=== PATIENT | female | born 1955 | race Caucasian/White ===

== ENCOUNTER → 2018-11-28 09:25 | Outpatient (CLI) | payer MEDICARE, OTHER, SELFPAY ==
[2018-11-28 12:45] LABS: ALB/GLOB Ratio 0.7 RATIO (0.9-2.4); AST(SGOT) 10 U/L (15-37); Alanine Aminotransfer ALT/SGPT 17 U/L (13-56); Albumin, Serum 3.1 g/dL (3.2-5.0); Alkaline Phosphatase 123 U/L (45-117); Anion Gap 8 (5-15); BUN 16 mg/dL (7-18); BUN/Creat Ratio 24.6 RATIO (10-20); Chloride 106 mmol/L (98-107); Creatinine, Serum 0.65 mg/dL (0.55-1.02); EST Glomerular Filtration Rate 97 mL/min (>60); Est Glom Filt Rate - Afr Amer 117 mL/min (>60); Globulin 4.7 g/dL (2.2-4.2); Glucose 192 mg/dL (74-106); Protein, Total 7.8 g/dL (6.4-8.2); Sodium Level 136 mmol/L (136-145)
[2018-11-28 12:48] LABS: Hemoglobin A1c 8.5 % (4.2-6.3)
== END ==
PROVIDERS: Family Provider Family Medicine; PCP Family Medicine; Referring Provider Family Medicine; Visit Provider Family Medicine
DX: E11.9 Type 2 diabetes mellitus without complications (principal); I10 Essential (primary) hypertension
CPT/HCPCS: 36415; 80053; 83036

== ENCOUNTER → 2019-03-12 08:20 | Outpatient (CLI) | payer MEDICARE, OTHER, SELFPAY ==
[2019-03-12 11:11] LABS: Hemoglobin A1c 6.9 % (4.2-6.3)
[2019-03-12 11:13] LABS: ALB/GLOB Ratio 0.7 RATIO (0.9-2.4); AST(SGOT) 9 U/L (15-37); Alanine Aminotransfer ALT/SGPT 14 U/L (13-56); Albumin, Serum 3.4 g/dL (3.2-5.0); Alkaline Phosphatase 121 U/L (45-117); Anion Gap 7 (5-15); BUN 21 mg/dL (7-18); BUN/Creat Ratio 29.6 RATIO (10-20); Calcium,Total 9.1 mg/dL (8.5-10.1); Chloride 104 mmol/L (98-107); Creatinine, Serum 0.71 mg/dL (0.55-1.02); EST Glomerular Filtration Rate 88 mL/min (>60); Est Glom Filt Rate - Afr Amer 106 mL/min (>60); Globulin 4.6 g/dL (2.2-4.2); Glucose 175 mg/dL (74-106); Potassium 4.1 mmol/L (3.5-5.1); Sodium Level 138 mmol/L (136-145)
[2019-03-13 08:18] LABS: LDL, Direct 120295 81 mg/dL (0-99)
== END ==
PROVIDERS: Family Provider Family Medicine; PCP Family Medicine; Referring Provider Family Medicine; Visit Provider Family Medicine
DX: E11.9 Type 2 diabetes mellitus without complications (principal); I10 Essential (primary) hypertension; E78.2 Mixed hyperlipidemia
CPT/HCPCS: 36415; 80053; 83036; 83721

== ENCOUNTER 2020-03-20 15:42 | Emergency (ER) | payer MEDICARE, OTHER, SELFPAY ==
[2020-03-20 15:43] VITALS: BP 158/89; PULSE 103; RESP 18; TEMP 36.4; O2SAT 99; BMI 28.5
--- NOTE | 2020-03-20 16:33 | ED.VISSUMM ---
- ER Visit Summary Date of Service: 03/20/20 Chief Complaint: Shortness of breath History of Present Illness: The patient is a 64 F who presents with shortness of breath that has been getting worse over the past 8 to 9 days. Patient states it is worse with any exertion. Patient states nothing seems to help with it. Patient admits to a cough but denies any sputum production. Patient also admits to a sore throat and some rhinorrhea. Patient denies any fevers but admits to intermittent subjective chills. Patient denies any chest pain. 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 Patient states she called her primary care physician who referred her to the emergency department because of the possible Covid exposure and shortness of breath. Physical Examination: Vital signs are stable. Patient is afebrile. Patient is in no acute distress. Oral mucosa is pink and moist. Neck is supple. Trachea is midline. There is no JVD noted. Heart was regular rate and rhythm. Lungs are clear and equal bilaterally. Abdomen is soft. Bowel sounds are normal. There is no tenderness. There is no rebound or guarding noted. Skin is warm dry. Cranial nerves II through XII are intact. There are no focal motor or sensory deficits noted. Extremities are intact. Test Results: CBC shows a slight leukocytosis of 14.0. Comprehensive metabolic profile was essentially within normal limits. Chest x-ray does not show any acute cardiopulmonary process. This was interpreted by the radiologist and reviewed by myself. Emergency Department Course and Treatment: Patient was given 4 puffs of an albuterol inhaler here. Patient is feeling better on reevaluation. A send out COVID-19 test was obtained. Patient was instructed to follow-up with her primary care physician for results of this. Patient was given the albuterol inhaler to take as needed for shortness of breath. Patient was instructed return if worse in any way. Patient understood and was agreeable with the plan. All questions were answered. Disposition: Discharge home Impression: Dyspnea This note was generated with [employer] dictation software. It may contain incorrect words, spelling, and punctuation that were not noted in review of the chart prior to signing ED Disposition - Plan for ED Patient: Disposition: Home or Assisted Living Diagnosis: Dyspnea Instructions: ED Dyspnea Referrals: Arturo Bravo MD [Primary Care Provider] - 3-5 Days
--- NOTE | 2020-03-20 17:05 | RAD_ITS ---
STUDY: X-RAY CHEST REASON FOR EXAM: Female, 64 years old. pt had positive covid exposure on 03/08. diarrhea last week and now having sob, sore throat,perales. TECHNIQUE: Single AP portable view of the chest. COMPARISON: None. FINDINGS: The lungs are clear and expanded. There is no demonstrated pleural abnormality. Normal size heart. Normal mediastinum and kathleen. Normal visualized pulmonary arteries. Normal visualized aortic arch and descending thoracic aorta. Normal visualized thoracic spine. Normal visualized ribs, clavicles, and shoulders. There is no demonstrated abnormality of the visualized soft tissue structures of the upper abdomen. RAD/Chest 1 View (Portable) IMPRESSION: Normal x-ray examination of the chest. Electronically Signed: Karthik Olivier MD at 17:32 EST Tel , Service support ,
[2020-03-20 17:15] LABS: Absolute Lymphocyte Count 2.55 X10^3/uL (0.83-4.51); Absolute Neutrophil Count 10.2 X10^3/uL (2.0-7.7); Basophil# 0.08 X10^3/uL; Basophil% 0.6 % (0-1); Eosinophil# 0.26 X10^3/uL; Eosinophils% 1.9 % (0-5); Hematocrit 39.4 % (37-47); Hemoglobin 12.9 g/dL (12.0-15.0); Lymphocyte # 2.55 X10^3/ul (4.0); Lymphocyte % 18.2 % (19-41); Mean Corp Hgb Conc 32.7 g/dL (32-36); Mean Corpuscular Hgb 29.8 pg (27.0-32.0); Mean Platelet Vol. 8.5 fl (6.2-12.0); Monocyte# 0.83 X10^3/uL; Monocyte% 5.9 % (0-10); NRBC Flagged by Analyzer 0 % (0-5); Neutrophil # 10.23 X10^3/uL (2.7-7.7); Platelet Count 432 K/mm3 (150-450); RBC Distribution Width CV 13.2 % (11.6-14.6); RBC Distribution Width SD 44.1 fl (35.1-43.9); Red Blood Count 4.33 M/mm3 (4.2-5.4)
[2020-03-20 17:18] LABS: ALB/GLOB Ratio 0.8 RATIO (0.9-2.4); AST(SGOT) 11 U/L (15-37); Alanine Aminotransfer ALT/SGPT 25 U/L (13-56); Albumin, Serum 3.4 g/dL (3.2-5.0); Alkaline Phosphatase 124 U/L (45-117); Anion Gap 5 (5-15); BUN 17 mg/dL (7-18); BUN/Creat Ratio 23.5 RATIO (10-20); Calcium,Total 8.9 mg/dL (8.5-10.1); Chloride 107 mmol/L (98-107); Creatinine, Serum 0.72 mg/dL (0.55-1.02); EST Glomerular Filtration Rate 85 mL/min (>60); Est Glom Filt Rate - Afr Amer 103 mL/min (>60); Globulin 4.4 g/dL (2.2-4.2); Glucose 185 mg/dL (74-106); Potassium 4.5 mmol/L (3.5-5.1); Protein, Total 7.8 g/dL (6.4-8.2); Sodium Level 139 mmol/L (136-145)
[2020-03-20 17:53] VITALS: BP 151/74; PULSE 99; RESP 20; TEMP 36.7; O2SAT 97
[2020-03-20 18:20] VITALS: BP 134/64; PULSE 84; RESP 17; O2SAT 94
== END 2020-03-20 18:29 | disposition home or self-care (01) ==
PROVIDERS: Emergency Provider Emergency Medicine; PCP Family Medicine
DX: R06.02 Shortness of breath (principal); Z20.828 Contact with and (suspected) exposure to other viral communicable diseases; Z87.891 Personal history of nicotine dependence
CPT/HCPCS: 71045; 80053; 85025; 87635; 94640; 99283; U0003

== ENCOUNTER → 2022-01-19 | Outpatient (CLI) | payer MEDICARE, OTHER, SELFPAY ==
[2022-01-19 15:55] LABS: Thyroid Stim Hormone (TSH) 2.02 uIU/mL (0.358-3.74)
== END | disposition home or self-care (01) ==
LOC: MTLAB 12:45
PROVIDERS: PCP Family Medicine; Referring Provider Family Medicine; Visit Provider Family Medicine
DX: E03.9 Hypothyroidism, unspecified (principal)
CPT/HCPCS: 36415; 84443

== ENCOUNTER → 2022-03-16 | Outpatient (CLI) | payer MEDICARE, OTHER, SELFPAY ==
[2022-03-16 12:45] LABS: ALB/GLOB Ratio 0.8 RATIO (0.9-2.4); AST(SGOT) 10 U/L (15-37); Alanine Aminotransfer ALT/SGPT 17 U/L (13-56); Albumin, Serum 3.3 g/dL (3.2-5.0); Alkaline Phosphatase 120 U/L (45-117); Anion Gap 5 (5-15); BUN 17 mg/dL (7-18); BUN/Creat Ratio 26.4 RATIO (10-20); Chloride 106 mmol/L (98-107); Cholesterol 148 mg/dL (200); Creatinine, Serum 0.64 mg/dL (0.55-1.02); EST Glomerular Filtration Rate 97 mL/min (>60); Est Glom Filt Rate - Afr Amer 117 mL/min (>60); Globulin 4.3 g/dL (2.2-4.2); Glucose 202 mg/dL (74-106); High Density Lipoprotein 46 mg/dL; Potassium 4.1 mmol/L (3.5-5.1); Protein, Total 7.6 g/dL (6.4-8.2); Sodium Level 138 mmol/L (136-145); Triglycerides 140 mg/dL; Very Low Density Lipoprotein 28 mg/dL (5-40)
[2022-03-16 12:52] LABS: Hematocrit 40.6 % (37-47); Hemoglobin 13.5 g/dL (12.0-15.0); Mean Corp Hgb Conc 33.3 g/dL (32-36); Mean Corpuscular Hgb 30.8 pg (27.0-32.0); Mean Corpuscular Volume 92.5 fL (81-99); Platelet Count 466 K/mm3 (150-450); RBC Distribution Width CV 13.3 % (11.6-14.6); RBC Distribution Width SD 45.4 fl (35.1-43.9); Red Blood Count 4.39 M/mm3 (4.2-5.4); White Blood Count 9.9 K/mm3 (4.4-11.0)
== END | disposition home or self-care (01) ==
LOC: MTLAB 10:06
PROVIDERS: PCP Family Medicine; Referring Provider Family Medicine; Visit Provider Family Medicine
DX: E11.9 Type 2 diabetes mellitus without complications (principal); I10 Essential (primary) hypertension; E78.2 Mixed hyperlipidemia
CPT/HCPCS: 36415; 80053; 80061; 83036; 85027

== ENCOUNTER 2022-12-29 20:40 | Emergency (ER) | payer MEDICARE, OTHER, SELFPAY ==
[2022-12-29 20:41] VITALS: BP 149/90; PULSE 86; RESP 20; TEMP 35.9; O2SAT 100; BMI 24.7
[2022-12-29 21:00] VITALS: O2SAT 99
--- NOTE | 2022-12-29 21:00 | CT_ITS ---
INDICATION: CP, SOB - H/O PE EXAMINATION: - CTA Chest WO/W Contrast Injection A radiation dose optimization technique was used for this scan. COMPARISON: 03/20/2020 chest radiograph. FINDINGS: Contrast enhanced serial CTA axial images through the chest with coronal and sagittal reformatted series. Additional dedicated coronal and sagittal MIP reformatted series provided as well. IV Contrast dosage and agent: 96 cc [id number] IV. MEDIASTINUM: No acute thoracic aortic abnormality. No pulmonary artery filling defects. Mediastinum is otherwise unremarkable. LUNG PARENCHYMA: No acute pulmonary parenchymal abnormality. 5 mm right apical pulmonary nodule, best appreciated on coronal image 124 of series 601 and axial image 233 of series 2. PLEURA: No pleural effusion. No pneumothorax. BONES: Severe sternomanubrial joint degenerative change. UPPER ABDOMEN: Unremarkable. CT/CTA Chest W/WO Contrast IMPRESSION: No pulmonary embolus or acute aortic abnormality. Dominant 5 mm pulmonary nodule. Recommend comparison with previous imaging to document long-term stability versus follow-up evaluation as per Fleischner guidelines as neoplastic process is not excluded. Electronically Signed: Shane Parker MD at 22:44 EDT ,
[2022-12-29 21:10] LABS: Absolute Lymphocyte Count 3.65 X10^3/uL (0.83-4.51); Absolute Neutrophil Count 8.7 X10^3/uL (2.0-7.7); Basophil# 0.08 X10^3/uL; Basophil% 0.6 % (0-1); Eosinophil# 0.25 X10^3/uL; Eosinophils% 1.8 % (0-5); Hematocrit 37.2 % (37-47); Hemoglobin 12.5 g/dL (12.0-15.0); Lymphocyte # 3.65 X10^3/ul (0.83-4.51); Lymphocyte % 26.3 % (19-41); Mean Corp Hgb Conc 33.6 g/dL (32-36); Mean Corpuscular Hgb 30.3 pg (27.0-32.0); Mean Corpuscular Volume 90.3 fL (81-99); Mean Platelet Vol. 8.3 fl (6.2-12.0); Monocyte# 1.19 X10^3/uL; Monocyte% 8.6 % (0-10); NRBC Flagged by Analyzer 0 % (0-5); Neutrophil # 8.65 X10^3/uL (2.7-7.7); Neutrophil % 62.4 % (47-70); Platelet Count 445 K/mm3 (150-450); RBC Distribution Width CV 13.1 % (11.6-14.6); RBC Distribution Width SD 43.3 fl (35.1-43.9); Red Blood Count 4.12 M/mm3 (4.2-5.4); White Blood Count 13.9 K/mm3 (4.4-11.0)
[2022-12-29] MEDS: Aspirin 81 MG TAB.CHEW 324 MG PO (21:10)
[2022-12-29] MEDS: 0.9% Normal Saline 1,000 ML 150 ML IV (21:11)
--- NOTE | 2022-12-29 21:11 | ED.VIS.CHEST ---
HPI History of Present Illness Chief Complaint: Chest Pain Informant: patient Onset/Context/Timing Onset: Today Activity at onset: sudden Narrative Narrative: Patient presents with rather sudden onset of right-sided chest pain and shortness of breath approximate 30 minutes prior to arrival. She is a history of a pulmonary embolism 20 years ago. She is currently on low-dose aspirin but no other form of anticoagulant. Patient does state that she was at the gym today and was doing chest presses. She has not had cough or fever. [facility] Medical History (Updated 12/29/22 @ 23:[address] Barb Perrin MD) Depression History of diabetes mellitus Hypothyroidism Allergy/AdvReac Type Severity Reaction Status Date / Time No Known Allergies Allergy Verified 12/29/22 20:44 Social History Smoking Status: Former smoker ROS ROS ED Constitutional Constitutional ED: Denies chills or fever(s) Eyes Eyes: Denies change in vision or discharge from eye(s) ENT ENT ED: Denies discharge from eye(s), rhinorrhea or sore throat Cardiovascular Cardiovascular: Reports chest pain; Denies palpitations Respiratory/Chest Respiratory/Chest: Reports dyspnea; Denies cough Gastrointestinal Gastrointestinal: Denies abdominal pain, nausea or vomiting Musculoskeletal Musculoskeletal: Denies back pain or extremity pain Integumentary Denies Abrasions or rash Neurologic Neurologic: Denies headache(s) or weakness Psychiatric Psychiatric: Denies anxiety or depression Allergic/Immunologic Allergic/Immunologic ED: Denies lip swelling or urticaria EXAM Physical Exam Const Vital Signs: 12/29/22 20:41 12/29/22 21:00 12/29/22 22:00 Temperature 96.6 F L Temperature Source Temporal Pulse Rate 86 98 Respiratory Rate 20 H 13 Blood Pressure 149/90 H 120/63 Blood Pressure Mean 109 82 Pulse Ox 100 99 93 Oxygen Delivery Method Room Air Room Air Room Air 12/29/22 22:27 12/29/22 23:00 Temperature Temperature Source Pulse Rate 87 91 Respiratory Rate 15 20 H Blood Pressure 128/63 H 118/59 L Blood Pressure Mean 84 78 Pulse Ox 97 93 Oxygen Delivery Method Room Air Room Air Positive well nourished and well developed General Appearance ED: well developed HEENT Reports normocephalic and head/scalp atraumatic Eyes PERRL and EOMs intact bilaterally Neck supple Chest Wall inspection of chest normal and palpation of chest normal Resp normal respiratory effort and clear to auscultation bilaterally Cardio regular rate and regular rhythm GI normal to inspection, nondistended, normoactive bowel sounds Palpation: soft Extremity normal to inspection Neuro oriented x3 and no sensory deficits noted Sensorium / Orientation: alert Motor Exam: strength 5/5 throughout Psych mental status grossly normal Skin no rashes or lesions noted Heart Score History: Slightly/Non-Suspicious ECG: Normal Age: >/= 65 years Risk Factors: 1 or 2 Risk Factors Score: 3 MDM MDM MDM Narrative Medical decision making narrative: Patient placed on conveyor monitor. Aspirin ordered. Labwork obtained to evaluate for leukocytosis, anemia, and electrolyte derangement. EKG obtained to evaluate for cardiac arrhythmia/ischemia. Given the patient's symptoms and history of pulmonary embolism CTA of the chest is obtained to evaluate for this. Lab Data Attestation: I reviewed the patient's lab results. Labs: Laboratory Results - last 24 hr 12/29/22 12/29/22 20:55 23:10 WBC 13.9 H RBC 4.12 L Hgb 12.5 Hct 37.2 MCV 90.3 MCH 30.3 MCHC 33.6 RDW Std Deviation 43.3 RDW Coeff of Kalia 13.1 Plt Count 445 MPV 8.3 Immature Gran % (Auto) 0.300 Neut % (Auto) 62.4 Lymph % (Auto) 26.3 Bibb % (Auto) 8.6 Eos % (Auto) 1.8 Baso % (Auto) 0.6 Absolute Neuts (auto) 8.7 H Absolute Lymphs (auto) 3.65 Nucleated RBC % 0 Sodium 139 Potassium 4.1 Chloride 104 Carbon Dioxide 31.0 Anion Gap 4 L BUN 14 Creatinine 0.89 Estim Creat Clear Calc 53.68 Est GFR (MDRD) Af Amer 81 Est GFR (MDRD) Non-Af 67 BUN/Creatinine Ratio 15.7 Glucose 110 H Calcium 9.3 Troponin I High Sens 8 8 Radiography Diagnostic Testing: Clinical Impression(s) from Imaging Studies Chest CTA 12/29/22 21:00 IMPRESSION: No pulmonary embolus or acute aortic abnormality. Dominant 5 mm pulmonary nodule. Recommend comparison with previous imaging to document long-term stability versus follow-up evaluation as per Fleischner guidelines as neoplastic process is not excluded. Electronically Signed: Shane Parker MD at 22:44 EDT , EKG Initial EKG: Attestation: I personally reviewed and interpreted this EKG as follows: Interpretation: Sinus Rhythm (Sinus at 90 with no acute ischemia.) Follow-up EKG: Attestation: I personally reviewed and interpreted this EKG as follows: Interpretation: Sinus Rhythm (Sinus at 89 with nonspecific T wave flattening in the lateral leads. No acute ST change) Treatment and Re-Evaluation :: CBC was a white count of 13.9 with a hemoglobin of 12.5. Differential is unremarkable. Chemistry studies are unremarkable. Troponin is normal at 8. EKG reveals no acute ischemia. CTA of the chest is obtained and reveals no evidence of pulmonary embolism. Pulmonary nodule is noted that requires either comparison to a prior study or follow-up. When the patient returned from CT, she stated that she fell with her arms and legs were very heavy. Nursing staff noted her to have a hoarse voice. She states she felt like she had a sore throat with some slight tightness in her throat. Due to concern for reaction to the contrast she was given Benadryl and Solu-Medrol. Repeat EKG is performed. She has nonspecific lateral T wave flattening. No acute ST change. On repeat evaluation patient's voice is improving. Her chest pain is improved. CTA of the chest does return with no evidence of pulmonary embolism and her delta troponin returns normal at 8. At this time patient be observed for another hour given her potential allergic reaction to contrast. I will have her written ready for discharge assuming she has no further complications. Patient is comfortable with this plan. Discharge Plan Triage Chief Complaint: Chest Pain ED Provider: Barb Perrin Dx/Rx/DC Orders Clinical Impression: Chest pain Instructions: ED Chest Pain, Uncertain Cause Primary Care Provider: Jose Ly Referrals: Jose Ly MD [Primary Care Provider] - Keep Mar[facility] appointment Disposition Disposition: Home, Self Care
[2022-12-29 21:28] LABS: Anion Gap 4 (5-15); BUN 14 mg/dL (7-18); BUN/Creat Ratio 15.7 RATIO (10-20); Calcium,Total 9.3 mg/dL (8.5-10.1); Chloride 104 mmol/L (98-107); Creatinine, Serum 0.89 mg/dL (0.55-1.02); EST Glomerular Filtration Rate 67 mL/min (>60); Est Glom Filt Rate - Afr Amer 81 mL/min (>60); Estimated Creatinine Clearance 53.68 ml/min; Glucose 110 mg/dL (74-106); Potassium 4.1 mmol/L (3.5-5.1); Sodium Level 139 mmol/L (136-145); Troponin-I HS (w/2H Reflex) 8 pg/mL (3.0-54.0)
[2022-12-29 22:00] VITALS: BP 120/63; PULSE 98; RESP 13; O2SAT 93
[2022-12-29] MEDS: MethylPREDNISolone 125 MG/2 ML Vial IV (22:16)
[2022-12-29] MEDS: DiphenhydrAMINE 50 MG/ML Syringe 25 MG IV (22:18)
[2022-12-29 22:27] VITALS: BP 128/63; PULSE 87; RESP 15; O2SAT 97
[2022-12-29 23:00] VITALS: BP 118/59; PULSE 91; RESP 20; O2SAT 93
[2022-12-29 23:06] LABS: Reflex Troponin-HS? (from REC) Y
[2022-12-29 23:39] LABS: Troponin-I HS 8 pg/mL (3.0-54.0)
[2022-12-30] VITALS: BP 130/73; PULSE 95; RESP 16; O2SAT 96
[2022-12-30 01:07] VITALS: BP 130/73; PULSE 95; RESP 16; O2SAT 96
== END 2022-12-30 01:10 | disposition home or self-care (01) ==
PROVIDERS: Emergency Provider Emergency Medicine; PCP Family Medicine; Visit Provider Emergency Medicine
DX: R07.9 Chest pain, unspecified (principal); Z87.891 Personal history of nicotine dependence; Z86.711 Personal history of pulmonary embolism; Z79.82 Long term (current) use of aspirin
CPT/HCPCS: 71275; 80048; 84484; 85025; 93005; 96361; 96374; 96375; 99285; J7030; Q9967; A4216

== ENCOUNTER → 2023-03-14 | Outpatient (CLI) | payer MEDICARE, OTHER, SELFPAY ==
[2023-03-14 12:22] LABS: Hematocrit 39.2 % (37-47); Mean Corp Hgb Conc 33.2 g/dL (32-36); Mean Corpuscular Hgb 31.1 pg (27.0-32.0); Mean Corpuscular Volume 93.8 fL (81-99); Mean Platelet Vol. 8.6 fl (6.2-12.0); Platelet Count 446 K/mm3 (150-450); RBC Distribution Width CV 13.2 % (11.6-14.6); RBC Distribution Width SD 45.3 fl (35.1-43.9); Red Blood Count 4.18 M/mm3 (4.2-5.4); White Blood Count 9.5 K/mm3 (4.4-11.0)
[2023-03-14 12:55] LABS: Vitamin B12 323 pg/mL (211-911)
[2023-03-14 13:25] LABS: ALB/GLOB Ratio 0.7 RATIO (0.9-2.4); AST(SGOT) 12 U/L (15-37); Alanine Aminotransfer ALT/SGPT 17 U/L (13-56); Albumin, Serum 3.1 g/dL (3.2-5.0); Alkaline Phosphatase 114 U/L (45-117); Anion Gap 6 (5-15); BUN 15 mg/dL (7-18); BUN/Creat Ratio 19.3 RATIO (10-20); Calcium,Total 8.7 mg/dL (8.5-10.1); Chloride 105 mmol/L (98-107); Cholesterol 151 mg/dL (200); Creatinine, Serum 0.78 mg/dL (0.55-1.02); EST Glomerular Filtration Rate 78 mL/min (>60); Est Glom Filt Rate - Afr Amer 95 mL/min (>60); Globulin 4.3 g/dL (2.2-4.2); Glucose 170 mg/dL (74-106); High Density Lipoprotein 56 mg/dL; Magnesium 2.2 mg/dL (1.6-2.6); Potassium 4.2 mmol/L (3.5-5.1); Protein, Total 7.4 g/dL (6.4-8.2); Sodium Level 136 mmol/L (136-145); Thyroid Stim Hormone (TSH) 2.29 uIU/mL (0.358-3.74); Triglycerides 109 mg/dL; Very Low Density Lipoprotein 22 mg/dL (5-40)
== END | disposition home or self-care (01) ==
LOC: MTLAB 09:40
PROVIDERS: PCP Family Medicine; Referring Provider Family Medicine; Visit Provider Family Medicine
DX: E03.9 Hypothyroidism, unspecified (principal); E11.9 Type 2 diabetes mellitus without complications; I10 Essential (primary) hypertension; E78.2 Mixed hyperlipidemia
CPT/HCPCS: 36415; 80053; 80061; 82607; 83036; 83735; 84443; 85027

== ENCOUNTER → 2024-03-01 | Outpatient (CLI) | payer MEDICARE, SELFPAY ==
[2024-03-01 11:58] LABS: Hematocrit 38.5 % (37-47); Hemoglobin 12.3 g/dL (12.0-15.0); Mean Corp Hgb Conc 31.9 g/dL (32-36); Mean Corpuscular Hgb 29.1 pg (27.0-32.0); Mean Platelet Vol. 8.5 fl (6.2-12.0); Platelet Count 477 K/mm3 (150-450); RBC Distribution Width CV 13.1 % (11.6-14.6); RBC Distribution Width SD 43.8 fl (35.1-43.9); Red Blood Count 4.23 M/mm3 (4.2-5.4); White Blood Count 8.8 K/mm3 (4.4-11.0)
[2024-03-01 12:28] LABS: ALB/GLOB Ratio 0.8 RATIO (0.9-2.4); AST(SGOT) 13 U/L (15-37); Alanine Aminotransfer ALT/SGPT 19 U/L (13-56); Albumin, Serum 3.3 g/dL (3.2-5.0); Alkaline Phosphatase 121 U/L (45-117); Anion Gap 6 (5-15); BUN 16 mg/dL (7-18); BUN/Creat Ratio 21.9 RATIO (10-20); Calcium,Total 8.9 mg/dL (8.5-10.1); Chloride 108 mmol/L (98-107); Creatinine, Serum 0.73 mg/dL (0.55-1.02); EST Glomerular Filtration Rate 83 mL/min (>60); Est Glom Filt Rate - Afr Amer 101 mL/min (>60); Globulin 4.1 g/dL (2.2-4.2); Glucose 178 mg/dL (74-106); Potassium 4.2 mmol/L (3.5-5.1); Protein, Total 7.4 g/dL (6.4-8.2); Sodium Level 139 mmol/L (136-145)
[2024-03-01 15:08] LABS: Hemoglobin A1c 6.7 % (3.8-5.6)
== END | disposition home or self-care (01) ==
PROVIDERS: PCP Family Medicine; Referring Provider Family Medicine; Visit Provider Family Medicine
DX: E11.9 Type 2 diabetes mellitus without complications (principal); I10 Essential (primary) hypertension
CPT/HCPCS: 36415; 80053; 83036; 84443; 85027

== ENCOUNTER → 2024-09-11 | Outpatient (CLI) | payer MEDICARE, SELFPAY ==
[2024-09-11 11:04] LABS: Hemoglobin A1c 7.3 % (<=5.6)
[2024-09-11 11:07] LABS: ALB/GLOB Ratio 1.1 RATIO (0.9-2.4); AST(SGOT) 14 U/L (<=31); Alanine Aminotransfer ALT/SGPT 14 U/L (<=34); Albumin, Serum 3.9 g/dL (3.4-4.8); Alkaline Phosphatase 113 U/L (35-104); Anion Gap 11 (5-15); BUN 20 mg/dL (4-19); BUN/Creat Ratio 29.9 RATIO (10-20); Calcium,Total 9.2 mg/dL (7.6-11.0); Carbon Dioxide 24.3 mmol/L (21.0-32.0); Chloride 102 mmol/L (98-108); Creatinine, Serum 0.68 mg/dL (0.70-1.20); EST Glomerular Filtration Rate 93 (>60); Globulin 3.4 g/dL (2.2-4.2); Glucose 182 mg/dL (70-99); Potassium 4.5 mmol/L (3.3-5.1); Protein, Total 7.3 g/dL (5.9-8.4); Sodium Level 137 mmol/L (133-145)
== END | disposition home or self-care (01) ==
LOC: MTLAB 09:03
PROVIDERS: PCP Family Medicine; Referring Provider Family Medicine; Visit Provider Family Medicine
DX: E11.9 Type 2 diabetes mellitus without complications (principal)
CPT/HCPCS: 36415; 80053; 83036

== ENCOUNTER → 2025-03-15 | Outpatient (CLI) | payer MEDICARE, SELFPAY ==
--- OUTSIDE RECORDS SUMMARY | 2025-03-15 09:45 | XMS RPT_ITS | CCD ---
Author Organization [facility] Care Team Providers Care Sound Effects Supervisor Name Role Phone Mando Bravo Unavailable Unavailable FurnMaria Eugenia munguia Unavailable Unavailable FurnMaria Eugenia munguia Unavailable [phone] Unavailable Unavailable Aliyah, Dr. Maria Eugenia Uribe Referring Un available Furness, Dr. Maria Eugenia Uribe Attending Un available Furnezra, Dr. Maria Eugenia Uribe Primary Care Un available FurnMaria Eugenia munguia MD Primary Care Provider Aliyah, Dr. Maria Eugenia Uribe Primary Care Un available ARGENIS GARCIA Attending Unavailable ARGENIS GARCIA Referring Unavailable Furness, Dr. Maria Eugenia Uribe Primary Care Un available ARGENIS GARCIA Attending Unavailable ARGENIS GARCIA Referring Unavailable ARGENIS GARCIA Referring Unavailable Furness, Dr. Maria Eugenia Uribe Primary Care Un available ARGENIS GARCIA Attending Unavailable Furness, Dr. Maria Eugenia Uribe Primary Care Un available ARGENIS GARCIA Attending Unavailable Furnezra, Dr. Maria Eugenia Uribe Primary Care Un available Furness, Dr. Maria Eugenia Uribe Attending Un available Furnezra, Dr. Maria Eugenia Uribe Referring Un available FurnMaria Eugenia munguia MD Primary Care Provider Maria Eugenia Ly MD Unavailable [phone] Maria Eugenia Ly MD Unavailable [phone] ARGENIS GARCIA Referring Unavailable MARIA EUGENIA LY Primary Care Unavailable Maria Eugenia Ly MD Primary Care Provider Maria Eugenia Ly MD Unavailable [phone] Maria Eugenia Ly MD Unavailable [phone] Maria Eugenia Ly MD Primary Care Provider Dr. Maria Eugenia Ly MD Attending Provider Dr. Maria Eugenia Ly MD Referring Provider [phone] Furness, Maria Eugenia Referring Unavailable Furness, Maria Eugenia Attending Unavailable Furness, Maria Eugenia Primary Care Unavailable Furness, Maria Eugenia Primary Care Unavailable Furness, Maria Eugenia Referring Unavailable Furness, Maria Eugenia Attending Unavailable Furness Maria Eugenia DE OLIVEIRA Primary Care Provider Maria Eugenia Ly MD Unavailable [phone] Maria Eugenia Ly MD Unavailable [phone] FURNESS, MARIA EUGENIA T Attending Unavailable FURNESS, MARIA EUGENIA T Referring Unavailable FURNESS, MARIA EUGENIA T Primary Care Unavailable FURNESS, MARIA EUGENIA T Attending Unavailable FURNESS, MARIA EUGENIA T Referring Unavailable FURNESS, MARIA EUGENIA T Primary Care Unavailable Furness Maria Eugenia DE OLIVEIRA Primary Care Provider CLUTTER, ISAIAS Referring Unavailable FURNESS, MARIA EUGENIA T Primary Care Unavailable FURNESS, MARIA EUGENIA T Primary Care Unavailable CLUTTER, ISAIAS Attending Unavailable Allergies Allergy Classification Reported Allergen(s) Allergy Type Date of Onset Reaction(s) Facility (1 source) ALLERGIES NOT ON FILE; Translations: [ALLERGIES NOT ON FILE] Propensity to adverse reactions (disorder) [facility] 2 Repository Medications Current Medications Medication Drug Class(es) Dates Sig (Normalized) Sig (Original) amitriptyline hydrochloride 25 mg oral tablet (18 sources) Tricyclic Antidepressant Start: 03-06-2019 End: 03-16-2025 amitriptyline (ELAVIL) 25 mg tablet 06/03/2022 Active aspirin 81 mg delayed release oral tablet (16 sources) Platelet Aggregation Inhibitor, Nonsteroidal Anti-inflammatory Drug take 1 tablet by mouth once daily aspirin, enteric coated (ASPIRIN, ENTERIC COATED) 81 mg EC tablet Take 81 mg by mouth once daily. Active Aspirin 81 MG TA BS TAKE 1 TABLET DAILY. Quantity: 0 Refills: 0 Ordered: 26-Mar-2019 DO Active Comment on above: Take 81 mg by mouth once daily. doxycycline hyclate 100 mg oral capsule (1 source) Tetracycline-class Drug Start: 4 End: 4 take 1 capsule by mouth twice daily doxycycline hyclate (VIBRAMYCIN) 100 mg capsule Indications: Upper respiratory tract infection, unspecified type Take 1 capsule by mouth two times a day for 10 days. 20 capsule 0 06/01/2023 06/11/2023 Active Comment on above: Take 1 capsule by mo [facility] two times a day for 10 days. escitalopram 20 mg oral tablet (18 sources) Serotonin Reuptake Inhibitor Start: End: escitalopram oxalate (LEXAPRO) 20 mg tablet 06/03/2022 Active levothyroxine sodium 0.075 mg oral tablet (18 sources) l-Thyroxine Start: 9 End: 5 levothyroxine (SYNTHROID) 75 mcg tablet 06/03/2022 Active Start: 03-06-2019 take 1 tablet by elizabeth th once daily Levothyroxine Sodium 50 MCG Oral Tablet TAKE 1 TABLET DAILY. Quantity: 90 Refills: 3 Ordered: 25-Mar-2021 Maria Eugenia Ly MD Start : 06-Mar-2019 Active losartan potassium 25 mg oral tablet (18 sources) Angiotensin 2 Receptor Leeroy Start: 03-06-2019 End: 03-16-2025 losartan (COZAAR) 25 mg tablet 06/03/2022 Active 24 hr metFORMIN hydrochloride 500 mg extended release oral tablet (17 sources) Biguanide Start: 03-15-2023 End: 03-16-2025 take 2 tablets by mouth once daily metFORMIN XR 500 mg 24 hr tablet Indications: Type 2 diabetes mellitus without complication, without long-term current use of insulin Take 2 tablets (1,000 mg) by mouth once daily. 180 tablet 3 03/16/2024 03/16/2025 Active take 1 tablet by elizabeth th every twenty-four hours metFORMIN ER (GLUCOPHAGE XR) 500 mg 24 h r tablet Take by mouth. Active take 2 tablets by mouth once kiki ly metFORMIN XR (Glucophage-XR) 500 mg 24 hr tablet Take 2 tablets (1,000 mg) by mouth once daily. 0 Active take 2 tablets by mouth once kiki ly metFORMIN HCl ER 500 MG Oral Tablet Extended Release 24 Hour TAKE 2 TABLET Daily Quantity: 180 Refills: 3 Ordered: 01-Mar-2022 Maria Eugenia Ly MD Active Comment on above: Take by mouth. methocarbamol 500 mg oral tablet (1 source) Muscle Relaxant Start: 10-16-19 End: 10-26-19 take 1 tablet by mouth three times daily methocarbamol (ROBAXIN) 500 mg tablet Indications: Lumbar back pain Take 1 tablet by mouth three times a day for 10 days. 30 tablet 10/15/2024 10/25/2024 Active mupirocin 0.02 mg/mg topical ointment (1 source) RNA Synthetase Inhibitor Antibacterial Start: 06-01-19 End: 06-06-19 mupirocin (BACTROBAN) 2 % ointment Indications: Skin tear of left lower leg without complication, initial encounter Apply 1 application to affected area once daily for 5 days. 22 g 0 06/01/2023 06/06/2023 Active Comment on above: Apply 1 application to affected area once daily for 5 days. nitrofurantoin, macrocrystals 25 mg / nitrofurantoin, monohydrate 75 mg oral capsule (2 sources) Nitrofuran Antibacterial Start: 06-04-19 End: 06-09-19 take 1 capsule by mouth twice daily nitrofurantoin monohydrate and macrocrystal (MACROBID) 100 mg capsule Take 1 capsule by mouth two times a day for 5 days. 10 capsule 0 06/04/2023 06/09/2023 Active Start: 08-23-2022 End: 08-28-2022 take 1 capsule by mouth twice daily at mealtime nitrofurantoin monohydrate and macrocrystal (MACROBID) 100 mg capsule Take 1 capsule by mouth twice daily with meals for 5 days. 10 capsule 0 08/23/2022 08/28/2022 Active Comment on above: Take 1 capsule by mo uth twice daily with meals for 5 days. Take 1 capsule by mo uth two times a day for 5 days. pravastatin sodium 20 mg oral tablet (18 sources) HMG-CoA Reductase Inhibitor Start: 03-06-2019 End: 03-16-2025 pravastatin (PRAVACHOL) 20 mg tablet 06/03/2022 Active predniSONE 10 mg oral tablet (1 source) Start: 10-15-2024 End: 10-20-2024 take 1 tablet by mouth once daily predniSONE (DELTASONE) 10 mg tablet Indications: Lumbar back pain Take 1 tablet by mouth once daily for 5 days. 5 tablet 10/15/2024 10/20/2024 Active Problems Active Problems Problem Classification Problem Date Documented Da te Episodic/Chronic Anxiety disorders (17 sources) Anxiety; Translations: [Anxiety state, unspecified] Onset: 01-04-2023 01-04-2023 Chronic Diabetes mellitus without complication (20 sources) Diabetes mellitus; Translations: [Diabetes mellitus without mention of complication, type II or unspecified type, not stated as uncontrolled] Onset: 01-04-2023 01-04-2023 Chronic Comment on above: Diabetes; Disorders of lipid metabolism (17 sources) Mixed hyperlipidemia; Translations: [Mixed hyperlipidemia] Onset: 01-04-2023 01-04-2023 Chronic Essential hypertension (19 sources) Benign essential hypertension; Translations: [Benign essential hypertension] Onset: 01-04-2023 01-04-2023 Chronic Immunizations and screening for infectious disease (20 sources) Patient encounter status; Translations: [Other specified vaccination] Episodic Nonspecific chest pain (2 sources) Chest pain; Translations: [Chest pain, unspecified] 12-29-2022 Episodic Other complications of ; puerperium affecting management of mother (4 sources) Deliveries by ; Translations: [ delivery, without mention of indication, unspecified as to episode of care or not applicable] Episodic Comment on above: 02/21/1975; C/S; MAL E; 6LBS OZ06/30/1976; C/S; FEMALE; 5LBS 7OZ/; C/S; MALE; 7LBS08/31/1985; C/S; FEMALE; 9LBS; Other lower respiratory disease (3 sources) Dyspnea; Translations: [Dyspnea, unspecified] 03-21-2020 Episodic Other screening for suspected conditions (not mental disorders or infectious disease) (8 sources) Encounter for screening mammogram for malignant neoplasm of breast; Translations: [Encounter for screening for malignant neoplasm of cervix] Onset: 2022 Episodic Residual codes; unclassified (8 sources) Menopause present; Translations: [Symptomatic menopausal or female climacteric states] Episodic Spondylosis; intervertebral disc disorders; other back problems (4 sources) Low back pain; Translations: [Lumbar back pain] 10-15-2024 Episodic Thyroid disorders (19 sources) Acquired hypothyroidism; Translations: [Unspecified acquired hypothyroidism] Onset: 01-04-2023 01-04-2023 Chronic Unclassified (1 source) Patient encounter status 03-16-2024 Unclassified (1 source) Lumbar back pain; Translations: [Lumbar back pain] Onset: 10-15-2024 Past or Other Problems Problem Classification Problem Date Documented Da te Episodic/Chronic Genitourinary symptoms and ill-defined conditions (9 sources) Dysuria; Translations: [Dysuria] Onset: 01-04-2023 Resolved: 01-04-2023 Episodic Other non-traumatic joint disorders (20 sources) Shoulder pain; Translations: [Pain in joint, shoulder region] Onset: 01-04-2023 Resolved: 01-04-2023 01-04-2023 Episodic Residual codes; unclassified (6 sources) Past history of procedure; Translations: [Other specified personal history presenting hazards to health] Onset: 03-14-2020 Episodic Comment on above: 2022; Unclassified (4 sources) Finding of menstrual bleeding; Translations: [Menstruation] Comment on above: AGE 9; Unclassified (4 sources) Onset: 01-04-2023 Resolved: 10-03-2024 01-04-2023 Results Test Name Value Interpretation Reference Range Facility [facility] 10-15-2024 CNOV Office Visit (UCTR ) ----- PHILLY RICKS ([id number]) 1955 F Date Time Provider Department 10/15/24 5:15 PM ISAIAS [facility] During your visit today, we recorded the following information about you: Temperature Pulse Respiration Blood pressure 98.9 degrees 100/minute 21/minute 140/68 Weight 70.9 kg Isaias Schuler PA-C 10/15/2024 7:27 PM Signed This note was created using [employer]. Subjective Philly Ricks is a 69 year old female. Patient is a 69-year-old female who complains of low back pain that she has been experiencing for the past 1 day. Patient does have a history of urinary tract infection and is questioning whether she may be developing same. Patient denies dysuria or hematuria. Patient has no history of lower back pain and denies history of degenerative disc disease, fracture or surgery to her lumbar spine. Patient states she has full control of bowel and bladder denies episodes of incontinence. Patient reports that she did have a normal bowel movement earlier today. Patient reports no paresthesia or paralysis to her bilateral legs and states that she is able to bear weight and ambulate without difficulty. Patient denies specific accident, injury or movement to explain her low back pain symptoms at this time. Back Pain Review of Systems Musculoskeletal: Positive for back pain. All other systems reviewed and are negative. Objective BP 140/68 Pulse 100 Temp 37.2 ?C (98.9 ?F) Resp 21 Wt 70.9 kg (156 lb 4.9 oz) SpO2 98% Physical Exam Vitals and nursing note reviewed. Constitutional: Appearance: Normal appearance. She is normal weight. HENT: Head: Normocephalic and atraumatic. Nose: Nose normal. Mouth/Throat: Mouth: Mucous membranes are moist. Pharynx: Oropharynx is clear. Eyes: Extraocular Movements: Extraocular movements intact. Conjunctiva/sclera: Conjunctivae normal. Pupils: Pupils are equal, round, and reactive to light. Cardiovascular: Rate and Rhythm: Normal rate. Pulses: Normal pulses. Pulmonary: Effort: Pulmonary effort is normal. Breath sounds: Normal breath sounds. Musculoskeletal: General: No swelling, tenderness, deformity or signs of injury. Normal range of motion. Cervical back: Normal range of motion and neck supple. Right lower leg: No edema. Left lower leg: No edema. Skin: General: Skin is warm and dry. Capillary Refill: Capillary refill takes less than 2 seconds. Findings: No bruising or erythema. Neurological: General: No focal deficit present. Mental Status: She is alert and oriented to person, place, and time. Sensory: No sensory deficit. Motor: No weakness. Coordination: Coordination normal. Gait: Gait normal. Psychiatric: Mood and Affect: Mood normal. Behavior: Behavior normal. Thought Content: Thought content normal. Judgment: Judgment normal. Assessment and Plan Physical exam findings as noted above. Urinalysis is completely negative with no leukocyte esterase, nitrite or protein. Trace blood is present. X-ray lumbar spine demonstrates disc space narrowing at multiple levels in addition to moderate osteophyte formation as described by the radiologist. Radiologist reports no additional acute findings. Patient was provided with prescriptions for Robaxin 500 mg and prednisone 10 mg. Supportive care instructions were discussed and the patient was clearly advised to report to an emergency department if she notes any acute worsening of her symptoms. Patient verbalizes excellent understanding of all of the information reviewed. CLINICAL IMPRESSION: Lumbar Back pain ASSESSMENT/PLAN: 1. Lumbar back pain - ICD9: 724.2, ICD10: M54.50 - XR LUMBAR GENERAL 3V AP/LAT/L5-S1 - METHOCARBAMOL 500 MG TABLET - PREDNISONE 10 MG TABLET MDM Amount and/or Complexity of Data Reviewed Clinical lab tests: ordered and reviewed Tests in the radiology section of CPT?: ordered and reviewed Risk of Complications, Morbidity, and/or Mortality Presenting problems: low Diagnostic procedures: low Management options: dorothea Schuler PA-C Allergies As of Date: 10/15/2024 (No Known Allergies) Date Reviewed: 06/01/2023 Reviewed by: Cony Martinez MA - Fully Assessed Reason for Visit: Back Pain [12] Cmt: Lower back pain x 3 days back spasms when getting up. Primary Visit Diagnosis:Lumbar back pain [M54.50] Order(s):UA DIP, URINE (POC) [[id number]] Order #: [id number]. #:[id number] XR LUMBAR GENERAL 3V AP/LAT/L5-S1 [[id number]] Order #: [id number] FUTURE methocarbamol (ROBAXIN) 500 mg tabletTake 1 tablet by mouth three times a day for 10 days.Disp: 30 tabletRfl: 0 predniSONE (DELTASONE) 10 mg tabletTake 1 tablet by mouth once daily for 5 days.Disp: 5 tabletRfl: 0 Prescriptions as of 10/15/2024 - methocarbamol (ROBAXIN) 500 mg tablet Take 1 tablet by mouth three times a day for 10 day (more content not included)... Normal [facility] UA DIP, URINE (POC)on 2024 BILIRUBIN UA (POCT) Negative Negative [facility] CLARITY UA (POCT) Clear [facility] COLOR UA (POCT) Other [facility] GLUCOSE UA (POCT) Negative Negative mg/dL [facility] Hemoglobin Ql (U) Trace-lysed Abnormal Negative [facility] Interpretation and review of laboratory results Abnormal [facility] KETONE UA (POCT) Negative Negative mg/dL [facility] LEUKOCYTES UA (POCT) Negative Negative [facility] NITRITE UA (POCT) Negative Negative [facility] PH UA (POCT) 6 4.5 - 8.0 [facility] Protein Ql (U) Negative Negative mg/dL [facility] SPECIFIC GRAVITY UA (POCT) <=1.005 Abnormal 1.005 - 1.030 [facility] UROBILINOGEN UA (POCT) 0.2 Normal E.U./dL [facility] Location:[address], [place], [place], [id number] [place] [address] POINT OF CARE [facility] XR LUMBAR 3V AP/LAT/L5-S1on 10-15-2024 XR LUMBAR 3V AP/LAT/L5-S1 * * *Final Report* * * DATE OF EXAM: Oct 15 2024 5:43PM WOX [id number] - XR LUMBAR 3V AP/LAT/L5-S1 / PROCEDURE REASON: Lumbar back pain * * * * Physician Interpretation * * * * EXAM TITLE: XR LUMBAR 3V AP/LAT/L5-S1 EXAM DATE/TIME: 10/15/2024 5:43 PM COMPARISON: None. CLINICAL INDICATION/HISTORY: Back pain. TECHNIQUE: AP, lateral and cone down lateral views of the lumbar spine are presented. FINDINGS: There are five ajl-rgu-mbctgwj lumbar vertebrae. No fracture or subluxations are noted. There appears be L2-3, L3-4 and L5-S1 disc space narrowing. There is moderate osteophyte formation. IMPRESSION: Lumbar spine degenerative changes as described above. [employer]: ALEXSANDRA Transcribe Date/Time: Oct 15 2024 7:09P Dictated by : AUGUST VEGA MD This examination was interpreted and the report reviewed and electronically signed by: AUGUST VEGA MD on Oct 15 2024 7:10PM EST [id number] Normal [facility] XR Lumbar spine 3 Viewson IMPRESSION: Lumbar s pine degenerative changes as described above. [employer]: ALEXSANDRA Transcribe Date/Time: Oct 15 2024 7:09P Dictated by : AUGUST VEGA MD This examination was interpreted and the report reviewed and electronically signed by: AUGUST VEGA MD on Oct 15 2024 7:10PM EST DIVISION OF RADIOLOGY * * *Final Report* * * DATE OF EXAM: Oct 15 2024 5:43PM WOX [id number] - XR LUMBAR 3V AP/LAT/L5-S1 / PROCEDURE REASON: Lumbar back pain * * * * Physician Interpretation * * * * EXAM TITLE: XR LUMBAR 3V AP/LAT/L5-S1 EXAM DATE/TIME: 10/15/2024 5:43 PM COMPARISON: None. CLINICAL INDICATION/HISTORY: Back pain. TECHNIQUE: AP, lateral and cone down lateral views of the lumbar spine are presented. FINDINGS: There are five yil-mce-ngokrof lumbar vertebrae. No fracture or subluxations are noted. There appears be L2-3, L3-4 and L5-S1 disc space narrowing. There is moderate osteophyte formation. DIVISION OF RADIOLOGY Provider, Giovanna Benavidez [facility] - 10/15/2024 * * *Final Report* * * DATE OF EXAM: Oct 15 2024 5:43PM WOX [id number] - XR LUMBAR 3V AP/LAT/L5-S1 / PROCEDURE REASON: Lumbar back pain * * * * Physician Interpretation * * * * EXAM TITLE: XR LUMBAR 3V AP/LAT/L5-S1 EXAM DATE/TIME: 10/15/2024 5:43 PM COMPARISON: None. CLINICAL INDICATION/HISTORY: Back pain. TECHNIQUE: AP, lateral and cone down lateral views of the lumbar spine are presented. FINDINGS: There are five rcn-lpn-xuropbo lumbar vertebrae. No fracture or subluxations are noted. There appears be L2-3, L3-4 and L5-S1 disc space narrowing. There is moderate osteophyte formation. IMPRESSION IMPRESSION: Lumbar spine degenerative changes as described above. [employer]: PSCB Transcribe Date/Time: Oct 15 2024 7:09P Dictated by : AUGUST VEGA MD This examination was interpreted and the report reviewed and electronically signed by: AUGUST VEGA MD on Oct 15 2024 7:10PM EST [facility] Radiology Study observation (narrative) [facility] XR Lumbar spine 3 ViewsOrder ed By: [facility] Provider on 10-15-2024 [facility] Anion gap in Serum or Plasma Ordered By: Maria Eugenia Ly on 09-11-2024 Anion gap [Moles/Vol] 11 mmol/L 5-15 [facility] BUN/creatinine ratioOrdered By: Maria Eugenia Ly on 09-11-2024 Urea nitrogen/Creatinine [Mass ratio] 29.9 mg/mg High 10-20 [facility] Bilirubin, totalOrdered By: Maria Eugenia Ly on 09-11-2024 Bilirubin [Mass/Vol] 0.20 mg/dL 0.00-1.30 [facility] Carbon dioxide, total [Moles /volume] in Central venous bloodOrdered By: Maria Eugenia Ly on 09-11-2024 CO2 [Moles/Vol] 24.3 mmol/L 21.0-32.0 [facility] Chloride assayOrdered By: Jw Ly on 09-11-2024 Chloride [Moles/Vol] 102 mmol/L 98-108 [facility] Comprehensive Metabolic Prof ilon 09-11-2024 Albumin [Mass/Vol] 3.9 g/dL Normal 3.4-4.8 [facility] Comment on above: Performed By: #### L 501.9985, [id number] #### [facility] [address] [place], [address] Albumin/Globulin [Mass ratio] 1.1 {ratio} Normal 0.9-2.4 [facility] Comment on above: Performed By: #### L [id number], [id number] #### [facility] [address] [place], [address] ALK PHOS 113 U/L High 35-104 [facility] Comment on above: Performed By: #### L [id number], [id number] #### [facility] [address] [place], [address] ALT [Catalytic activity/Vol] 14 U/L Normal <=34 [facility] Comment on above: Performed By: #### L [id number], [id number] #### [facility] [address] [place], [address] AST [Catalytic activity/Vol] 14 U/L Normal <=31 [facility] Comment on above: Performed By: #### L [id number], [id number] #### [facility] [address] [place], [address] Bilirubin [Mass/Vol] 0.20 mg/dL Normal 0.00-1.30 [facility] Comment on above: Performed By: #### L [id number], [id number] #### [facility] [address] [place], [address] BUN/CRE 29.9 RATIO High 10-20 [facility] Comment on above: Performed By: #### L [id number], [id number] #### [facility] [address] [place], [address] Calcium [Mass/Vol] 9.2 mg/dL Normal 7.6-11.0 [facility] Comment on above: Performed By: #### L [id number], [id number] #### [facility] [address] [place], [address] Chloride [Moles/Vol] 102 mmol/L Normal 98-108 [facility] Comment on above: Performed By: #### L [id number], [id number] #### [facility] [address] [place], [address] CO2 [Moles/Vol] 24.3 mmol/L Normal 21.0-32.0 [facility] Comment on above: Performed By: #### L [id number], [id number] #### [facility] [address] [place], [address] Creatinine [Mass/Vol] 0.68 mg/dL Low 0.70-1.20 [facility] Comment on above: Performed By: #### L [id number], [id number] #### [facility] [address] [place], [address] GAP 11 Normal 5-15 [facility] Comment on above: Performed By: #### L [id number], [id number] #### [facility] [address] [place], [address] GFR/1.73 sq M.predicted among non-blacks MDRD (S/P/Bld) [Vol rate/Area] 93 mL/min/{1.73_m2} Normal >60 [facility] Comment on above: Result Comment: mL/m in/1.73m2 CKD-EPI Creatinine Equation (2020) Performed By: #### L [id number], [id number] #### [facility] [address] [place], [address] Globulin (S) [Mass/Vol] 3.4 g/dL Normal 2.2-4.2 [facility] Comment on above: Performed By: #### L 501.9985, L500.4050 #### [facility] [address] [place], [address] Glucose [Mass/Vol] 182 mg/dL High 70-99 [facility] Comment on above: Performed By: #### L 501.9985, L500.4050 #### [facility] [address] [place], [address] Potassium [Moles/Vol] 4.5 mmol/L Normal 3.3-5.1 [facility] Comment on above: Performed By: #### L 501.9985, L500.4050 #### [facility] [address] [place], [address] Sodium [Moles/Vol] 137 mmol/L Normal 133-145 [facility] Comment on above: Performed By: #### L 501.9985, L500.4050 #### [facility] [address] [place], [address] T PROT 7.3 g/dL Normal 5.9-8.4 [facility] Comment on above: Performed By: #### L 501.9985, L500.4050 #### [facility] [address] [place], [place], [id number] Urea nitrogen [Mass/Vol] 20 mg/dL High 4-19 [facility] Comment on above: Performed By: #### L 501.9985, L500.4050 #### [facility] [address] [place], [place], [address] Glomerular filtration rate ( GFR) estimation/1.73 sq m using serum, plasma, or whole bOrdered By: Maria Eugenia Ly on 09-11-2024 GFR/1.73 sq M.predicted among non-blacks MDRD (S/P/Bld) [Vol rate/Area] 93 mL/min/{1.73_m2} >60 [facility] Comment on above: mL/min/1.73m2 CKD-EP I Creatinine Equation (2020) Hemoglobin A1con 09-11-2024 HbA1c (Bld) [Mass fraction] 7.3 % High <=5.6 [facility] Comment on above: Result Comment: Norm al < 5.7 % Prediabetic 5.7 - 6.4 % Diabetic >or= 6.5 % Please note range changes. Performed By: #### L 501.9985, L500.4050 #### [facility] [address] [place], [place], [id number] Hemoglobin A1c percentageOrd ered By: Maria Eugenia Ly on 09-11-2024 HbA1c (Bld) [Mass fraction] 7.3 % High <5.7 [facility] Comment on above: Normal < 5.7 % Predi abetic 5.7 - 6.4 % Diabetic >or= 6.5 % Please note range changes. Laboratory - Chemistry and C hemistry - challengeOrdered By: Maria Eugenia Ly on 09-11-2024 AST [Catalytic activity/Vol] 14 U/L <32 [facility] Potassium measurement (mass/ volume)Ordered By: Maria Eugenia Ly on 05-06-2025 Potassium (Unsp spec) [Mass/Vol] 4.5 mmol/L 3.3-5.1 [facility] Serum creatinine measurement (mass/volume)Ordered By: Maria Eugenia Ly on 09-11-2024 Creatinine [Mass/Vol] 0.68 mg/dL Low 0.70-1.20 [facility] Serum globulin measurementOr dered By: Maria Eugenia Ly on 09-11-2024 Globulin (S) [Mass/Vol] 3.4 g/dL 2.2-4.2 [facility] Serum glucose measurement (m ass/volume)Ordered By: Maria Eugenia Ly on 09-11-2024 Glucose [Mass/Vol] 182 mg/dL High 70-99 [facility] Serum or plasma alanine xie otransferase (ALT) measurementOrdered By: Maria Eugenia Ly on 09-11-2024 ALT [Catalytic activity/Vol] 14 U/L <35 [facility] Serum or plasma albumin kayley urement (mass/volume)Ordered By: Maria Eugenia Ly on 09-11-2024 Albumin [Mass/Vol] 3.9 g/dL 3.4-4.8 [facility] Serum or plasma albumin/glob ulin mass ratioOrdered By: Maria Eugenia Ly on 09-11-2024 Albumin/Globulin [Mass ratio] 1.1 {ratio} 0.9-2.4 [facility] Serum or plasma alkaline merna sphatase measurementOrdered By: Maria Eugenia Ly on 09-11-2024 ALP [Catalytic activity/Vol] 113 U/L High 35-104 [facility] Serum or plasma calcium kayley urement (mass/volume)Ordered By: Maria Eugenia Ly on 09-11-2024 Calcium [Mass/Vol] 9.2 mg/dL 7.6-11.0 [facility] Serum or plasma urea nitroge n measurement (mass/volume)Ordered By: Maria Eugenia Ly on 09-11-2024 Urea nitrogen [Mass/Vol] 20 mg/dL High 4-19 [facility] Sodium levelOrdered By: Zaria Ly on 09-11-2024 Sodium [Moles/Vol] 137 mmol/L 133-145 [facility] Total proteinOrdered By: Lis Ly on 09-11-2024 Protein [Mass/Vol] 7.3 g/dL 5.9-8.4 [facility] CBC-Complete Blood Cnt No Di ffon 03-01-2024 Erythrocyte distribution width (RBC) [Ratio] 13.1 % Normal 11.6-14.6 [facility] Comment on above: Performed By: #### L 100.0500, L501.9985, L500.4050, L501.9520 #### [facility] [address] [place], [address] Hematocrit (Bld) [Volume fraction] 38.5 % Normal 37-47 [facility] Comment on above: Performed By: #### L 100.0500, L501.9985, L500.4050, L501.9520 #### [facility] [address] [place], [address] Hemoglobin (Bld) [Mass/Vol] 12.3 g/dL Normal 12.0-15.0 [facility] Comment on above: Performed By: #### L 100.0500, L501.9985, L500.4050, L501.9520 #### [facility] [address] [place], [address] MCH (RBC) [Entitic mass] 29.1 pg Normal 27.0-32.0 [facility] Comment on above: Performed By: #### L 100.0500, L501.9985, L500.4050, L501.9520 #### [facility] [address] [place], [address] MCHC (RBC) [Mass/Vol] 31.9 g/dL Low 32-36 [facility] Comment on above: Performed By: #### L 100.0500, L501.9985, L500.4050, L501.9520 #### [facility] [address] [place], [address] MCV (RBC) [Entitic vol] 91.0 fL Normal 81-99 [facility] Comment on above: Performed By: #### L 100.0500, L501.9985, L500.4050, L501.9520 #### [facility] [address] [place], [address] Platelet mean volume (Bld) [Entitic vol] 8.5 fL Normal 6.2-12.0 [facility] Comment on above: Performed By: #### L 100.0500, L501.9985, L500.4050, L501.9520 #### [facility] [address] [place], [address] Platelets (Bld) [#/Vol] 477 10*3/uL High 150-450 [facility] Comment on above: Performed By: #### L 100.0500, L501.9985, L500.4050, L501.9520 #### [facility] [address] [place], [address] RBC (Bld) [#/Vol] 4.23 10*6/uL Normal 4.2-5.4 [facility] Comment on above: Performed By: #### L 100.0500, L501.9985, L500.4050, L501.9520 #### [facility] [address] [place], [address] RDW SD 43.8 fl Normal 35.1-43.9 [facility] Comment on above: Performed By: #### L 100.0500, L501.9985, L500.4050, L501.9520 #### [facility] [address] [place], [address] WBC (Bld) [#/Vol] 8.8 10*3/uL Normal 4.4-11.0 [facility] Comment on above: Performed By: #### L 100.0500, L501.9985, L500.4050, L501.9520 #### [facility] [address] [place], [address] Comprehensive Metabolic [facility] ilon 03-01-2024 Albumin [Mass/Vol] 3.3 g/dL Normal 3.2-5.0 [facility] Comment on above: Performed By: #### L 100.0500, L501.9985, L500.4050, L501.9520 #### [facility] [address] [place], [address] Albumin/Globulin [Mass ratio] 0.8 {ratio} Low 0.9-2.4 [facility] Comment on above: Performed By: #### L 100.0500, L501.9985, L500.4050, L501.9520 #### [facility] [address] [place], [address] ALK P 121 U/L High 45-117 [facility] Comment on above: Performed By: #### L 100.0500, L501.9985, L500.4050, L501.9520 #### [facility] [address] [place], [address] ALT [Catalytic activity/Vol] 19 U/L Normal 13-56 [facility] Comment on above: Performed By: #### L 100.0500, L501.9985, L500.4050, L501.9520 #### [facility] [address] [place], [address] AST [Catalytic activity/Vol] 13 U/L Low 15-37 [facility] Comment on above: Performed By: #### L 100.0500, L501.9985, L500.4050, L501.9520 #### [facility] [address] [place], [address] Bilirubin [Mass/Vol] 0.40 mg/dL Normal 0.20-1.00 [facility] Comment on above: Result Comment: For patients on eltrombopag therapy, use of Dimension [place] TBIL is not recommended. Performed By: #### L 100.0500, L501.9985, L500.4050, L501.9520 #### [facility] [address] [place], [address] BUN/CRE 21.9 RATIO High 10-20 [facility] Comment on above: Performed By: #### L 100.0500, L501.9985, L500.4050, L501.9520 #### [facility] [address] [place], [address] CA,Total 8.9 mg/dL Normal 8.5-10.1 [facility] Comment on above: Performed By: #### L 100.0500, L501.9985, L500.4050, L501.9520 #### [facility] [address] [place], [address] Chloride [Moles/Vol] 108 mmol/L High 98-107 [facility] Comment on above: Performed By: #### L 100.0500, L501.9985, L500.4050, L501.9520 #### [facility] [address] [place], [address] CO2 [Moles/Vol] 25.0 mmol/L Normal 21.0-32.0 [facility] Comment on above: Performed By: #### L 100.0500, L501.9985, L500.4050, L501.9520 #### [facility] [address] [place], [address] Creatinine [Mass/Vol] 0.73 mg/dL Normal 0.55-1.02 [facility] Comment on above: Result Comment: The validity of the calculated GFR GFRAA in patients over 70 years has not been determined. Clinical correlation is essential. Performed By: #### L 100.0500, L501.9985, L500.4050, L501.9520 #### [facility] [address] [place], [address] EST GFR - AA 101 mL/min Normal >60 [facility] Comment on above: Result Comment: Afri can Swazi GFR Calc Performed By: #### L 100.0500, L501.9985, L500.4050, L501.9520 #### [facility] [address] [place], [address] GAP 6 Normal 5-15 [facility] Comment on above: Performed By: #### L 100.0500, L501.9985, L500.4050, L501.9520 #### [facility] [address] [place], [address] GFR/1.73 sq M.predicted among non-blacks MDRD (S/P/Bld) [Vol rate/Area] 83 mL/min/{1.73_m2} Normal >60 [facility] Comment on above: Result Comment: Non- GFR Calc Performed By: #### L 100.0500, L501.9985, L500.4050, L501.9520 #### [facility] [address] [place], [address] Globulin (S) [Mass/Vol] 4.1 g/dL Normal 2.2-4.2 [facility] Comment on above: Performed By: #### L 100.0500, L501.9985, L500.4050, L501.9520 #### [facility] [address] [place], [address] Glucose [Mass/Vol] 178 mg/dL High 74-106 [facility] Comment on above: Result Comment: Fast ing Glucose result greater than or equal to 126 mg/dL suggests DIABETES MELLITUS per A.D.A. criteria. Performed By: #### L 100.0500, L501.9985, L500.4050, L501.9520 #### [facility] [address] [place], [address] Potassium [Moles/Vol] 4.2 mmol/L Normal 3.5-5.1 [facility] Comment on above: Performed By: #### L 100.0500, L501.9985, L500.4050, L501.9520 #### [facility] [address] [place], [address] Sodium [Moles/Vol] 139 mmol/L Normal 136-145 [facility] Comment on above: Performed By: #### L 100.0500, L501.9985, L500.4050, L501.9520 #### [facility] [address] [place], [address] T PROT 7.4 g/dL Normal 6.4-8.2 [facility] Comment on above: Performed By: #### L 100.0500, L501.9985, L500.4050, L501.9520 #### [facility] [address] [place], [address] Urea nitrogen [Mass/Vol] 16 mg/dL Normal 7-18 [facility] Comment on above: Performed By: #### L 100.0500, L501.9985, L500.4050, L501.9520 #### [facility] [address] [place], [address] Hemoglobin A1con 03-01-2024 HbA1c (Bld) [Mass fraction] 6.7 % High 3.8-5.6 [facility] Comment on above: Result Comment: Norm al < 5.7 % Prediabetic 5.7 - 6.4 % Diabetic >or= 6.5 % Please note range changes. Performed By: #### L 100.0500, L501.9985, L500.4050, L501.9520 #### [facility] [address] [place], [address] Thyroid Stim Hormone (TSH)on 03-01-2024 TSH 4.000 uIU/mL High 0.358-3.740 [facility] Comment on above: Performed By: #### L 100.0500, L501.9966, L500.4050, L501.9529 #### [facility] [address] [place], [address] BI MAMMO BILATERAL SCREENING TOMOSYNTHESISon 2023 BI MAMMO BILATERAL SCREENING TOMOSYNTHESIS Interpreted By: Faheem Iyer, STUDY: BI MAMMO BILATERAL SCREENING TOMOSYNTHESIS; 2023 2:05 pm ACCESSION NUMBER(S): [id number] ORDERING CLINICIAN: ARGENIS GARCIA INDICATION: Screening COMPARISON: 03/14/2020, 2022 FINDINGS: CC and MLO 2D digital mammograms and digital breast tomosynthesis images were obtained of the bilateral breasts. 3-D volume images were reconstructed in 4 views at an independent workstation as 1 mm slices through the breasts in both the CC and MLO projections. Density: There are areas of scattered fibroglandular tissue. No discrete mass or focal asymmetry is identified. No suspicious microcalcifications or foci of architectural distortion are seen. There has been no significant change. This study was interpreted with CAD. IMPRESSION: No mammographic evidence of malignancy. BI-RADS CATEGORY: BI-RADS Category: 1 Negative. Recommendation: Routine Screening Mammogram in 1 Year. Recommended Date: 1 Year. Laterality: Bilateral. MACRO: None Signed by: Faheem Iyer 2023 3:48 PM Dictation workstation: [id number] [facility] Comment on above: Order Comment: Rad S elected: Y Absolute lymphocyte countOrd ered By: Barb Perrin on 12-29-2022 Lymphocytes Auto (Unsp spec) [#/Vol] 3.65 10*3/uL 0.83-4.51 [facility] Basophil percentageOrdered B y: Barb Perrin on 12-29-2022 Basophils/100 WBC (Bld) 0.6 % 0-1 [facility] Chloride [Moles/Vol] 104 mmol/L 98-107 [facility] Eosinophils/100 WBC (Bld) 1.8 % 0-5 [facility] Glucose [Mass/Vol] 110 mg/dL 74-106 [facility] Comment on above: Fasting Glucose resu lt from 100 to 125 mg/dL suggests IMPAIRED HOMEOSTASIS per A.D.A. criteria. Neutrophils (Bld) [#/Vol] 8.7 10*3/uL 2.0-7.7 [facility] Neutrophils/100 WBC (Bld) 62.4 % 47-70 [facility] Potassium [Moles/Vol] 4.1 mmol/L 3.5-5.1 [facility] Sodium [Moles/Vol] 139 mmol/L 136-145 [facility] WBC (Bld) [#/Vol] 13.9 10*3/uL 4.4-11.0 [facility] Blood erythrocytes count (nu mber/volume)Ordered By: Barb Perrin on 12-29-2022 RBC (Bld) [#/Vol] 4.12 10*6/uL 4.2-5.4 [facility] Blood hemoglobin measurement (mass/volume)Ordered By: Barb Perrin on 12-29-2022 Hemoglobin (Bld) [Mass/Vol] 12.5 g/dL 12.0-15.0 [facility] Blood lymphocytes/100 leukoc ytesOrdered By: Barb Perrin on 12-29-2022 Lymphocytes/100 WBC (Bld) 26.3 % 19-41 [facility] Blood monocytes/100 leukocyt esOrdered By: Barb Perrin on 12-29-2022 Monocytes/100 WBC (Bld) 8.6 % 0-10 [facility] Blood platelet mean volumeOr dered By: Barb Perrin on 12-29-2022 Platelet mean volume (Bld) [Entitic vol] 8.3 fL 6.2-12.0 [facility] Determination of erythrocyte mean corpuscular volume (MCV)Ordered By: Barb Perrin on 12-29-2022 MCV (RBC) [Entitic vol] 90.3 fL 81-99 [facility] Hematocrit Auto (Bld) [Volum e fraction]Ordered By: Barb Perrin on 12-29-2022 Hematocrit (Bld) [Volume fraction] 37.2 % 37-47 [facility] - Chemistry and C hemistry - challengeOrdered By: Barb Perrin on 12-29-2022 CO2 [Moles/Vol] 31.0 mmol/L 21.0-32.0 [facility] Urea nitrogen/Creatinine [Mass ratio] 15.7 mg/mg 10-20 [facility] - Hematology and Cell countsOrdered By: Barb Perrin on 12-29-2022 Erythrocyte distribution width (RBC) [Entitic vol] 43.3 fL 35.1-43.9 [facility] Erythrocyte distribution width (RBC) [Ratio] 13.1 % 11.6-14.6 [facility] Immature granulocytes/100 WBC (Bld) 0.300 % 0.0-0.9 [facility] Comment on above: IG% - Immature Granu locytes (promyelocytes, myelocytes and metamyelocytes) > 1% indicates that a LEFT SHIFT is Present. MCH (RBC) [Entitic mass] 30.3 pg 27.0-32.0 [facility] Nucleated RBC/100 WBC (Bld) [Ratio] 0 % 0-5 [facility] MCHC Auto (RBC) [Mass/Vol]Or dered By: Barb Perrin on 12-29-2022 MCHC (RBC) [Mass/Vol] 33.6 g/dL 32-36 [facility] No Panel InformationOrdered By: Barb Perrin on 12-29-2022 Troponin I High Sensitivity 8 pg/mL 3.0-54.0 [facility] Comment on above: Please Note: [place] t Units and Gender Specific Reference Ranges. For more information see Policy Stat Procedure [place] High Sensitivity Troponin (TNIH) and attachments. Estimated Creatinine Clearance Calc 53.68 ml/min [facility] Estimated GFR (MDRD) Amer 81 mL/min >60 [facility] Comment on above: GFR Calc Estimated GFR (MDRD) Non-Af Amer 67 mL/min >60 [facility] Comment on above: Non- GFR Calc Platelets bldOrdered By: Angela Perrin on 12-29-2022 Platelets (Bld) [#/Vol] 445 10*3/uL 150-450 [facility] Serum or plasma calcium kayley urement (mass/volume)Ordered By: Brab Perrin on 12-29-2022 Calcium [Mass/Vol] 9.3 mg/dL 8.5-10.1 [facility] Serum or plasma creatinine m easurement (mass/volume)Ordered By: Barb Perrin on 12-29-2022 Creatinine [Mass/Vol] 0.89 mg/dL 0.55-1.02 [facility] Comment on above: The validity of the calculated GFR & GFRAA in patients over 70 years has not been determined. Clinical correlation is essential. Serum or plasma urea nitroge n measurement (mass/volume)Ordered By: Barb Perrin on 12-29-2022 Urea nitrogen [Mass/Vol] 14 mg/dL 7-18 [facility] Thin prep Papanicolaou smear with manual screeningOrdered By: Barb Perrin on 12-29-2022 Thin prep Papanicolaou smear with manual screening 4 5-15 [facility] GC + CHLAMYDIA BY AMPLIFIED DETECTIONon 09-07-2022 CHLAMYDIA TRACH.,AMPLIFIED Negative Normal Negative [facility] Comment on above: Result Comment: The APTIMA Combo 2 assay is FDA-approved for Chlamydia trachomatis and Neisseria gonorrhoeae testing on female endocervical and vaginal swabs, ThinPrep liquid pap samples, male urine samples and urethral swabs. Performance characteristics for Chlamydia trachomatis and Neisseria gonorrhoeae testing on specific [id number] sample types (female urine samples) have been validated by [facility]. This laboratory is certified by CLIA to perform high complexity testing. Samples from all other sites are not validated for this method. Performed By: #### [facility] #### [facility] [address] [place] [address] N.GONORRHEA,AMPLIFIE D Negative Normal Negative [facility] Comment on above: Result Comment: The APTIMA Combo 2 assay is FDA-approved for Chlamydia trachomatis and Neisseria gonorrhoeae testing on female endocervical and vaginal swabs, ThinPrep liquid pap samples, male urine samples and urethral swabs. Performance characteristics for Chlamydia trachomatis and Neisseria gonorrhoeae testing on specific xah-VPW-rjhhculd sample types (female urine samples) have been validated by [facility]. This laboratory is certified by CLIA to perform high complexity testing. Samples from all other sites are not validated for this method. Performed By: #### [facility] #### [facility] [address] [place] [address] HIV 1/2 ANTIGEN/ANTIBODY SCR EEN WITH REFLEX TO CONFIRMATIONon 09-07-2022 HIV 1/2 AG/AB SCREEN Non-Reactive Normal NONREACTIVE [facility] Comment on above: Result Comment: HIV Ag/Ab screen is performed using the [employer] HIV Ag/Ab Combo assay which detects the presence of HIV p24 antigen as well as antibodies to HIV-1 (Group M and O) and HIV-2. . No laboratory evidence of HIV infection. If acute HIV infection is suspected, consider testing for HIV RNA by PCR (viral load). Performed By: #### H IV #### [facility] [address] [place] [address] SYPHILIS SCREENING WITH REFL EXon 09-07-2022 SYPHILIS TOTAL AB Non-Reactive Normal NONREACTIVE [facility] Comment on above: Result Comment: No s erologic evidence of syphilis infection. If recent exposure is suspected, repeat syphilis testing is recommended in 2 to 4 weeks. Performed By: #### S YPHR #### [facility] [address] [place] [address] GC + CHLAMYDIA BY AMPLIFIED DETECTIONon 09-06-2022 Lab Specimen Source Urine Normal [facility] Comment on above: Performed By: #### [facility] #### [facility] [address] [place] [address] GC + Chlamydia By Amplified Detectionon 09-06-2022 C. trachomatis rRNA FABY+probe Ql (Unsp spec) Negative Negative [facility] [address] [employer] Work Phone: Comment on above: The APTIMA Combo 2 a ssay is FDA-approved for Chlamydia trachomatis and Neisseria gonorrhoeae testing on female endocervical and vaginal swabs, ThinPrep liquid pap samples, male urine samples and urethral swabs. Performance characteristics for Chlamydia trachomatis and Neisseria gonorrhoeae testing on specific yoi-BNT-mrktakdn sample types (female urine samples) have been validated by [facility]. This laboratory is certified by CLIA to perform high complexity testing. Samples from all other sites are not validated for this method. N. gonorrhoeae rRNA FABY+probe Ql (Unsp spec) Negative Negative [facility] [address] Work Phone: Comment on above: SOURCE: Urine The AP JESSE Combo 2 assay is FDA-approved for Chlamydia trachomatis and Neisseria gonorrhoeae testing on female endocervical and vaginal swabs, ThinPrep liquid pap samples, male urine samples and urethral swabs. Performance characteristics for Chlamydia trachomatis and Neisseria gonorrhoeae testing on specific djx-XSQ-tnszoied sample types (female urine samples) have been validated by [facility]. This laboratory is certified by CLIA to perform high complexity testing. Samples from all other sites are not validated for this method. HIV 1/2 ANTIGEN/ANTIBODY SCR EEN WITH REFLEX TO CONFIRMATIONon 09-06-2022 Lab Specimen Source Normal [facility] Comment on above: Performed By: #### H IV #### [facility] [id number] [place] [address] HIV 1+2 Ab Qn (S) Non-Reactive See Below [facility] [address] Work Phone: Comment on above: SOURCE: Reference Ra nge: NONREACTIVE HIV Ag/Ab screen is performed using the Siemens JourneysllPro Player Connect HIV Ag/Ab Combo assay which detects the presence of HIV p24 antigen as well as antibodies to HIV-1 (Group M and O) and HIV-2..No laboratory evidence of HIV infection. If acute HIV infection is suspected, consider testing for HIV RNA by PCR (viral load). Laboratory - Cytologyon Cytology report Cyto stain.thin prep Doc (Cvx/Vag) 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 : Annual Screening Mammogram HIV 1/2 ANTIGEN/ANTIBODY SCREEN WITH REFLEX TO CONFIRMATION; Status:Active; Requested for:06Sep2022; SYPHILIS SCREENING WITH REFLEX; Status:Active; Requested for:06Sep2022; Provider Impressions 1. Annual 2. Screening mammogram 3. Screen for STD Will obtain GC, chlamydia, HIV and syphilis testing. Patient will be called with the results. Follow-up in 2 years or as needed. Chief Complaint Patient is here for her yearly exam and pap test. Menopause in 2008. Patient does self breast exams and has no concerns at this time. Patient would like screened for STD's today. History of Present IllnessPresents for annual exam. She voices no complaints and is doing well. Denies any bowel or bladder problems. Denies any breast problems. Denies any postmenopausal bleeding. She desires screening for STD. Review of Systems Review of Systems: Constitutional: No fever or chills Respiratory: No shortness of breath, or cough Cardiovascular: No chest pain or syncope Breasts: No breast pain, no masses, no nipple discharge Gastrointestinal: No nausea, vomiting, or diarrhea, no abdominal pain Genitourinary: No dysuria or frequency Gynecology: Negative except as noted in history of present illness All other: All other systems reviewed and negative for complaint Active Problems Problems Acquired hypothyroidism (244.9) (E03.9) Acute pain of right shoulder (719.41) (M25.511) Anxiety (300.00) (F41.9) Benign essential HTN (401.1) (I10) Diabetes (250.00) (E11.9) Diabetes Dysuria (788.1) (R30.0) Encounter for immunization (V03.89) (Z23) Encounter for Papanicolaou smear of cervix (V76.2) (Z12.4) Encounter for screening mammogram for malignant neoplasm of breast (V76.12) (Z12.31) Hyperlipemia, mixed (272.2) (E78.2) Left shoulder pain (719.41) (M25.512) Medicare annual wellness visit, subsequent (V70.0) (Z00.00) Menopause (627.2) (Z78.0) Screening breast examination (V76.10) (Z12.39) Screening for colon cancer (V76.51) (Z12.11) Women's annual routine gynecological examination (V72.31) (Z01.419) Past Medical History Problems History of Delivery of by section (669.70) (O82) 02/21/1975; C/S; MALE; 6LBS 5OZ 06/30/1976; C/S; FEMALE; 5LBS 7OZ 08/02/1983; C/S; MALE; 7LBS 08/31/1985; C/S; FEMALE; 9LBS History of mammogram (V15.89) (Z92.89) 2022 History of Menstruation AGE 9 Surgical History Problems History of Appendectomy History of section History of Colonoscopy thomae, 10 years History of Sinus surgery History of Tubal ligation Family History Mother Family history of cerebrovascular accident (CVA) (V17.1) (Z82.3) Family history of hypertension (V17.49) (Z82.49) Father Family history of cerebrovascular accident (CVA) (V17.1) (Z82.3) Family history of hypertension (V17.49) (Z82.49) Child Family history of Cancer of unknown origin Grandparent Family history of diabetes mellitus (V18.0) (Z83.3) Family history of hypertension (V17.49) (Z82.49) Social History Problems Consumes alcohol occasionally (V49.89) (Z78.9) Current every day smoker (305.1) (F17.200) Never chewed tobacco (V49.89) (Z78.9) No advance directives (V49.89) (Z78.9) Not currently sexually active Allergies Medication No Known Drug Allergies Recorded By: Jaqueline Aguila; 03/26/2019 9:11:22 AM Current Meds Medication NameInstruction Amitriptyline HCl - 25 MG Oral TabletTAKE 1 TABLET AT BEDTIME. Aspirin 81 MG TABSTAKE 1 TABLET DAILY. Escitalopram Oxalate 20 MG Oral TabletTAKE 1 TABLET DAILY. Levothyroxine Sodium 75 MCG Oral TabletTAKE 1 TABLET DAILY. Losartan Potassium 25 MG Oral TabletTAKE 1 TABLET DAILY. metFORMIN HCl ER 500 MG Oral Tablet Extended Release 24 HourTAKE 2 TABLET Daily Pravastatin Sodium 20 MG Oral TabletTAKE 1 TABLET DAILY. Vitals Vital Signs Recorded: 06Sep2022 01:44PM Fafpwedg520 Oarayspiv27 Height5 ft 5 in Xfxagm43.2 kg BMI Vcfcpsjzxj06.75 kg/m2 BSA Calculated1.77 Tobacco Useb) No PHQ-2 #1. Over the last 2 weeks have you felt down, depressed or hopeless? (If yes, answer PHQ-9 below)No PHQ-2 #2. Over the last 2 weeks have you felt little interest or pleasure in doing (more content not included)... Normal [employer] SYPHILIS SCREENING WITH REFL EXon 09-06-2022 T. pallidum IgG+IgM IA Ql (S) Non-Reactive See Below [facility] [employer] Phone: [phone] Comment on above: Reference Range: NON REACTIVENo serologic evidence of syphilis infection.If recent exposure is suspected, repeat syphilis testingis recommended in 2 to 4 weeks. Tobacco Screening.on 023 Adult depression screening assessment No [facility] [employer] Phone: [phone] Fall risk assessment a) No falls within the last year [facility] [employer] Phone: [phone] Last menstrual period start date Mwnopause 2008 [facility] Phone: [phone] Tobacco use status CPHS b) No [facility] [employer] Phone: [phone] UA DIP, URINE (POC)on 2022 BILIRUBIN UA (POCT) Negative Negative [facility] CLARITY UA (POCT) Clear [facility] COLOR UA (POCT) Yellow [facility] GLUCOSE UA (POCT) Negative Negative mg/dL [facility] HEMOGLOBIN/BLOOD UA (POCT) Small Abnormal Negative [facility] KETONE UA (POCT) Negative Negative mg/dL [facility] LEUKOCYTES UA (POCT) Small Abnormal Negative [facility] NITRITE [facility] (POCT) Negative Negative [facility] PH UA (POCT) 6.0 4.5 - 8.0 [facility] Protein Ql (U) Negative Negative mg/dL [facility] SPECIFIC GRAVITY UA (POCT) <=1.005 Abnormal 1.005 - 1.030 [facility] UROBILINOGEN UA (POCT) 0.2 E.U./dL Normal E.U./dL [facility] Cult, Urineon 08-18-2022 Bacteria identified Cx Nom (U) [facility] [address] [employer] Work Phone: [phone] IO UA (automated w/o microsc opy)on 08-18-2022 Protein (U) [Mass/Vol] Negative [facility] [address] [employer] Work Phone: [phone] IO UA (automated w/o microscopy) Trace Abnormal [facility] [address] [employer] Work Phone: [phone] IO UA (automated w/o microscopy) Negative [facility] [address] [employer] Work Phone: [phone] IO UA (automated w/o microscopy) Normal (0.2-1.0 mg/dl) [facility] [address] [employer] Work Phone: [phone] IO UA (automated w/o microscopy) 5.5 1 [facility] [address] [employer] Work Phone: [phone] IO UA (automated w/o microscopy) 1.005 1 [facility] [address] [employer] Work Phone: [phone] IO UA (automated w/o microscopy) 250 mg/dl Abnormal [facility] [address] [employer] Work Phone: [phone] IO UA (automated w/o microscopy) Clear [facility] [address] [employer] Work Phone: [phone] IO UA (automated w/o microscopy) Yellow [facility] [address] [employer] Work Phone: [phone] LMPon 08-18-2022 Last menstrual period start date ZELDA [facility] [address] [employer] Work 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 Dysuria Urinalysis shows trace blood and leukocytes. Negative for nitrites. Will send urine for culture. If the urine culture is negative recommend she see a urologist for evaluation of hematuria. Follow-up in several weeks for annual exam. Chief Complaint PT HERE TODAY WITH CONCERNS OF A POSSIBLE UTI. PT STATES SHE HAS HAD SOME BACK PAIN, AND LOWER ABDOMINAL PRESSURE. PT STATES THE SYMPTOMS HAVE BEEN GOING ON SINCE LAST WEEK. PT ALSO STATES SHE HAS BEEN DRINKING CRANBERRY JUICE TO HELP WITH URINATION. PT STATES WHEN SHE URINATES THERE IS A TINGLING SENSATION. PT DENIES ANY BURNING, AND FREQUENCY OF URINATION. History of Present IllnessPresents stating that for the last week she has concerns for possible bladder infection. She initially had some back pain and lower abdominal pressure and a tingling sensation when she urinated. The back pain has resolved and the cranberry juice that she has been drinking recently has to help with her urinary symptoms. She states she still has some suprapubic type pressure. Denies any bowel problems. Denies any vaginal bleeding. Denies any urinary frequency or burning. Review of Systems Review of Systems: Constitutional: No fever or chills Respiratory: No shortness of breath, or cough Cardiovascular: No chest pain or syncope Breasts: No breast pain, no masses, no nipple discharge Gastrointestinal: No nausea, vomiting, or diarrhea, no abdominal pain Genitourinary: No dysuria or frequency Gynecology: Negative except as noted in history of present illness All other: All other systems reviewed and negative for complaint Active Problems Problems Acquired hypothyroidism (244.9) (E03.9) Acute pain of right shoulder (719.41) (M25.511) Anxiety (300.00) (F41.9) Benign essential HTN (401.1) (I10) Diabetes (250.00) (E11.9) Diabetes Encounter for immunization (V03.89) (Z23) Encounter for screening mammogram for malignant neoplasm of breast (V76.12) (Z12.31) Hyperlipemia, mixed (272.2) (E78.2) Left shoulder pain (719.41) (M25.512) Medicare annual wellness visit, subsequent (V70.0) (Z00.00) Menopause (627.2) (Z78.0) Screening breast examination (V76.10) (Z12.39) Screening for colon cancer (V76.51) (Z12.11) Past Medical History Problems History of mammogram (V15.89) (Z92.89) Surgical History Problems History of Appendectomy History of section History of Colonoscopy thomae, 10 years History of Sinus surgery History of Tubal ligation Family History Mother Family history of cerebrovascular accident (CVA) (V17.1) (Z82.3) Family history of hypertension (V17.49) (Z82.49) Father Family history of cerebrovascular accident (CVA) (V17.1) (Z82.3) Family history of hypertension (V17.49) (Z82.49) Child Family history of Cancer of unknown origin Grandparent Family history of diabetes mellitus (V18.0) (Z83.3) Family history of hypertension (V17.49) (Z82.49) Social History Problems Consumes alcohol occasionally (V49.89) (Z78.9) Former smoker (V15.82) (Z87.891) Never chewed tobacco (V49.89) (Z78.9) No advance directives (V49.89) (Z78.9) Allergies Medication No Known Drug Allergies Recorded By: Jaqueline Aguila; 03/26/2019 9:11:22 AM Current Meds Medication NameInstruction Amitriptyline HCl - 25 MG Oral TabletTAKE 1 TABLET AT BEDTIME. Aspirin 81 MG TABSTAKE 1 TABLET DAILY. Escitalopram Oxalate 20 MG Oral TabletTAKE 1 TABLET DAILY. Levothyroxine Sodium 75 MCG Oral TabletTAKE 1 TABLET DAILY. Losartan Potassium 25 MG Oral TabletTAKE 1 TABLET DAILY. metFORMIN HCl ER 500 MG Oral Tablet Extended Release 24 HourTAKE 2 TABLET Daily Pravastatin Sodium 20 MG Oral TabletTAKE 1 TABLET DAILY. Vitals Vital Signs Recorded: 18Aug2022 09:35AM Roeopnor178 Xblrqjgan65 Height5 ft 5 in Epqrtr39.08 kg BMI Rxzoemxofo69.71 kg/m2 BSA Calculated1.77 LMPMENO Physical Exam PHYSICAL EXAMINATION: Well-developed, well nourished, in no acute distress, alert and oriented x three, is pleasant and cooperative. HEENT: Clear. Pupils equal, round and reactive to light and accommodation. Extraocular muscles are intact. Oral mucosa pink without exudate. NECK: No lymphadenopathy, no thyromegaly. LUNGS: Clear bilaterally. HEART: Regular rate and rhythm without murmurs. ABDOMEN: Normoactive bowel sounds, soft and nontender, no guarding or rebound tenderness, no CVA tenderness. EXTREMITIES: No clubbing, cyanosis or edema. NEUROLOGIC: Cranial nerves II-XII grossly intact. Results/Data IO UA (automated w/o microscopy)18Aug2022 09:38Argenis Velasquez [facility] STATUS Test NameResultFlagReference IO ColorYellow IO AppearanceClear IO Glucose - Mljfx445 mg/dlA IO BilirubinNegative IO KetonesNegative IO Specific Gr (more content not included)... Normal [employer] URINE CULTURE,BACTERIALon URINE CULTURE,BACTERIAL PATIENT: PORTIA RICKS LOCATION: [address]#: [id number] : 51 AGE: SEX: F ORDERED BY: ARGENIS GARCIA SOURCE: URINE COLLECTED: 08/18/22 09:42 ANTIBIOTICS AT POPPY.: RECEIVED : 08/18/22 17:15 SITE: Clean Catch/Voided R E S U L T S URINE CULTURE,BACTERIAL FINAL 08/19/22 10:19 NO SIGNIFICANT GROWTH. Normal [facility] Comment on above: Performed By: #### U [facility] #### [facility] [address] [place] [address] DIGITAL MAMM SCREENING W/ TO López 2022 DIGITAL MAMM SCREENING W/ SHUBHAM Patient Name: PORTIA RICKS STUDY: Digital mammography screening with shubham; 2022 2:51 pm ACCESSION NUMBER(S): [id number] ORDERING CLINICIAN: MARIA EUGENIA LY INDICATION: Screening. COMPARISON: Comparison is made to prior digital mammograms dated 03/14/2020 FINDINGS: CC and MLO 2D digital mammograms and digital breast tomosynthesis images were obtained of the bilateral breasts. 3-D volume images were reconstructed in 4 views at an independent workstation as 1 mm slices through the breasts in both the CC and MLO projections. There are areas of scattered fibroglandular tissue. No discrete mass or focal asymmetry is identified. No suspicious microcalcifications or foci of architectural distortion are seen. There has been no significant change. This study was interpreted with CAD. IMPRESSION: No mammographic evidence of malignancy. BI-RADS CATEGORY: Category: 1 - Negative. Recommendation: 1 Year Screening. Electronically signed by: CADEN VEGA MD Normal [facility] Mamm - Screening Mammogram w / Tomosynthesison 2022 MG Breast Screening Normal -[facility] Work Phone: Basophil percentageon 2021 Bilirubin [Mass/Vol] 0.30 mg/dL 0.20-1.00 [facility] Work Phone: Comment on above: For patients on eltr ombopag therapy, use of Dimension [place] TBIL is not recommended. Chloride [Moles/Vol] 106 mmol/L 98-107 [facility] Work Phone: Cholesterol [Mass/Vol] 148 mg/dL <200 [facility] Work Phone: Comment on above: <200 mg/dL Desirable 200-240 mg/dL Borderline >240 mg/dL High Risk Glucose [Mass/Vol] 202 mg/dL 74-106 [facility] Work Phone: Comment on above: Glucose result great er than or equal to 200 mg/dLsuggests DIABETES MELLITUS per A.D.A. criteria. Potassium [Moles/Vol] 4.1 mmol/L 3.5-5.1 [facility] Work Phone: Protein [Mass/Vol] 7.6 g/dL 6.4-8.2 [facility] Work Phone: [phone] Sodium [Moles/Vol] 138 mmol/L 136-145 [facility] Work Phone: [phone] Triglyceride [Mass/Vol] 140 mg/dL <199 [facility] Work Phone: [phone] Comment on above: The drugs N-Acetylcy steine and Metamizole may falsely depress this assay.Serum Triglycerides Reference Interval Normal <150 mg/dL Borderline high 150 - 199 mg/dL High 200 - 499 mg/dL Very High > or = 500 mg/dL WBC (Bld) [#/Vol] 9.9 10*3/uL 4.4-11.0 [facility] Work Phone: [phone] Blood erythrocytes count (nu mber/volume)on 03-16-2022 RBC (Bld) [#/Vol] 4.39 10*6/uL 4.2-5.4 [facility] Work Phone: [phone] Blood hemoglobin measurement (mass/volume)on 03-16-2022 Hemoglobin (Bld) [Mass/Vol] 13.5 g/dL 12.0-15.0 [facility] Work Phone: [phone] Blood platelet mean volumeon 03-16-2022 Platelet mean volume (Bld) [Entitic vol] 9.0 fL 6.2-12.0 [facility] Work Phone: [phone] Determination of erythrocyte mean corpuscular volume (MCV)on 03-16-2022 MCV (RBC) [Entitic vol] 92.5 fL 81-99 [facility] Work Phone: [phone] Hematocrit Auto (Bld) [Volum e fraction]on 03-16-2022 Hematocrit (Bld) [Volume fraction] 40.6 % 37-47 [facility] Work Phone: [phone] Laboratory - Chemistry and C hemistry - challengeon 03-16-2022 ALP [Catalytic activity/Vol] 120 U/L 45-117 [facility] Work Phone: [phone] ALT [Catalytic activity/Vol] 17 U/L 13-56 [facility] Work Phone: [phone] CO2 [Moles/Vol] 27.0 mmol/L 21.0-32.0 [facility] Work Phone: [phone] Globulin (S) [Mass/Vol] 4.3 g/dL 2.2-4.2 [facility] Work Phone: Urea nitrogen/Creatinine [Mass ratio] 26.4 mg/mg 10-20 [facility] Work Phone: [phone] Laboratory - Hematology and Cell countson 03-16-2022 Erythrocyte distribution width (RBC) [Entitic vol] 45.4 fL 35.1-43.9 [facility] Work Phone: [phone] Erythrocyte distribution width (RBC) [Ratio] 13.3 % 11.6-14.6 [facility] Work Phone: [phone] MCH (RBC) [Entitic mass] 30.8 pg 27.0-32.0 [facility] Work Phone: [phone] MCHC Auto (RBC) [Mass/Vol]on 03-16-2022 MCHC (RBC) [Mass/Vol] 33.3 g/dL 32-36 [facility] Work Phone: [phone] No Panel Informationon 03-16 Estimated GFR (MDRD) Amer 117 mL/min >60 [facility] Work Phone: [phone] Comment on above: GFR Calc Estimated GFR (MDRD) Non-Af Amer 97 mL/min >60 [facility] Work Phone: [phone] Comment on above: Non- GFR Calc Platelets bldon 03-16-2022 Platelets (Bld) [#/Vol] 466 10*3/uL 150-450 [facility] Work Phone: [phone] Serum or plasma albumin kayley urement (mass/volume)on 03-16-2022 Albumin [Mass/Vol] 3.3 g/dL 3.2-5.0 [facility] Work Phone: [phone] Serum or plasma albumin/glob ulin mass ratioon 03-16-2022 Albumin/Globulin [Mass ratio] 0.8 {ratio} 0.9-2.4 [facility] Work Phone: [phone] Serum or plasma calcium kayley urement (mass/volume)on 03-16-2022 Calcium [Mass/Vol] 9.0 mg/dL 8.5-10.1 [facility] Work Phone: Serum or plasma cholesterol in HDL measurement (mass/volume)on 03-16-2022 Cholesterol in HDL [Mass/Vol] 46 mg/dL >40 [facility] Work Phone: Comment on above: The drugs N-Acetylcy steine and Metamizole may falsely depress this assay. Reference Range HDL <40 mg/dL Low HDL Cholesterol HDL >or= 60 mg/dL High HDL Cholesterol Serum or plasma cholesterol in VLDL measurement (mass/volume)on 03-16-2022 Cholesterol in VLDL [Mass/Vol] 28 mg/dL 5-40 [facility] Work Phone: Serum or plasma creatinine m easurement (mass/volume)on 03-16-2022 Creatinine [Mass/Vol] 0.64 mg/dL 0.55-1.02 [facility] Work Phone: Comment on above: The validity of the calculated GFR & GFRAA in patients over 70 years has not been determined. Clinical correlation is essential. Serum or plasma low density lipoprotein (LDL) cholesterol measurement (mass/volume)on 03-16-2022 Cholesterol in LDL [Mass/Vol] 74 mg/dL 0-130 [facility] Work Phone: Serum or plasma urea nitroge n measurement (mass/volume)on 03-16-2022 Urea nitrogen [Mass/Vol] 17 mg/dL 7-18 [facility] Work Phone: [phone] Thin prep Papanicolaou smear with manual screeningon 03-16-2022 Thin prep Papanicolaou smear with manual screening 10 U/L 15-37 [facility] Work Phone: [phone] Thin prep Papanicolaou smear with manual screening 5 5-15 [facility] Work Phone: [phone] Whole blood hemoglobin A1c/t otal hemoglobin ratio (mass fraction)on 03-16-2022 HbA1c (Bld) [Mass fraction] 7.0 % 3.8-5.6 [facility] Work Phone: Comment on above: Normal < 5.7 % Predi abetic 5.7 - 6.4 % Diabetic >or= 6.5 % Please note range changes. Office Visit (Primary Care T xt/Forms)on 03-01-2022 Follow-up visit Diagnoses/Problems Assessed History of Colonoscopy thomae, 10 years History of mammogram (V15.89) (Z92.89) Diabetes (250.00) (E11.9) Diabetes Benign essential HTN (401.1) (I10) Acquired hypothyroidism (244.9) (E03.9) Hyperlipemia, mixed (272.2) (E78.2) Screening for colon cancer (V76.51) (Z12.11) Orders Acquired hypothyroidism Renew: Levothyroxine Sodium 75 MCG Oral Tablet; TAKE 1 TABLET DAILY Anxiety Renew: Amitriptyline HCl - 25 MG Oral Tablet; TAKE 1 TABLET AT BEDTIME Renew: Escitalopram Oxalate 20 MG Oral Tablet (Lexapro); TAKE 1 TABLET DAILY Benign essential HTN Renew: Losartan Potassium 25 MG Oral Tablet; TAKE 1 TABLET DAILY Benign essential HTN, Diabetes, Hyperlipemia, mixed Complete Blood Count; Status:Active; Requested for:01Mar2022; Comprehensive Metabolic Panel; Status:Active; Requested for:01Mar2022; Hemoglobin A1C; Status:Active; Requested for:01Mar2022; Lipid Panel; Status:Active; Requested for:01Mar2022; Diabetes Renew: metFORMIN HCl ER 500 MG Oral Tablet Extended Release 24 Hour; TAKE 2 TABLET Daily Encounter for screening mammogram for malignant neoplasm of breast Mamm - Screening Mammogram w/ Tomosynthesis; Status:Hold For - Scheduling; Requested for:01Mar2022; Radiologist to Determine Optimal Study : Y What are the patient's signs and symptoms ? : Annual Screening Mammogram Hyperlipemia, mixed Renew: Pravastatin Sodium 20 MG Oral Tablet; TAKE 1 TABLET DAILY Screening for colon cancer Cologuard Screening; Status:Active; Requested for:01Mar2022; Chief Complaint THYROID CHK History of Present Illness only on 2 Met ER for stomach issues. stable on 2 pills but last a1c 7.4. Did feel better clinically when we increase the levothyroxine to 75 mcg. TSH was 2. Diabetes Type II - Takes and tolerates medications. No hypoglycemia. Counseled on diet with low carbohydrate intake, weight loss and increased activity levels/exercise. Hypertension - Takes medication without side effects. No CP/SOB/Palpitations. Follows a no added salt diet. Counseled diet, activity and weight loss. Hypothyroidism - No fatigue/cold intolerance/hair changes/skin changes/weight gain. Hyperlipidemia - Takes and tolerates medications without fatigue and myalgias. Cologuard order done today. Stop the aspirin for 1 week before she collects the sample. Then restart the aspirin. Review of Systems Constitutional: No weakness, No fatigue. Eye: No blurring, No visual disturbances. Respiratory: No shortness of breath, No cough. Cardiovascular: No chest pain, No palpitations. Gastrointestinal: No nausea, No diarrhea, No constipation. Musculoskeletal: No joint pain, No muscle pain. Integumentary: No rash, No breakdown. Neurologic: Alert and oriented X4, No headache. Psychiatric: No irritability, No sleeping problems. Active Problems Problems Acquired hypothyroidism (244.9) (E03.9) Acute pain of right shoulder (719.41) (M25.511) Anxiety (300.00) (F41.9) Benign essential HTN (401.1) (I10) Diabetes (250.00) (E11.9) Encounter for immunization (V03.89) (Z23) Hyperlipemia, mixed (272.2) (E78.2) Left shoulder pain (719.41) (M25.512) Medicare annual wellness visit, subsequent (V70.0) (Z00.00) Menopause (627.2) (Z78.0) Screening breast examination (V76.10) (Z12.39) Past Medical History Problems History of mammogram (V15.89) (Z92.89) Surgical History Problems History of Appendectomy History of section History of Colonoscopy History of Sinus surgery History of Tubal ligation Family History Mother Family history of cerebrovascular accident (CVA) (V17.1) (Z82.3) Family history of hypertension (V17.49) (Z82.49) Father Family history of cerebrovascular accident (CVA) (V17.1) (Z82.3) Family history of hypertension (V17.49) (Z82.49) Child Family history of Cancer of unknown origin Grandparent Family history of diabetes mellitus (V18.0) (Z83.3) Family history of hypertension (V17.49) (Z82.49) Social History Problems Consumes alcohol occasionally (V49.89) (Z78.9) Former smoker (V15.82) (Z87.891) Never chewed tobacco (V49.89) (Z78.9) No advance directives (V49.89) (Z78.9) Current Meds Medication NameInstruction Amitriptyline HCl - 25 MG Oral TabletTAKE 1 TABLET AT BEDTIME. Aspirin 81 MG TABSTAKE 1 TABLET DAILY. Escitalopram Oxalate 20 MG Oral TabletTAKE 1 TABLET DAILY. Levothyroxine Sodium 75 MCG Oral TabletTAKE 1 TABLET DAILY. Losartan Potassium 25 MG Oral TabletTAKE 1 TABLET DAILY. metFORMIN HCl ER 500 MG Oral Tablet Extended Release 24 HourTAKE 2 TABLET Daily Pravastatin Sodium 20 MG Oral TabletTAKE 1 TABLET DAILY. Allergies Medication No Known Drug Allergies Vitals Vital Signs Recorded: 01Mar2022 03:03PM Heart Rate: 83 Systolic: 120 Diastolic: 74 Height: 5 ft 5 in Weight: 163 lb 6 oz BMI Calculated: 27.19 kg/m2 BSA Calculated: 1.82 Tobacco Use: a) Yes Patient encouraged to stop using tobacco products: (more content not included)... Normal [facility] PHQ-2 VITALSon 03-01-2022 Adult depression screening assessment No [employer] [facility] Work Phone: Fall risk assessment a) No falls within the last year [facility] Work Phone: Tobacco use status CP a) Yes [facility] Work Phone: PHQ-2 VITALS Yes [facility] Work Phone: No Panel Informationon 01-19 Thyroid Stimulating Hormone (TSH) 2.02 uIU/mL 0.358-3.74 [facility] Work Phone: Tobacco Screening.on 021 Fall risk assessment a) No falls within the last year [facility] Work Phone: Tobacco use status CP a) Yes [employer] [facility] Work Phone: Tobacco Screening. Yes [facility] [employer] [facility] Work Phone: CMPon 09-04-2018 Albumin [Mass/Vol] 4.0 g/dL Normal 3.4-5.0 [facility] Comment on above: Performed By: #### 2 [id number] #### [facility] [employer] [address] [place] [address] 17863 Albumin/Globulin [Mass ratio] 1.2 {ratio} Normal 1.1-1.9 [facility] Comment on above: Performed By: #### 2 [id number] #### [facility] [employer] [address] [place] [address] 51866 Alk Phos 104 Int._Unit/L Normal 33-136 [facility] Comment on above: Performed By: #### 2 [id number] #### [facility] [employer] [address] [place] [address] 08394 ALT [Catalytic activity/Vol] 11 Int._Unit/L Normal 7-45 [facility] Comment on above: Performed By: #### 2 [id number] #### [facility] [employer] [address] [place] [address] 97968 Anion gap [Moles/Vol] 10 mmol/L Normal 10-20 [facility] Comment on above: Performed By: #### 2 [id number] #### [facility] [employer] [address] [place] [address] 87100 AST [Catalytic activity/Vol] 9 Int._Unit/L Normal 9-39 [facility] Comment on above: Performed By: #### 2 [id number] #### [facility] [employer] [address] [place] [address] 20020 Bili Total 0.30 mg/dL Normal 0.00-1.20 [facility] Comment on above: Performed By: #### 2 [id number] #### [facility] [employer] [address] [place] [address] 68454 Calcium [Mass/Vol] 9.2 mg/dL Normal 8.6-10.3 [facility] Comment on above: Performed By: #### 2 [id number] #### [facility] [employer] [address] [place] [address] 20190 Chloride [Moles/Vol] 103 mmol/L Normal 98-107 [facility] Comment on above: Performed By: #### 2 [id number] #### [facility] [employer] [address] [place] [address] 95887 CO2 [Moles/Vol] 28.0 mmol/L Normal 21.0-32.0 [facility] Comment on above: Performed By: #### 2 [id number] #### [facility] [employer] [address] [place] [address] 52856 Creatinine [Mass/Vol] 0.6 mg/dL Normal 0.5-1.1 [facility] Comment on above: Performed By: #### 2 [id number] #### [facility] [employer] [address] [place] [address] 14178 Globulin (S) [Mass/Vol] 3.0 g/dL Normal 2.0-4.0 [facility] Comment on above: Performed By: #### 2 [id number] #### [facility] [employer] [address] [place] [address] 95235 Glucose [Mass/Vol] 248 mg/dL High 70-99 [facility] Comment on above: Performed By: #### 2 [id number] #### [facility] [employer] [address] [place] [address] 99340 Potassium [Moles/Vol] 4.3 mmol/L Normal 3.5-5.3 [facility] Comment on above: Performed By: #### 2 [id number] #### [facility] [employer] [address] [place] [address] 66539 Protein [Mass/Vol] 7.4 g/dL Normal 6.4-8.2 [facility] Comment on above: Performed By: #### 2 [id number] #### [facility] [employer] [address] [place] [address] 63535 Sodium [Moles/Vol] 136 mmol/L Normal 136-145 [facility] Comment on above: Performed By: #### 2 [id number] #### [facility] [employer] [address] [place] [address] 78551 Urea nitrogen [Mass/Vol] 13 mg/dL Normal 6-23 [facility] Comment on above: Performed By: #### 2 [id number] #### [facility] [employer] [address] [place] [address] 40894 Urea nitrogen/Creatinine [Mass ratio] 21.7 ratio Normal 5.4-30.0 [facility] Comment on above: Performed By: #### 2 [id number] #### [facility] [employer] [address] [place] [address] 92537 [id number] 09-04-2018 HbA1c (Bld) [Mass fraction] 9.1 % High 4.0-6.3 [facility] Comment on above: Performed By: #### 3 [id number] #### LIN[facility] Chemistry Manual Subsection [address] [place] [address] 37336 Lipid Profileon 09-04-2018 Cholesterol [Mass/Vol] 135 mg/dL Normal 0-199 [facility] Comment on above: Result Comment: TOTA L CHOLEESTEROL: <200 NORMAL 200 - 239 BORDERLINE HIGH >240 HIGH Performed By: #### 3 [id number] #### [facility] [employer] [address] [place] [address] 63075 Cholesterol in HDL [Mass/Vol] 40 mg/dL Normal 40-60 [facility] Comment on above: Performed By: #### 3 [id number] #### [facility] [employer] [address] [place] [address] 05384 Cholesterol in LDL [Mass/Vol] 66 mg/dL Normal 0-130 [facility] Comment on above: Result Comment: <100 OPTIMAL 100-129 NEAR / ABOVE OPTIMAL 130-159 BORDERLINE HIGH 160-189 HIGH >190 VERY HIGH CALC LDL NOT VALID WHEN TRIGLYCERIDE IS >400 MG/DL Performed By: #### 3 [id number] #### [facility] [employer] [address] [place] [address] 65057 Cholesterol in VLDL [Mass/Vol] 29 mg/dL Normal 0-40 [facility] Comment on above: Performed By: #### 3 [id number] #### [facility] [employer] [address] [place] [address] 21503 Triglyceride [Mass/Vol] 143 mg/dL Normal 0-149 [facility] Comment on above: Result Comment: AGE DESIRABLE BORDERLINE HIGH 91 D - 9 Y 0 - 74 75 - 99 > 100 10 - 19 Y 0 - 89 90 - 129 > 130 20 -24 Y 0 - 114 115 - 149 > 150 > 25 0 - 149 150 - 199 200 - 499 Performed By: #### 3 [id number] #### [facility] [employer] [address] [place] [address] 95180 Microalb/Creat Ratioon 09-04 Creatinine [Mass/Vol] 132.0 mg/dL Normal 20.0-300.0 [facility] Comment on above: Performed By: #### 1 [id number] #### LINDA [address] [address] Creatinine [Mass/Vol] 29 ug/mg Normal 0-30 [facility] Comment on above: Performed By: #### 1 [id number] #### LINDA [address] [address] Ur Microalbumin 3.8 mg/dL High 0.0-1.9 [facility] Comment on above: Performed By: #### 1 [id number] #### LINDA [address] [address] TSHon 09-04-2018 TSH Qn 3.48 mcIU/mL Normal 0.30-5.60 [facility] Comment on above: Performed By: #### 2 [id number] #### [facility] [place] [id number] eGFRon 09-04-2018 GFR/1.73 sq M predicted among non-blacks MDRD (S/P/Bld) [Vol rate/Area] mL/min/{1.73_m2} Normal [facility] Comment on above: Order Comment: Order added by Discern Expert. Performed By: #### 1 [id number] #### [place] [address] IGP W/hpv Rfx [id number] 06-26 Diagnosis: See Ref Lab Report Normal [facility] Comment on above: Order Comment: Thin Prep. Menopause Performed By: #### 1 [id number] #### LINDA [employer] Outs Subsection [address] [place] [address] 88984 [place] Mamm Screen w/CAD if perf ormed bilaton 03-29-2018 [place] Mamm Screen w/CAD if performed bilat Exam Date/Time: 03/28/2018 13:21 EST Reason for Exam: SCREENING;Screening Report STUDY: Digital mammography screening; 03/28/2018 1:21 pm ACCESSION NUMBER(S): [id number] ORDERING CLINICIAN: Mando Bravo INDICATION: Screening. COMPARISON: Comparison is made to prior digital mammograms dated 03/25/2017 and 11/28/2013 FINDINGS: CC and MLO 2D digital mammographic images of the bilateral breasts were obtained. There are areas of scattered fibroglandular tissue. No discrete mass or focal asymmetry is identified. No suspicious microcalcifications or foci of architectural distortion are seen. There has been no significant change. This study was interpreted with CAD. IMPRESSION: No mammographic evidence of malignancy. BI-RADS CATEGORY: Category: 1 - Negative. Recommendation: Normal Interval Follow-up, Over Age 40. Recall Interval: 12 Months. Breast Density: Scattered Fibroglandular Density. FINAL REPORT Dictated: 03/29/2018 9:36 am Caden Vega MD Signed (Electronic Signature): 03/29/2018 9:36 am Signed by: Caden Vega MD Technologist: JEFF Assessment: BI-RADS Category 1-Negative Recommendation: Normal interval follow-up Normal [facility] Vital Signs Date Time Vital Sign Value Performing Clinician Facility 10-15-2024 17:21-0400 Body temperature 98.91 [degF] Isaias Clutter PA-C Work Phone: [facility] 10-15-2024 17:21-0400 Body weight 70.9 kg Isaias Clutter PA-C Work Phone: [facility] 10-15-2024 17:21-0400 Diastolic blood pressure 68 mm[Hg] Isaias Clutter PA-C Work Phone: [facility] 10-15-2024 17:21-0400 Heart rate 100 /min Isaias Clutter PA-C Work Phone: [facility] 10-15-2024 17:21-0400 Respiratory rate 21 /min Isaias Clutter PA-C Work Phone: [facility] 10-15-2024 17:21-0400 SaO2% (BldA) [Mass fraction] 98 % Isaias Clutter PA-C Work Phone: [facility] 10-15-2024 17:21-0400 Systolic blood pressure 140 mm[Hg] Isaias Clutter PA-C Work Phone: [facility] 10-03-2024 09:59-0400 Body height 165.1 cm Maria Eugenia Ly MD Work Phone: [facility] 10-03-2024 09:59-0400 Body mass index (BMI) [Ratio] 26.13 kg/m2 Maria Eugenia Ly MD Work Phone: [facility] 10-03-2024 09:59-0400 Body weight 71.22 kg Maria Eugenia Ly MD Work Phone: [facility] 10-03-2024 09:59-0400 Diastolic blood pressure 78 mm[Hg] Maria Eugenia Ly MD Work Phone: [facility] 10-03-2024 09:59-0400 Heart rate 62 /min Maria Eugenia Ly MD Work Phone: [facility] 10-03-2024 09:59-0400 SaO2% (BldA) [Mass fraction] 100 % Maria Eugenia Ly MD Work Phone: [facility] 10-03-2024 09:59-0400 Systolic blood pressure 124 mm[Hg] Maria Eugenia Ly MD Work Phone: [facility] 03-16-2024 14:28-0500 Body height 165.1 cm Maria Eugenia Ly MD Work Phone: [facility] 03-16-2024 14:28-0500 Body mass index (BMI) [Ratio] 25.56 kg/m2 Maria Eugenia Ly MD Work Phone: [facility] 03-16-2024 14:28-0500 Body weight 69.67 kg Maria Eugenia Ly MD Work Phone: [facility] 03-16-2024 14:28-0500 Diastolic blood pressure 78 mm[Hg] Maria Eugenia Ly MD Work Phone: [facility] 03-16-2024 14:28-0500 Heart rate 87 /min Maria Eugenia Ly MD Work Phone: [facility] 03-16-2024 14:28-0500 SaO2% (BldA) [Mass fraction] 98 % Maria Eugenia Ly MD Work Phone: [facility] 03-16-2024 14:28-0500 Systolic blood pressure 120 mm[Hg] Maria Eugenia Ly MD Work Phone: 3(459)757-297451 [place] [address] 06-24-2023 13:12-0500 Body height 165.1 cm Maria Eugenia Ly MD Work Phone: 1(916)512-374951 [place] [address] 06-24-2023 13:12-0500 Body mass index (BMI) [Ratio] 25.23 kg/m2 Maria Eugenia Ly MD Work Phone: 5(085)821-978051 [place] [address] 06-24-2023 13:12-0500 Body weight 68.77 kg Maria Eugenia Ly MD Work Phone: 0(032)837-079851 [place] [address] 06-24-2023 13:12-0500 Diastolic blood pressure 78 mm[Hg] Maria Eugenia Ly MD Work Phone: 2(391)507-645451 [place] [address] 06-24-2023 13:12-0500 Heart rate 91 /min Maria Eugenia Ly MD Work Phone: 7(494)760-614451 [place] [address] 06-24-2023 13:12-0500 SaO2% (BldA) [Mass fraction] 98 % Maria Eugenia Ly MD Work Phone: 4(970)197-995051 [place] [address] 06-24-2023 13:12-0500 Systolic blood pressure 126 mm[Hg] Maria Eugenia Ly MD Work Phone: 2(106)521-073751 [place] [address] 01-04-2023 13:45-0400 Body height 165.1 cm Maria Eugenia Ly MD Work Phone: 0(519)628-814451 [place] [address] 01-04-2023 13:45-0400 Body mass index (BMI) [Ratio] 24.23 kg/m2 Maria Eugenia Ly MD Work Phone: 6(673)959-982851 [place] [address] 01-04-2023 13:45-0400 Body weight 66.04 kg Maria Eugenia Ly MD Work Phone: [facility] 01-04-2023 13:45-0400 Diastolic blood pressure 70 mm[Hg] Maria Eugenia Ly MD Work Phone: [facility] 01-04-2023 13:45-0400 Heart rate 82 /min Maria Eugenia Ly MD Work Phone: [facility] 01-04-2023 13:45-0400 SaO2% (BldA) [Mass fraction] 97 % Maria Eugenia Ly MD Work Phone: [facility] 01-04-2023 13:45-0400 Systolic blood pressure 128 mm[Hg] Maria Eugenia Ly MD Work Phone: [facility] 12-30-2022 01:07-0400 Diastolic blood pressure 73 mm[Hg] [facility] 12-30-2022 01:07-0400 Heart rate 95 /min [facility] 12-30-2022 01:07-0400 Respiratory rate 16 /min [facility] 12-30-2022 01:07-0400 SaO2% (BldA) [Mass fraction] 96 % [facility] 12-30-2022 01:07-0400 Systolic blood pressure 130 mm[Hg] [facility] 12-29-2022 20:41-0400 Body height 165.[address] [facility] 12-29-2022 20:41-0400 Body mass index (BMI) [Ratio] 24.7 kg/m2 [facility] 12-29-2022 20:41-0400 Body temperature 96.6 [degF] [facility] 12-29-2022 20:41-0400 Body weight 67.[address] [facility] 09-06-2022 13:44-0400 Body height 165.1 cm Maria Eugenia Ly Work Phone: [address] Work Phone: 09-06-2022 13:44-0400 Body mass index (BMI) [Ratio] 25.75 kg/m2 Maria Eugenia Ly Work Phone: [place] [address] [place] [place] Work Phone: 09-06-2022 13:44-0400 Body surface area Derived from formula 1.77 m2 Maria Eugenia Malik Furness Work Phone: [place] [address] [address] [place] Work Phone: 09-06-2022 13:44-0400 Body weight 70.2 kg Maria Eugenia Malik Furness Work Phone: [place] [address] [place] [place] Work Phone: 09-06-2022 13:44-0400 Diastolic blood pressure 64 mm[Hg] Maria Eugenia Malik Furness Work Phone: [place] [address] [place] [place] Work Phone: 09-06-2022 13:44-0400 Systolic blood pressure 116 mm[Hg] Maria Eugenia Malik Furness Work Phone: [place] [address] [place] [place] Work Phone: 08-23-2022 14:14-0400 Body temperature 96.69 [degF] Vivienne Athy PA-C Work Phone: [facility] 08-23-2022 14:14-0400 Body weight 70.03 kg Vivienne Athy PA-C Work Phone: [facility] 08-23-2022 14:14-0400 Diastolic blood pressure 76 mm[Hg] Vivienne Athy PA-C Work Phone: [facility] 08-23-2022 14:14-0400 Heart rate 81 /min Vivienne Athy PA-C Work Phone: [facility] 08-23-2022 14:14-0400 Respiratory rate 18 /min Vivienne Athy PA-C Work Phone: [facility] 08-23-2022 14:14-0400 SaO2% (BldA) [Mass fraction] 98 % Vivienne Athy PA-C Work Phone: [facility] 08-23-2022 14:14-0400 Systolic blood pressure 120 mm[Hg] Vivienne Munir STEVE Work Phone: [facility] 08-18-2022 09:35-0400 Body height 165.1 cm Maria Eugenia T Furness Work Phone: [place] [address] [place] [place] Work Phone: 08-18-2022 09:35-0400 Body mass index (BMI) [Ratio] 25.71 kg/m2 Maria Eugenia T Furness Work Phone: [place] [address] [place] [place] Work Phone: 08-18-2022 09:35-0400 Body surface area Derived from formula 1.77 m2 Maria Eugenia T Furness Work Phone: [place] [address] [place] [place] Work Phone: 08-18-2022 09:35-0400 Body weight 70.08 kg Maria Eugenia T Furness Work Phone: [place] [address] [place] [place] Work Phone: 08-18-2022 09:35-0400 Diastolic blood pressure 70 mm[Hg] Maria Eugenia T Furness Work Phone: [place] [address] [place] [place] Work Phone: 08-18-2022 09:35-0400 Systolic blood pressure 140 mm[Hg] Maria Eugenia Ted Furness Work Phone: [place] [address] [place] [place] Work Phone: 03-01-2022 15:03-0400 Body height 165.1 cm Maria Eugenia T Furness Work Phone: [facility] Work Phone: 03-01-2022 15:03-0400 Body mass index (BMI) [Ratio] 27.19 kg/m2 Maria Eugenia T Furness Work Phone: [facility] Work Phone: 03-01-2022 15:03-0400 Body surface area Derived from formula 1.82 m2 Maria Eugenia Ly Work Phone: [facility] Work Phone: 03-01-2022 15:03-0400 Body weight 74.11 kg Maria Eugenia Ly Work Phone: [facility] Work Phone: 03-01-2022 15:03-0400 Diastolic blood pressure 74 mm[Hg] Maria Eugenia Ly Work Phone: [facility] Work Phone: 03-01-2022 15:03-0400 Heart rate 83 /min Maria Eugenia Ly Work Phone: [facility] Work Phone: 03-01-2022 15:03-0400 SaO2% (BldA) [Mass fraction] 100 % Maria Eugenia Ly Work Phone: [facility] Work Phone: 03-01-2022 15:03-0400 Systolic blood pressure 120 mm[Hg] Maria Eugenia Ly Work Phone: [facility] Work Phone: 03-25-2021 09:44-0500 Body height 165.1 cm Maria Eugenia Ly Work Phone: [facility] Work Phone: 03-25-2021 09:44-0500 Body mass index (BMI) [Ratio] 28.32 kg/m2 Maria Eugenia Ly Work Phone: [employer] Work Phone: 03-25-2021 09:44-0500 Body surface area Derived from formula 1.85 m2 Maria Eugenia Ly Work Phone: [facility] [place] Work Phone: 03-25-2021 09:44-0500 Body temperature 96.2 [degF] Maria Eugenia Ly Work Phone: [employer] Work Phone: 03-25-2021 09:44-0500 Body weight 77.2 kg Maria Eugenia Ly Work Phone: [facility] Work Phone: 03-25-2021 09:44-0500 Diastolic blood pressure 62 mm[Hg] Maria Eugenia Ly Work Phone: [facility] [facility] Work Phone: 03-25-2021 09:44-0500 Heart rate 87 /min Maria Eugenia Ly Work Phone: [employer] [facility] Work Phone: 03-25-2021 09:44-0500 SaO2% (BldA) [Mass fraction] 100 % Maria Eugenia Ly Work Phone: [facility] Work Phone: 03-25-2021 09:44-0500 Systolic blood pressure 114 mm[Hg] Maria Eugenia Ly Work Phone: [facility] Work Phone: Encounters Encounter Date Encounter Type Care Provider Facility Start: 10-15-2024 End: 10-15-2024 Subsequent hospital visit by physician [facility] Work Phone: Radiology Comment on above: Lumbar back pain [M5 4.50] Start: 10-15-2024 End: 10-15-2024 Office outpatient visit 25 minutes Isaias Schuler PA-C Work Phone: [facility] Comment on above: Lumbar back pain (Pr imary Dx) Start: 10-15-2024 End: 10-15-2024 ambulatory MARIA EUGENIAIMELDA LY Facility:[facility] Start: 10-03-2024 End: 10-03-2024 Office outpatient visit 25 minutes Maria Eugenia Ly MD Work Phone: [facility] Comment on above: Type 2 diabetes jonathan itus without complication, without long- term current use of insulin (Primary Dx); Benign essential HTN; Acquired hypothyroidism; Anxiety Start: 10-03-2024 End: 10-03-2024 ambulatory [facility] Start: 09-11-2024 End: 09-11-[address] Maria Eugenia Ly MD Work Phone: [facility] Work Phone: Start: 09-11-2024 End: 09-11-[address] Maria Eugenia Ly MD -Laboratory, [place] Work Phone: Start: 09-11-2024 End: 09-11-2024 [facility] Start: 03-16-2024 End: 03-16-2024 Assay of hemosiderin, quant Maria Eugenia Ly MD Work Phone: [facility] Work Phone: Start: 03-16-2024 End: 03-16-2024 Patient encounter procedure Maria Eugenia Ly MD Work Phone: [facility] Comment on above: Routine general medi brant examination at health care facility (Primary Dx); Hyperlipemia, mixed; Anxiety; Acquired hypothyroidism; Benign essential HTN; Type 2 diabetes mellitus without complication, without long-term current use of insulin ([facility]) Start: 03-16-2024 End: 03-16-2024 ambulatory [facility] Start: 03-16-2024 End: 03-16-2024 Encounter for general adult medical examination without abnormal findings [facility] Start: 03-01-2024 End: 03-01-2024 ambulatory [facility] Facility:[facility] Start: 06-24-2023 End: 06-24-2023 Office outpatient visit 25 minutes Maria Eugenia Ly MD Work Phone: Medical [facility] Comment on above: Type 2 diabetes jonathan itus without complication, without long- term current use of insulin ([facility]) (Primary Dx); Benign essential HTN; Acquired hypothyroidism Start: 06-04-2023 Telephone encounter Yari Argenis POOLOIL DISPATCHER Work Phone: [facility] Comment on above: Results Start: 2023 End: 03-25-2023 ambulatory ARGENIS Vargas [facility] Start: 01-04-2023 End: 01-04-2023 Assay of hemosiderin, quant Maria Eugenia Ly MD Work Phone: [facility] Work Phone: Start: 01-04-2023 End: 01-04-2023 Patient encounter procedure Maria Eugenia Ly MD Work Phone: Medical [facility] Comment on above: Routine general medi brant examination at health care facility (Primary Dx); Type 2 diabetes mellitus without complication, without long-term current use of insulin ([facility]); Acquired hypothyroidism; Hyperlipemia, mixed; Benign essential HTN Start: 12-29-2022 End: 12-30-2022 Emergency department patient visit [facility]-Emergency Department Work Phone: Start: 09-10-2022 Chart Update Maria Eugenia munguia Work Phone: [facility] [employer] Work Phone: Start: 09-07-2022 Chart Update Maria Eugenia munguia Work Phone: [facility] [employer] Work Phone: Start: 09-06-2022 Encounter for gynecological examination (general) (routine) without abnormal findings ARGENIS GARCIA [facility] Start: 09-06-2022 Encounter for gynecological examination (general) (routine) without abnormal findings Dr. Maria Eugenia Ly Facility:[facility] Start: 09-06-[address] Maria Eugenia Lacey Facility:[facility] Start: 08-23-2022 End: 08-23-2022 Patient encounter procedure Vivienne Amaral PA-C Work Phone: [facility] Comment on above: Urinary frequency (P rimary Dx) Start: 08-20-2022 Chart Update Maria Eugenia T Furn ess Work Phone: [facility] [employer] Work Phone: Start: 08-18-2022 Office outpatient ne w 30 minutes Maria Eugenia Malik Furness Work Phone: [facility] [address] Work Phone: Start: 08-18-[address] Maria Eugenia Ko Furness Facility:[id number] Start: 03-25-2022 AUDIT Maria Eugenia munguia Work Phone: [employer] [facility] Work Phone: Start: [address] Maria Eugenia Ko Aliyah Facility:[id number] Start: 03-16-2022 End: 03-16-2022 ambulatory [facility] Work Phone: Start: 03-16-2022 End: 03-16-2022 Patient encounter procedure [facility] Start: 03-01-2022 Office outpatient vi sit 25 minutes Maria Eugenia Malik Furness Work Phone: [facility] [facility] Work Phone: Start: 03-01-[address] Maria Eugenia Ko Furness Facility:[id number] Start: 01-21-2022 Patient encounter procedure Maria Eugenia Malik Furness Work Phone: [employer] [facility] Work Phone: Start: 01-19-2022 End: 01-19-2022 Patient encounter procedure [facility] Start: 03-25-2021 Office outpatient vi sit 25 minutes Maria Eugenia Malik Furness Work Phone: [employer] [facility] Work Phone: Patient encounter procedure Maria Eugenia T Furness Work Phone: [employer] [facility] Work Phone: End: 09-10-2022 Patient encounter procedure Maria Eugenia T Furness Work Phone: [place] [address] [address] Work Phone: Comment on above: 09/06/2022: CoTest N egative; Procedures Date Procedure Procedure Detail Performing Clinician Start: 10-15-2024 Radex spine lumbosac ral 2/3 views Isaias Schuler PA-C Work Phone: Start: 10-15-2024 Urnls dip stick/tabl et rgnt auto w/o microscopy Isaias Schuler PA-C Work Phone: Start: 2023 BI MAMMO BILATERAL SCREENING TOMOSYNTHESIS ARGENIS GARCIA Start: 2023 Mammography Maria Eugenia ybarra MD Work Phone: Start: 12-29-2022 CT angiography of ch est with contrast Start: 08-23-2022 Urnls dip stick/tabl et rgnt auto w/o microscopy Vivienne Amaral PA-C Work Phone: Start: 2022 Mammography Maria Eugenia ybarra MD Work Phone: Start: 03-25-2021 Lipid 1996 panel - S [place] or Plasma Maria Eugenia Ly MD Work Phone: Start: 03-25-2021 Thyrotropin [Units/v olume] in Serum or Plasma Maria Eugenia Ly MD Work Phone: Start: 02-21-2012 Colonoscopy Maria Eugenia ybarra MD Work Phone: Start: 02-21-2012 Colonoscopy Maria Eugenia Ly Work Phone: Comment on above: michaela, 10 years; Appendectomy Maria Eugenia Arshad Work Phone: section Maria Eugenia de los santos Work Phone: Ligation of fallopian tube P thad Ly Work Phone: Nasal sinus procedure Wood Ly Work Phone: Plan of Treatment Date Care Activity Detail Author Start: 2028 RSV High Risk: (Elde rly (60+) or Population) (1 - 1-dose 75+ series) RSV High Risk: (Elderly (60+) or Population) (1 - 1-dose 75+ series) [facility] Start: 2028 RSV Vaccine (1 - 1-d ose 75+ series) RSV Vaccine (1 - 1-dose 75+ series) [facility] Start: 04-02-2025 End: 04-02-2025 Patient encounter procedure 04/02/2025 2:00 PM EST Office Visit [facility] [address] [id number] Maria Eugenia Ly MD [address] [address] [facility] Start: 2025 Screening for malign ant neoplasm of colon [facility] Start: 03-17-2025 Medicare Annual Wellness Visit Medicare Annual Wellness Visit (AWV) [facility] Start: 01-23-2025 Glaucoma screening Diabetes: R etinopathy Screening [facility] Start: 01-07-2025 Influenza vaccination Influenz a Vaccine (Season Ended) [facility] Start: 10-03-2024 End: 10-03-2025 CBC panel - Blood by Automated count CBC Lab Routine Type 2 diabetes mellitus without complication, without long-term current use of insulin Benign essential HTN Expected: 10/03/2024 (Approximate), Expires: 10/03/2025 [facility] Service Area Work Phone: Comment on above: Expected: 10/03/2024 (Approximate), Expires: 10/03/2025 Start: 10-03-2024 End: 10-03-2025 Comprehensive metabolic 2000 panel - Serum or Plasma Comprehensive Metabolic Panel Lab Routine Type 2 diabetes mellitus without complication, without long-term current use of insulin Benign essential HTN Expected: 10/03/2024 (Approximate), Expires: 10/03/2025 [facility] Work Phone: Comment on above: Expected: 10/03/2024 (Approximate), Expires: 10/03/2025 Start: 10-03-2024 End: 10-03-2025 Hemoglobin A1c/Hemoglobin.total in Blood Hemoglobin A1C Lab Routine Type 2 diabetes mellitus without complication, without long-term current use of insulin Expected: 10/03/2024 (Approximate), Expires: 10/03/2025 [facility] Work Phone: Comment on above: Expected: 10/03/2024 (Approximate), Expires: 10/03/2025 Start: 10-03-2024 End: 10-03-2025 Thyrotropin [Units/volume] in Serum or Plasma Thyroid Stimulating Hormone Lab Routine Acquired hypothyroidism Expected: 10/03/2024 (Approximate), Expires: 10/03/2025 [facility] Work Phone: Comment on above: Expected: 10/03/2024 (Approximate), Expires: 10/03/2025 Start: 09-13-2024 End: 09-13-2024 Patient encounter procedure 09/13/2024 2:00 PM EDT Office Visit [address] [id number] Maria Eugenia Ly MD [address] [place] [id number] [facility] Start: 05-09-2024 Advance Directive Discussion Advance Directive Discussion [facility] Start: 2024 Screening for malign ant neoplasm of breast [facility] Start: 03-16-2024 End: 03-16-2025 Comprehensive metabolic 2000 panel - Serum or Plasma Comprehensive Metabolic Panel Lab Routine Type 2 diabetes mellitus without complication, without long-term current use of insulin (Multi) Expected: 03/16/2024 (Approximate), Expires: 03/16/2025 [facility] Service Area Work Phone: Comment on above: Expected: 03/16/2024 (Approximate), Expires: 03/16/2025 Start: 03-16-2024 End: 03-16-2025 Hemoglobin A1c/Hemoglobin.total in Blood Hemoglobin A1C Lab Routine Type 2 diabetes mellitus without complication, without long-term current use of insulin (Multi) Expected: 03/16/2024 (Approximate), Expires: 03/16/2025 [facility] Work Phone: Comment on above: Expected: 03/16/2024 (Approximate), Expires: 03/16/2025 Start: 01-08-2024 COVID-19 Vaccine () COVID-19 Vaccine ( season) [facility] Start: 01-08-2024 Influenza vaccination Influenza Vacc ine (#1) [facility] Start: 01-06-2024 Medicare Annual Wellness Visit Medicare Annual Wellness Visit (AWV) [facility] Start: 12-23-2023 End: 06-24-2024 CBC panel - Blood by Automated count CBC Lab Routine Type 2 diabetes mellitus without complication, without long-term current use of insulin (CMS/HCC) Benign essential HTN Expected: 12/23/2023 (Approximate), Expires: 06/24/2024 [facility] Service Area Work Phone: Comment on above: Expected: 12/23/2023 (Approximate), Expires: 06/24/2024 Start: 12-23-2023 End: 06-24-2024 Comprehensive metabolic 2000 panel - Serum or Plasma Comprehensive Metabolic Panel Lab Routine Type 2 diabetes mellitus without complication, without long-term current use of insulin (CMS/HCC) Benign essential HTN Expected: 12/23/2023 (Approximate), Expires: 06/24/2024 [facility] Work Phone: Comment on above: Expected: 12/23/2023 (Approximate), Expires: 06/24/2024 Start: 12-23-2023 End: 06-24-2024 Hemoglobin A1c/Hemoglobin.total in Blood Hemoglobin A1C Lab Routine Type 2 diabetes mellitus without complication, without long-term current use of insulin (CMS/HCC) Expected: 12/23/2023 (Approximate), Expires: 06/24/2024 [facility] Work Phone: Comment on above: Expected: 12/23/2023 (Approximate), Expires: 06/24/2024 Start: 12-23-2023 End: 06-24-2024 Thyrotropin [Units/volume] in Serum or Plasma Thyroid Stimulating Hormone Lab Routine Acquired hypothyroidism Expected: 12/23/2023 (Approximate), Expires: 06/24/2024 [facility] Work Phone: Comment on above: Expected: 12/23/2023 (Approximate), Expires: 06/24/2024 Start: 06-14-2023 Hemoglobin A1c measurement Diabetes: Hemoglobin A1C [facility] Start: 05-09-2023 Advance Directive Discussion Advance Directive Discussion [facility] Start: 05-09-2023 Depression Assessment Depression Ass essment [facility] Start: 2023 Screening for malign ant neoplasm of breast Mammogram [facility] Start: 03-15-2023 DTaP/Tdap/Td Vaccine s (2 - Tdap) DTaP/Tdap/Td Vaccines (2 - Tdap) [facility] Start: 03-15-2023 Urine microalbumin profile DTaP,Tdap,Td Vaccine (2 - Tdap) [facility] Start: 01-07-2023 Covid-19 Vaccine ( season) Covid-19 Vaccine () [facility] Start: 01-07-2023 [facility] Start: 01-04-2023 End: 01-05-2024 CBC panel - Blood by Automated count CBC Lab Routine Type 2 diabetes mellitus without complication, without long-term current use of insulin (CMS/HCC) Benign essential HTN Expected: 01/04/2023 (Approximate), Expires: 01/05/2024 [facility] Service Area Work Phone: Comment on above: Expected: 01/04/2023 (Approximate), Expires: 01/05/2024 Start: 01-04-2023 End: 01-05-2024 Cobalamin (Vitamin B12) [Mass/volume] in Serum or Plasma Vitamin B12 Lab Routine Type 2 diabetes mellitus without complication, without long-term current use of insulin (CMS/HCC) Benign essential HTN Expected: 01/04/2023 (Approximate), Expires: 01/05/2024 [facility] Work Phone: Comment on above: Expected: 01/04/2023 (Approximate), Expires: 01/05/2024 Start: 01-04-2023 End: 01-05-2024 Comprehensive metabolic 2000 panel - Serum or Plasma Comprehensive Metabolic Panel Lab Routine Type 2 diabetes mellitus without complication, without long-term current use of insulin ([facility]) Benign essential HTN Expected: 01/04/2023 (Approximate), Expires: 01/05/2024 [facility] Work Phone: Comment on above: Expected: 01/04/2023 (Approximate), Expires: 01/05/2024 Start: 01-04-2023 End: 01-05-2024 Hemoglobin A1c/Hemoglobin.total in Blood Hemoglobin A1C Lab Routine Type 2 diabetes mellitus without complication, without long-term current use of insulin (CMS/HCC) Expected: 01/04/2023 (Approximate), Expires: 01/05/2024 [facility] Work Phone: Comment on above: Expected: 01/04/2023 (Approximate), Expires: 01/05/2024 Start: 01-04-2023 End: 01-05-2024 Lipid 1996 panel - Serum or Plasma Lipid Panel Lab Routine Hyperlipemia, mixed Expected: 01/04/2023 (Approximate), Expires: 01/05/2024 [facility] Work Phone: Comment on above: Expected: 01/04/2023 (Approximate), Expires: 01/05/2024 Start: 01-04-2023 End: 01-05-2024 Magnesium [Mass/volume] in Serum or Plasma Magnesium Lab Routine Type 2 diabetes mellitus without complication, without long-term current use of insulin ([facility]) Benign essential HTN Expected: 01/04/2023 (Approximate), Expires: 01/05/2024 [facility] Work Phone: Comment on above: Expected: 01/04/2023 (Approximate), Expires: 01/05/2024 Start: 01-04-2023 End: 01-05-2024 Thyrotropin [Units/volume] in Serum or Plasma Thyroid Stimulating Hormone Lab Routine Acquired hypothyroidism Expected: 01/04/2023 (Approximate), Expires: 01/05/2024 [facility] Work Phone: Comment on above: Expected: 01/04/2023 (Approximate), Expires: 01/05/2024 Start: 12-29-2022 [facility] Start: 09-06-2022 Patient encounter procedure ANNUAL, Provider: Argenis Garcia, Status: Ryan, Time: 1:[address] Work Phone: Start: 05-09-2022 ADVANCE DIRECTIVE DISCUSSION ADVANCE DIRECTIVE DISCUSSION [facility] Start: 05-09-2022 DEPRESSION ASSESSMENT DEPRESSION ASS ESSMENT [facility] Start: 03-25-2022 Lipid panel Lipid Panel [facility] Start: 03-25-2022 Thyroid stimulating hormone measurement TSH Level [facility] Start: 03-01-2022 EPV, Provider: Maria Eugenia Ly, Status: Pen, Time: 3:00 PM EPV, Provider: Maria Eugenia Ly, Status: Pen, Time: 3:00 PM [facility] Work Phone: Start: 02-20-2022 Screening for malign ant neoplasm of colon Colonoscopy [facility] Start: 02-11-2022 COVID-19 VACCINE (4 - Booster for Moderna series) COVID-19 VACCINE (4 - Booster for Moderna series) [facility] Start: 02-11-2022 COVID-19 Vaccine (4 - Moderna series) COVID-19 Vaccine (4 - Moderna series) [facility] Start: 06-25-2021 Hemoglobin A1c measurement Diabetes: Hemoglobin A1C [facility] Start: 2018 BONE DENSITY BONE DENSITY [facility] Start: 2018 PNEUMOCOCCAL: 65+ (1 - PCV) PNEUMOCOCCAL: 65+ (1 - PCV) [facility] Start: 2018 Screening for osteoporosis Bone Density Screening [facility] Start: 2013 RSV High Risk: (Elde rly (60+) or Population) (1 - Risk 60-74 years 1-dose series) RSV High Risk: (Elderly (60+) or Population) (1 - Risk 60-74 years 1-dose series) [facility] Start: 2013 RSV Vaccine (1 - 1-d ose 60+ series) RSV Vaccine (1 - 1-dose 60+ series) [facility] Start: 2003 SHINGRIX VACCINE (1 of 2) SHINGRIX VACCINE (1 of 2) [facility] Start: 1998 COLOGUARD (FIT-DNA) COLOGUARD (FIT-D NA) [facility] Start: 1998 Colonoscopy COLONOSCOPY [facility] Start: 1998 COLORECTAL CANCER SCREENING COLORECTAL CANCER SCREENING [facility] Start: [address] COLONOGRAPHY [facility] Start: 1998 DIABETES SCREEN DIABETES SCREEN [facility] Start: 1998 Diabetes Screening Diabetes Screenin g [facility] Start: 1998 FECAL OCCULT BLOOD FECAL OCCULT BLOO D [facility] Start: 1998 Lipid panel Lipid Screening [facility] Start: 1998 LIPID SCREEN LIPID SCREEN [facility] Start: 1998 Screening for malign ant neoplasm of colon [facility] Start: 1998 SIGMOIDOSCOPY SIGMOIDOSCOPY [facility] Start: 1993 Mammography MAMMOGRAM [facility] Start: 1972 Urine microalbumin profile DTAP,TDAP,TD (1 - Tdap) [facility] Start: 1972 Urine screening for protein Diabetes: Urine Protein Screening [facility] Start: 1971 Anxiety Screening Anxiety Screening [facility] Start: 1971 Depression Screening Depression Scre ening [facility] Start: 1971 HEPATITIS C SCREENING HEPATITIS C [facility] Start: 1971 Hepatitis C screening Hepatitis C [facility] Start: 1963 Diabetic foot examination Diabetes: Foot Exam [facility] Start: 1963 Glaucoma screening Diabetes: R etinopathy Screening [facility] Start: 1953 Medicare Annual Wellness Visit Medicare Annual Wellness Visit (AWV) [facility] Start: 1953 Screening for malign ant neoplasm of colon [facility] Start: 1953 Urine screening for protein Diabetes: Urine Protein Screening [facility] Bacteria identified in Urine by Culture URINE CULTURE Microbiology Routine Urinary frequency 08/23/2022 2:30 PM EDT [facility] Work Phone: Patient Education ED Chest Pain, Uncertain Cause [facility] Work Phone: Patient referral [facility] Work Phone: Immunizations Immunization Date Immunization Notes Care Provider Kyle james 12-17-2021 Moderna COVID-19 Vac cine 100 MCG/0.5ML Intramuscular Suspension Maria Eugenia Ly Work Phone: [facility] Work Phone: 03-25-2021 pneumococcal polysaccharide vaccine, 23 valent; Translations: [Pneumococcal polysaccharide vaccine, 23 valent] Maria Eugenia Ly Work Phone: [employer] [facility] Work Phone: Comment on above: Series: 08-28-2020 Moderna COVID-19 Vac cine 100 MCG/0.5ML Intramuscular Suspension Maria Eugenia Ly Work Phone: [facility] Work Phone: 07-31-2020 Moderna COVID-19 Vac cine 100 MCG/0.5ML Intramuscular Suspension Maria Eugenia Ly Work Phone: [employer] [facility] Work Phone: 05-29-2020 zoster vaccine recombinant Maria Eugenia Ly Work Phone: [employer] [facility] Work Phone: Comment on above: Series: 03-20-2020 Influenza, injectabl e, Madin Adeola Canine Kidney, preservative free, quadrivalent Maria Eugenia Ly Work Phone: [facility] Work Phone: 03-20-2020 influenza virus vacc ine, unspecified formulation Maria Eugenia Ly MD Work Phone: [facility] Work Phone: 11-07-2019 hepatitis A vaccine, adult dosage Maria Eugenia Ly Work Phone: [facility] Work Phone: Comment on above: Series: 11-07-2019 zoster vaccine recombinant Maria Eugenia Ly Work Phone: [facility] Work Phone: Comment on above: Series: 02-14-2019 Influenza, injectabl e, Madin Adeola Canine Kidney, preservative free, quadrivalent Maria Eugenia Ly MD Work Phone: [facility] Work Phone: 02-14-2019 influenza, seasonal, injectable Maria Eugenia Ly Work Phone: -[facility] Work Phone: Comment on above: Series: 02-14-2019 pneumococcal conjuga te vaccine, 13 valent Maria Eugenia Ly Work Phone: [facility] Work Phone: Comment on above: Series: 03-15-2013 diphtheria, tetanus toxoids and acellular pertussis vaccine Maria Eugenia Ly Work Phone: [facility] Work Phone: Comment on above: Series: Payers Date Payer Category Payer Self-pay [id number] 2023 Medicare (Managed Care) [id number] 2023 Medicare [id number] 2018 Medicare [id number] 2018 Medicare [id number] 2018 Unknown 2018 Unknown [id number] 1955 Unknown [id number] 1953 Unknown [id number] 1953 Unknown [id number] 1953 Unknown [id number] 1953 Unknown [id number] 1953 Unknown [id number] 1953 Unknown [id number] 1953 Unknown [id number] 1953 Unknown [id number] Unknown [facility] [id number] aa Unknown [id number] Unknown [id number] Social History Date Type Detail Facility Assertion Unknown if ever smoked [facility] Work Phone: Start: 01-04-2023 End: 06-01-2023 Never chewed tobacco Never chewed tobacco [facility] Work Phone: Start: 03-20-2020 End: 12-29-2022 Tobacco smoking status NHIS Unknown if ever smoked [facility] Start: 1955 Sex Assigned At Female W [facility] Start: 08-23-2022 End: 01-04-2023 Tobacco smoking status NHIS Never smoked tobacco [facility] Start: 08-23-2022 End: 01-04-2023 Tobacco use and exposure Smokeless tobacco non-user [facility] Start: 1955 Sex Assigned At Not on file [facility] Start: 01-04-2023 End: 10-03-2024 Alcohol intake Current drinker of alcohol (finding) [facility] Work Phone: Start: 01-04-2023 End: 06-01-2023 Tobacco use panel [facility] Work Phone: Start: 06-14-2023 End: 10-03-2024 Exposure to SARS-CoV-2 (event) Not sure [facility] Start: 12-29-2022 Tobacco smoking stat us NHIS Ex-smoker (finding) [facility] Functional Status Date Assessment Result Facility 10-03-2024 Patient Health Questionnaire 2 item (PHQ-2) [Reported] [facility] NEGATED: Highlighted row Functional performance Functional status health issues are not documented Disease [facility] Work Phone: Mental Status Date Assessment Result Facility 12-29-2022 Cognitive function Voice/Name [facility] Work Phone: NEGATED: Highlighted row Cognitive function [Interpretation] Cognitive status health issues are not documented Disease [facility] Work Phone: Clinical Notes 08-11-2022 to 10-15-2024 Manuel Rodríguez RT(R) - 10/15/2024 5:40 PM Isaias Sarkar PA-C - 10/15/2024 5:34 PM Soraida Ly MD - 10/03/2024 10:00 AM Soraida Ly MD - 03/16/2024 2:20 PM EST Note Date & Type Note Facility 10-15-2024 History of Presen t illness Narrative Radiology Service Progress Note PATIENT NAME: Philly Ricks DATE OF SERVICE: October 15, 2024 TIME: 5:35 PM PATIENT IDENTITY VERIFICATION COMPLETED USING TWO (2) IDENTIFIERS: Name and Date of confirmed by patient verbally. FALL SCREENING: Has the patient had 2 falls in the last year or 1 fall with injury or currently using an Ambulatory Assistive Device (Walker, Cane, Wheelchair, Crutches, etc.)? No PATIENT GENDER DATA: Assigned female at . status: : No status: NO. PATIENT RELEVANT IMPLANT DATA REVIEWED: Not Applicable PATIENT PRESENTS WITH AN IMPLANTABLE OR ATTACHED REROLLER HAND: No RADIOLOGY DEPARTMENT: General X-ray: Exam(s) Completed: Spine X-Ray(s): Lumbar AP / LAT / L5-S1 PERIPHERAL IV DATA: Not applicable SIGNED BY: RT Natalio(R) October 15, 2024 5:35 PM documented in this encounter [facility] 10-15-2024 Note HNO ID: [id number] Author: MANUEL RODRÍGUEZ RT(R) Service: Radiology Author Type: Technologist Type: Progress Notes Filed: 10/15/2024 17:44 Note Text: Radiology Service Progress Note PATIENT NAME: Philly Ricks DATE OF SERVICE: October 15, 2024 TIME: 5:35 PM PATIENT IDENTITY VERIFICATION COMPLETED USING TWO (2) IDENTIFIERS: Name and Date of confirmed by patient verbally. FALL SCREENING: Has the patient had 2 falls in the last year or 1 fall with injury or currently using an Ambulatory Assistive Device (Walker, Cane, Wheelchair, Crutches, etc.)? No PATIENT GENDER DATA: Assigned female at . status: : No status: NO. PATIENT RELEVANT IMPLANT DATA REVIEWED: Not Applicable PATIENT PRESENTS WITH AN IMPLANTABLE OR ATTACHED REROLLER HAND: No RADIOLOGY DEPARTMENT: General X-ray: Exam(s) Completed: Spine X-Ray(s): Lumbar AP / LAT / L5-S1 PERIPHERAL IV DATA: Not applicable SIGNED BY: RT Natalio(R) October 15, 2024 5:35 PM [facility] 10-15-2024 Note HNO ID: [id number] Author: ISAIAS SCHULER PA-C Service: ? Author Type: Physician Computer Lab Aide Type: Progress Notes Filed: 10/15/2024 19:27 Note Text: This note was created using NoteWriter. Subjective Philly Ricks is a 69 year old female. Patient is a 69-year-old female who complains of low back pain that she has been experiencing for the past 1 day. Patient does have a history of urinary tract infection and is questioning whether she may be developing same. Patient denies dysuria or hematuria. Patient has no history of lower back pain and denies history of degenerative disc disease, fracture or surgery to her lumbar spine. Patient states she has full control of bowel and bladder denies episodes of incontinence. Patient reports that she did have a normal bowel movement earlier today. Patient reports no paresthesia or paralysis to her bilateral legs and states that she is able to bear weight and ambulate without difficulty. Patient denies specific accident, injury or movement to explain her low back pain symptoms at this time. Back Pain Review of Systems Musculoskeletal: Positive for back pain. All other systems reviewed and are negative. Objective BP 140/68 Pulse 100 Temp 37.2 ?C (98.9 ?F) Resp 21 Wt 70.9 kg (156 lb 4.9 oz) SpO2 98% Physical Exam Vitals and nursing note reviewed. Constitutional: Appearance: Normal appearance. She is normal weight. HENT: Head: Normocephalic and atraumatic. Nose: Nose normal. Mouth/Throat: Mouth: Mucous membranes are moist. Pharynx: Oropharynx is clear. Eyes: Extraocular Movements: Extraocular movements intact. Conjunctiva/sclera: Conjunctivae normal. Pupils: Pupils are equal, round, and reactive to light. Cardiovascular: Rate and Rhythm: Normal rate. Pulses: Normal pulses. Pulmonary: Effort: Pulmonary effort is normal. Breath sounds: Normal breath sounds. Musculoskeletal: General: No swelling, tenderness, deformity or signs of injury. Normal range of motion. Cervical back: Normal range of motion and neck supple. Right lower leg: No edema. Left lower leg: No edema. Skin: General: Skin is warm and dry. Capillary Refill: Capillary refill takes less than 2 seconds. Findings: No bruising or erythema. Neurological: General: No focal deficit present. Mental Status: She is alert and oriented to person, place, and time. Sensory: No sensory deficit. Motor: No weakness. Coordination: Coordination normal. Gait: Gait normal. Psychiatric: Mood and Affect: Mood normal. Behavior: Behavior normal. Thought Content: Thought content normal. Judgment: Judgment normal. Assessment and Plan Physical exam findings as noted above. Urinalysis is completely negative with no leukocyte esterase, nitrite or protein. Trace blood is present. X-ray lumbar spine demonstrates disc space narrowing at multiple levels in addition to moderate osteophyte formation as described by the radiologist. Radiologist reports no additional acute findings. Patient was provided with prescriptions for Robaxin 500 mg and prednisone 10 mg. Supportive care instructions were discussed and the patient was clearly advised to report to an emergency department if she notes any acute worsening of her symptoms. Patient verbalizes excellent understanding of all of the information reviewed. CLINICAL IMPRESSION: Lumbar Back pain ASSESSMENT/PLAN: 1. Lumbar back pain - ICD9: 724.2, ICD10: M54.50 - XR LUMBAR GENERAL 3V AP/LAT/L5-S1 - METHOCARBAMOL 500 MG TABLET - PREDNISONE 10 MG TABLET MDM Amount and/or Complexity of Data Reviewed Clinical lab tests: ordered and reviewed Tests in the radiology section of CPT?: ordered and reviewed Risk of Complications, Morbidity, and/or Mortality Presenting problems: low Diagnostic procedures: low Management options: low Isaias Schuler PA-C [facility] 10-15-2024 History of Presen t illness Narrative This note was created using [employer]. Subjective Philly Ricks is a 69 year old female. Patient is a 69-year-old female who complains of low back pain that she has been experiencing for the past 1 day. Patient does have a history of urinary tract infection and is questioning whether she may be developing same. Patient denies dysuria or hematuria. Patient has no history of lower back pain and denies history of degenerative disc disease, fracture or surgery to her lumbar spine. Patient states she has full control of bowel and bladder denies episodes of incontinence. Patient reports that she did have a normal bowel movement earlier today. Patient reports no paresthesia or paralysis to her bilateral legs and states that she is able to bear weight and ambulate without difficulty. Patient denies specific accident, injury or movement to explain her low back pain symptoms at this time. Back Pain Review of Systems Musculoskeletal: Positive for back pain. All other systems reviewed and are negative. Objective BP 140/68 Pulse 100 Temp 37.2 C (98.9 F) Resp 21 Wt 70.9 kg (156 lb 4.9 oz) SpO2 98% Physical Exam Vitals and nursing note reviewed. Constitutional: Appearance: Normal appearance. She is normal weight. HENT: Head: Normocephalic and atraumatic. Nose: Nose normal. Mouth/Throat: Mouth: Mucous membranes are moist. Pharynx: Oropharynx is clear. Eyes: Extraocular Movements: Extraocular movements intact. Conjunctiva/sclera: Conjunctivae normal. Pupils: Pupils are equal, round, and reactive to light. Cardiovascular: Rate and Rhythm: Normal rate. Pulses: Normal pulses. Pulmonary: Effort: Pulmonary effort is normal. Breath sounds: Normal breath sounds. Musculoskeletal: General: No swelling, tenderness, deformity or signs of injury. Normal range of motion. Cervical back: Normal range of motion and neck supple. Right lower leg: No edema. Left lower leg: No edema. Skin: General: Skin is warm and dry. Capillary Refill: Capillary refill takes less than 2 seconds. Findings: No bruising or erythema. Neurological: General: No focal deficit present. Mental Status: She is alert and oriented to person, place, and time. Sensory: No sensory deficit. Motor: No weakness. Coordination: Coordination normal. Gait: Gait normal. Psychiatric: Mood and Affect: Mood normal. Behavior: Behavior normal. Thought Content: Thought content normal. Judgment: Judgment normal. Assessment and Plan Physical exam findings as noted above. Urinalysis is completely negative with no leukocyte esterase, nitrite or protein. Trace blood is present. X-ray lumbar spine demonstrates disc space narrowing at multiple levels in addition to moderate osteophyte formation as described by the radiologist. Radiologist reports no additional acute findings. Patient was provided with prescriptions for Robaxin 500 mg and prednisone 10 mg. Supportive care instructions were discussed and the patient was clearly advised to report to an emergency department if she notes any acute worsening of her symptoms. Patient verbalizes excellent understanding of all of the information reviewed. CLINICAL IMPRESSION: Lumbar Back pain ASSESSMENT/PLAN: 1. Lumbar back pain - ICD9: 724.2, ICD10: M54.50 - XR LUMBAR GENERAL 3V AP/LAT/L5-S1 - METHOCARBAMOL 500 MG TABLET - PREDNISONE 10 MG TABLET MDM Amount and/or Complexity of Data Reviewed Clinical lab tests: ordered and reviewed Tests in the radiology section of CPT : ordered and reviewed Risk of Complications, Morbidity, and/or Mortality Presenting problems: low Diagnostic procedures: low Management options: low Isaias Schuler PA-C documented in this encounter [facility] 10-03-2024 History of Presen t illness Narrative Subjective Patient ID: Portia Ricks is a 69 y.o. female who presents for Follow-up (6mo chk- rev labs(from sonia)-under media tab). HPI Blood pressure stable on medication. No troubles with the medication. Kidneys and electrolytes are okay. Thyroid stable on medication. Will need a TSH in 6 months Unfortunately her daughter in May. She has not been doing well with her diet for the last 5 months. Her A1c was only 7.1. So that is not so bad. Talked about maybe increasing the metformin to 750 mg. But will hold for now. If needed Jardiance is covered. Can work on lifestyle changes eating better before he make any changes we will get some labs in 6 months. He is doing okay mood blue the anxiety has been pretty well-controlled with the Lexapro. She was wondering about a higher dose, but she is going to work on getting more exercise and activity as the weather gets nicer before we change any medicines Lab and office visit 6 months Due for mammogram. No pain or masses in either breast. You might be establishing with [employer] in [place]. Would be due for a Cologuard at the end of the year. Will order at the next office visit. Review of Systems Constitutional: Negative for fatigue. Eyes: Negative for visual disturbance. Respiratory: Negative for cough and shortness of breath. Cardiovascular: Negative for chest pain and palpitations. Gastrointestinal: Negative for abdominal pain, blood in stool and constipation. Skin: Negative for rash. Neurological: Negative for headaches. Objective BP 124/78 Pulse 62 Ht 1.651 m (5' 5) Wt 71.2 kg (157 lb) SpO2 100% BMI 26.13 kg/m Physical Exam Constitutional: Appearance: Normal appearance. HENT: Head: Normocephalic and atraumatic. Cardiovascular: Rate and Rhythm: Normal rate and regular rhythm. Heart sounds: Normal heart sounds. Pulmonary: Effort: Pulmonary effort is normal. Breath sounds: Normal breath sounds. Skin: General: Skin is warm and dry. Neurological: General: No focal deficit present. Mental Status: She is alert and oriented to person, place, and time. Psychiatric: Mood and Affect: Mood normal. Behavior: Behavior normal. Thought Content: Thought content normal. Judgment: Judgment normal. Assessment/Plan Problem List Items Addressed This Visit ICD-10-CM Acquired hypothyroidism E03.9 Relevant Orders Thyroid Stimulating Hormone Anxiety F41.9 Benign essential HTN I10 Relevant Orders CBC Comprehensive Metabolic Panel Diabetes (Multi) - Primary E11.9 Relevant Orders CBC Comprehensive Metabolic Panel Hemoglobin A1C documented in this encounter [facility] Work Phone: 03-16-2024 Evaluation + Plan note Associated Problem(s): Hyperlipemia, mixed Orders: amitriptyline (Elavil) 25 mg tablet; Take 1 tablet (25 mg) by mouth once daily at bedtime. pravastatin (Pravachol) 20 mg tablet; Take 1 tablet (20 mg) by mouth once daily. [facility] Work Phone: 03-16-2024 Evaluation + Plan note Associated Problem(s): Anxiety Orders: escitalopram (Lexapro) 20 mg tablet; Take 1 tablet (20 mg) by mouth once daily. [facility] Work Phone: 03-16-2024 Evaluation + Plan note Associated Problem(s): Acquired hypothyroidism Orders: levothyroxine (Synthroid, Levoxyl) 75 mcg tablet; Take 1 tablet (75 mcg) by mouth once daily. [facility] Work Phone: 03-16-2024 Evaluation + Plan note Associated Problem(s): Benign essential HTN Orders: losartan (Cozaar) 25 mg tablet; Take 1 tablet (25 mg) by mouth once daily. [facility] Work Phone: 03-16-2024 Evaluation + Plan note Associated Problem(s): Diabetes (Multi) Orders: metFORMIN XR 500 mg 24 hr tablet; Take 2 tablets (1,000 mg) by mouth once daily. Comprehensive Metabolic Panel; Future Hemoglobin A1C; Future Comprehensive Metabolic Panel Hemoglobin A1C [facility] Work Phone: 03-16-2024 History of Presen t illness Narrative Subjective Reason for Visit: Portia Ricks is an 68 y.o. female here for a Medicare Wellness visit. Past Medical, Surgical, and Family History reviewed and updated in chart. Reviewed all medications by prescribing practitioner or clinical pharmacist (such as prescriptions, OTCs, herbal therapies and supplements) and documented in the medical record. HPI Son 2021 MMG 2022 Takes her metformin without troubles. Will need the results of her labs. Weight is the same. Blood pressure stable on medicine looking for the results from the labs. Anxiety stable on medication Lipids stable on medication. Pneumonia shots done. Need results from February. Will schedule an office visit 6 months from now and did print out a CMP and A1c orders to be done in [place]. Patient Care Team: Maria Eugenia Ly MD as PCP - General Maria Eugenia Ly MD as PCP - [employer] PCP Maria Eugenia Ly MD Review of Systems Constitutional: Negative for fatigue. Eyes: Negative for visual disturbance. Respiratory: Negative for cough, chest tightness and shortness of breath. Cardiovascular: Negative for chest pain and palpitations. Gastrointestinal: Negative for abdominal pain, constipation and diarrhea. Skin: Negative for rash. Neurological: Negative for headaches. Objective Vitals: BP 120/78 Pulse 87 Ht 1.651 m (5' 5) Wt 69.7 kg (153 lb 9.6 oz) SpO2 98% BMI 25.56 kg/m Physical Exam Constitutional: Appearance: Normal appearance. HENT: Head: Normocephalic and atraumatic. Cardiovascular: Rate and Rhythm: Normal rate and regular rhythm. Heart sounds: Normal heart sounds. Pulmonary: Effort: Pulmonary effort is normal. Breath sounds: Normal breath sounds. Skin: General: Skin is warm and dry. Neurological: General: No focal deficit present. Mental Status: She is alert and oriented to person, place, and time. Psychiatric: Mood and Affect: Mood normal. Behavior: Behavior normal. Thought Content: Thought content normal. Judgment: Judgment normal. Assessment & Plan Hyperlipemia, mixed Orders: amitriptyline (Elavil) 25 mg tablet; Take 1 tablet (25 mg) by mouth once daily at bedtime. pravastatin (Pravachol) 20 mg tablet; Take 1 tablet (20 mg) by mouth once daily. Anxiety Orders: escitalopram (Lexapro) 20 mg tablet; Take 1 tablet (20 mg) by mouth once daily. Acquired hypothyroidism Orders: levothyroxine (Synthroid, Levoxyl) 75 mcg tablet; Take 1 tablet (75 mcg) by mouth once daily. Benign essential HTN Orders: losartan (Cozaar) 25 mg tablet; Take 1 tablet (25 mg) by mouth once daily. Type 2 diabetes mellitus without complication, without long-term current use of insulin (Multi) Orders: metFORMIN XR 500 mg 24 hr tablet; Take 2 tablets (1,000 mg) by mouth once daily. Comprehensive Metabolic Panel; Future Hemoglobin A1C; Future Comprehensive Metabolic Panel Hemoglobin A1C Routine general medical examination at health care facility Orders: 1 Year Follow Up In Primary Care - Wellness Exam; Future documented in this encounter [facility] Work Phone: 03-16-2024 Miscellaneous Notes Associated Problem(s): Hyperlipemia, mixed Orders: amitriptyline (Elavil) 25 mg tablet; Take 1 tablet (25 mg) by mouth once daily at bedtime. pravastatin (Pravachol) 20 mg tablet; Take 1 tablet (20 mg) by mouth once daily. Associated Problem(s): Anxiety Orders: escitalopram (Lexapro) 20 mg tablet; Take 1 tablet (20 mg) by mouth once daily. Associated Problem(s): Acquired hypothyroidism Orders: levothyroxine (Synthroid, Levoxyl) 75 mcg tablet; Take 1 tablet (75 mcg) by mouth once daily. Associated Problem(s): Benign essential HTN Orders: losartan (Cozaar) 25 mg tablet; Take 1 tablet (25 mg) by mouth once daily. Associated Problem(s): Diabetes (Multi) Orders: metFORMIN XR 500 mg 24 hr tablet; Take 2 tablets (1,000 mg) by mouth once daily. Comprehensive Metabolic Panel; Future Hemoglobin A1C; Future Comprehensive Metabolic Panel Hemoglobin A1C documented in this encounter [facility] Work Phone: 06-24-2023 History of Presen t illness Narrative Subjective Patient ID: Portia Ricks is a 68 y.o. female who presents for Follow-up ([facility]). HPI A1c number was better at 7 but still want to continue the metformin for now. Weight is up a little bit through the holidays, so we will continue the metformin for now. Labs in 6 months. Thyroid stable on medication Blood pressure stable on medication Pneumonia shots done. Review of Systems Constitutional: Negative for fatigue. Eyes: Negative for visual disturbance. Respiratory: Negative for cough, chest tightness and shortness of breath. Cardiovascular: Negative for chest pain and palpitations. Gastrointestinal: Negative for abdominal pain, constipation and diarrhea. Skin: Negative for rash. Neurological: Negative for headaches. Objective BP 126/78 Pulse 91 Ht 1.651 m (5' 5) Wt 68.8 kg (151 lb 9.6 oz) SpO2 98% BMI 25.23 kg/m Physical Exam Constitutional: Appearance: Normal appearance. HENT: Head: Normocephalic and atraumatic. Cardiovascular: Rate and Rhythm: Normal rate and regular rhythm. Heart sounds: Normal heart sounds. Pulmonary: Effort: Pulmonary effort is normal. Breath sounds: Normal breath sounds. Skin: General: Skin is warm and dry. Neurological: General: No focal deficit present. Mental Status: She is alert and oriented to person, place, and time. Psychiatric: Mood and Affect: Mood normal. Behavior: Behavior normal. Thought Content: Thought content normal. Judgment: Judgment normal. Assessment/Plan Problem List Items Addressed This Visit ICD-10-CM Acquired hypothyroidism E03.9 Relevant Orders Thyroid Stimulating Hormone Benign essential HTN I10 Relevant Orders CBC Comprehensive Metabolic Panel Diabetes (CMS/[facility]) - Primary E11.9 Relevant Orders CBC Comprehensive Metabolic Panel Hemoglobin A1C documented in this encounter [facility] Work Phone: 06-05-2023 Miscellaneous Notes Patient notified of results and recommendations as listed below, verbalized understanding of instructions given. Tarsha Fox MA Left message for patient to return call. Cris Kuo Call patient and let her know that she had significant bacterial growth in her urine culture. Macrobid twice a day for 5 days was called and patient should pick it up and get it started as well as continuing previous antibiotics symptoms are persistent patient needs to follow-up with primary care documented in this encounter [facility] 01-04-2023 History of Presen t illness Narrative Subjective Reason for Visit: Portia Ricks is an 67 y.o. female here for a Medicare Wellness visit. Past Medical, Surgical, and Family History reviewed and updated in chart. Reviewed all medications by prescribing practitioner or clinical pharmacist (such as prescriptions, OTCs, herbal therapies and supplements) and documented in the medical record. HPI Cologuard negative 2021 MMG negative 2021 Wt down almost 20 pounds in the last year with better diet and more exercise. Because of the weight loss I am okay with stopping metformin for now. We will get blood test in 2 months. Was in the ER for chest pain, I did not see the labs and likely checked a CBC CMP. I will still repeat that in 2 months but we the other medicines like A1c and thyroid check. She was wondering if she is not could be diabetic anymore she needs to stay on the cholesterol medicine the aspirin, she is on that because of her high family history of stroke. Even with the weight loss her blood pressure has not changed much, she is likely going to need to stay on the losartan. Obviously we will continue the thyroid and recheck the level in 2 months. Patient Care Team: Maria Eugenia Ly MD as PCP - General Maria Eugenia Ly MD [facility] Attributed Provider Maria Eugenia Ly MD Review of Systems Constitutional: Negative for fatigue. Eyes: Negative for visual disturbance. Respiratory: Negative for cough, chest tightness and shortness of breath. Cardiovascular: Negative for chest pain and palpitations. Gastrointestinal: Negative for abdominal pain, constipation and diarrhea. Skin: Negative for rash. Neurological: Negative for headaches. Objective Vitals: BP 128/70 Pulse 82 Ht 1.651 m (5' 5) Wt 66 kg (145 lb 9.6 oz) SpO2 97% BMI 24.23 kg/m Physical Exam Constitutional: Appearance: Normal appearance. HENT: Head: Normocephalic and atraumatic. Cardiovascular: Rate and Rhythm: Normal rate and regular rhythm. Heart sounds: Normal heart sounds. Pulmonary: Effort: Pulmonary effort is normal. Breath sounds: Normal breath sounds. Skin: General: Skin is warm and dry. Neurological: General: No focal deficit present. Mental Status: She is alert and oriented to person, place, and time. Psychiatric: Mood and Affect: Mood normal. Behavior: Behavior normal. Thought Content: Thought content normal. Judgment: Judgment normal. Assessment/Plan Problem List Items Addressed This Visit Acquired hypothyroidism Relevant Orders Thyroid Stimulating Hormone Benign essential HTN Relevant Orders CBC Comprehensive Metabolic Panel Magnesium Vitamin B12 Diabetes (CMS/HCC) Relevant Orders CBC Comprehensive Metabolic Panel Hemoglobin A1C Magnesium Vitamin B12 Hyperlipemia, mixed Relevant Orders Lipid Panel Other Visit Diagnoses Routine general medical examination at health care facility - Primary documented in this encounter [facility] Work Phone: 12-29-2022 Discharge summary Note Date/Time December 29, 2022 9:14pm [facility] Medical Records Department [address] [place] [address] Emergency Department Summary 12/29/22 MR#: [id number] Acct: [id number] Name: PORTIA RICKS Rep #:[id number] : [id number] 67 From: Barb Perrin MD PCP: Dr. Maria Eugenia Ly MD Status:RE G ER Location: ED HPI History of Present Illness Chief Complaint: Chest Pain Informant: patient Onset/Context/Timing Onset: Today Activity at onset: sudden Narrative Narrative: Patient presents with rather sudden onset of right-sided chest pain and shortness of breath approximate 30 minutes prior to arrival. She is a history of a pulmonary embolism 20 years ago. She is currently on low-dose aspirin but no other form of anticoagulant. Patient does state that she was at the gym today and was doing chest presses. She has not had cough or fever. [facility] Medical History (Updated 12/29/22 @ 23:[address] Barb Perrin MD) Depression History of diabetes mellitus Hypothyroidism Allergy/AdvReac Type Severity Reaction Status Date / Time No Known Allergies Allergy Verified 12/29/22 20:44 Social History Smoking Status: Former smoker ROS ROS ED Constitutional Constitutional ED: Denies chills or fever(s) Eyes Eyes: Denies change in vision or discharge from eye(s) ENT ENT ED: Denies discharge from eye(s), rhinorrhea or sore throat Cardiovascular Cardiovascular: Reports chest pain; Denies palpitations Respiratory/Chest Respiratory/Chest: Reports dyspnea; Denies cough Gastrointestinal Gastrointestinal: Denies abdominal pain, nausea or vomiting Musculoskeletal Musculoskeletal: Denies back pain or extremity pain Integumentary Denies Abrasions or rash Neurologic Neurologic: Denies headache(s) or weakness Psychiatric Psychiatric: Denies anxiety or depression Allergic/Immunologic Allergic/Immunologic ED: Denies lip swelling or urticaria EXAM Physical Exam Const Vital Signs: 12/29/22 20:41 12/29/22 21:00 12/29/22 22:00 Temperature 96.6 F L Temperature Source Temporal Pulse Rate 86 98 Respiratory Rate 20 H 13 Blood Pressure 149/90 H 120/63 Blood Pressure Mean 109 82 Pulse Ox 100 99 93 Oxygen Delivery Method Room Air Room Air Room Air 12/29/22 22:27 12/29/22 23:00 Temperature Temperature Source Pulse Rate 87 91 Respiratory Rate 15 20 H Blood Pressure 128/63 H 118/59 L Blood Pressure Mean 84 78 Pulse Ox 97 93 Oxygen Delivery Method Room Air Room Air Positive well nourished and well developed General Appearance ED: well developed HEENT Reports normocephalic and head/scalp atraumatic Eyes PERRL and EOMs intact bilaterally Neck supple Chest Wall inspection of chest normal and palpation of chest normal Resp normal respiratory effort and clear to auscultation bilaterally Cardio regular rate and regular rhythm GI normal to inspection, nondistended, normoactive bowel sounds Palpation: soft Extremity normal to inspection Neuro oriented x3 and no sensory deficits noted Sensorium / Orientation: alert Motor Exam: strength 5/5 throughout Psych mental status grossly normal Skin no rashes or lesions noted Heart Score History: Slightly/Non-Suspicious ECG: Normal Age: >/= 65 years Risk Factors: 1 or 2 Risk Factors Score: 3 MDM MDM MDM Narrative Medical decision making narrative: Patient placed on monitoring manager. Aspirin ordered. Labwork obtained to evaluate for leukocytosis, anemia, and electrolyte derangement. EKG obtained toevaluate for cardiac arrhythmia/ischemia. Given the patient's symptoms and history of pulmonary embolism CTA of the chest is obtained to evaluate for this. Lab Data Attestation: I reviewed the patient's lab results. Labs: Laboratory Results - last 24 hr 12/29/22 12/29/22 20:55 23:10 WBC 13.9 H RBC 4.12 L Hgb 12.5 Hct 37.2 MCV 90.3 MCH 30.3 MCHC 33.6 RDW Std Deviation 43.3 RDW Coeff of Kalia 13.1 Plt Count 445 MPV 8.3 Immature Gran % (Auto) 0.300 Neut % (Auto) 62.4 Lymph % (Auto) 26.3 [place] % (Auto) 8.6 Eos % (Auto) 1.8 Baso % (Auto) 0.6 Absolute Neuts (auto) 8.7 H Absolute Lymphs (auto) 3.65 Nucleated RBC % 0 Sodium 139 Potassium 4.1 Chloride 104 Carbon Dioxide 31.0 Anion Gap 4 L BUN 14 Creatinine 0.89 Estim Creat Clear Calc 53.68 Est GFR (MDRD) Af Amer 81 Est GFR (MDRD) Non-Af 67 BUN/Creatinine Ratio 15.7 Glucose 110 H Calcium 9.3 Troponin I High Sens 8 8 Radiography Diagnostic Testing: Clinical Impression(s) from Imaging Studies Chest CTA 12/29/22 21:00 IMPRESSION: No pulmonary embolus or acute aortic abnormality. Dominant 5 mm pulmonary nodule. Recommend comparison with previous imaging to document long-term stability versus follow-up evaluation as per Fleischner guidelines as neoplastic process is not excluded. Electronically Signed: Shane Parker MD at 22:44 EDT , EKG Initial EKG: Attestation: I personally reviewed and interpreted this EKG as follows: Interpretation: Sinus Rhythm (Sinus at 90 with no acute ischemia.) Follow-up EKG: Attestation: I personally reviewed and interpreted this EKG as follows: Interpretation: Sinus Rhythm (Sinus at 89 with nonspecific T wave flattening in the lateral leads. No acute ST change) Treatment and Re-Evaluation :: CBC was a white count of 13.9 with a hemoglobin of 12.5. Differential is unremarkable. Chemistry studies are unremarkable. Troponin is normal at 8. EKG reveals no acute ischemia. CTA of the chest is obtained and reveals no evidence of pulmonary embolism. Pulmonary nodule is noted that requires either comparison to a prior study or follow-up. When the patient returned from CT, she stated that she fell with her arms and legs were very heavy. Nursing staff noted her to have a hoarse voice. She states she felt like she had a sore throat with some slight tightness in her throat. Due to concern for reaction to the contrast she was given Benadryl and Solu-Medrol. Repeat EKG is performed. She has nonspecific lateral T wave flattening. No acute ST change. On repeat evaluation patient's voice is improving. Her chest pain is improved. CTA of the chest does return with no evidence of pulmonary embolism and her delta troponin returns normal at 8. At this time patient be observed for another hour given her potential allergic reaction to contrast. I will have her written ready for discharge assuming she has no further complications. Patient is comfortable with this plan. Discharge Plan Triage Chief Complaint: Chest Pain ED Provider: Barb Perrin Dx/Rx/DC Orders Clinical Impression: Chest pain Instructions: ED Chest Pain, Uncertain Cause Primary Care Provider: Maria Eugenia Ly Referrals: Maria Eugenia Ly MD [Primary Care Provider] - Keep Marium appointment Disposition Disposition: Home, Self Care What to do if you have Problems For any increased pain, shortness of breath, bleeding, nausea or vomiting, chestpain, or any unexpected problems, contact your Primary Care Provider. Call [facility] ([phone]) or report to the closest Emergency Room. Call 911 if necessary. 12/29/22 2356 <Electronically signed by Barb Perrin MD> Cosigner Signature (if applicable): CC: Dr. Maria Eugenia Ly MD ~ Signed ADDENDUM by Dr. uJles Mckinney MD on 12/30/22 at 0100 Patient was observed until 0100. Patient is doing well. Per checkout plan she is to be discharged to home. Of note there is no dysphonia, drooling etc. 12/30/22 0100<Electronically signed by Jules Mckinney MD> Cosigner Signature (if applicable): cc: Dr. Maria Eugenia Ly MD ~* Signed [facility] Work Phone: 1(235) 933-449505-01-2023 NoteAccession #: [id number] Date of Procedure: 09/06/2022 Pathologist: [facility], Cytology Date Reported: 09/09/2022 Date Received: 09/06/2022 Submitting Physician: ARGENIS GARCIA MD Attending Physician: ARGENIS GRACIA MD FINAL CYTOLOGICAL INTERPRETATION A. THINPREP PAP CERVICAL: Specimen adequacy: SATISFACTORY FOR EVALUATION. Quality Indicator: Endocervical/transformation zone component is present. General Categorization: NEGATIVE FOR INTRAEPITHELIAL LESION OR MALIGNANCY. HIGH RISK HPV TEST RESULT: HPV GENOTYPE 16 NEGATIVE HPV GENOTYPE 18 NEGATIVE HPV GENOTYPE OTHER NEGATIVE Reference Range: Negative Testing for high-risk (HR) type of human papilloma virus (HPV) is performed by the Sam olu HPV Test. The olu HPV Test is a qualitative polymerase chain reaction that amplifies DNA of HPV16, HPV18 and 12 other high-risk HPV types (31, 33, 35, 39, 45, 51, 52, 56, 58, 59, 66, and 68) associated with cervical cancer and its precursor lesions. A positive result indicates the presence of HPV DNA due to one or more of the 14 genotypes: 16, 18, 31, 33, 35, 39, 45, 51, 52, 56, 58, 59, 66, and 68. Negative results indicate HPV DNA concentrations are undetectable or below the pre-set threshold for detection. False negative results may be associated with unoptimized sampling. A negative HR HPV result does not exclude the possibility of future cytologic HSIL or underlying CIN2-3 or cancer. This test is approved for cervical specimens by the US Food and Drug Administration. Results of this test should be interpreted in conjunction with the patient?s Pap test results. Please refer to ASCCP current guidelines for the use of HPV DNA testing, result interpretation, and patient management. The performance of this test was verified by the Molecular Diagnostic Laboratory at [facility]. The lab is certified under the Clinical Laboratory Amendments of 1988 (CLIA 88) as qualified to perform high complexity clinical laboratory testing. This specimen has been analyzed by the [employer] Security[employer] Imaging System ([employer] an automated imaging and review system, which assists the laboratory in evaluating cells on ThinPrep Pap tests. Following automated imaging, selected diaz from every slide were reviewed by a heating fixture tender and/or pathologist. Electronically Signed Out By [facility], Cytology//JONELLE By the signature on this report, the individual or group listed as making the Final Interpretation/Diagnosis certifies that they have reviewed this case. Diagnostic interpretation performed at [facility] [address] [facility] [address] Educational Note: Cervical cytology is a screening procedure primarily for squamous cancers and precursors and has associated false-negative and false-positive results as evidenced by published data. Your patient?s test should be interpreted in this context, together with patient?s history and clinical findings. Regular sampling and follow-up of unexplained clinical signs and symptoms are recommended to minimize false negative results. Clinical History Date of Last Menstrual Period: Menopause 2008 Other Clinical Conditions: COTEST HPV(Genotype) except for ASC-H, HSIL, Carcinoma - Include HPV Genotype testing Annual Clinical Diagnosis History: Encounter for Papanicolaou smear of cervix - (Z12.4); Women's annual routine gynecological examination - (Z01.419) Source of Specimen A: THINPREP PAP CERVICAL [facility] Department of Pathology [id number] [id number] at [place]villeComment on above:Performed By: #### C #### [facility] Cytology [id number] [facility] [id number] History of Present illness Narrative* Vivienne Amaral PA-C - 08/23/2022 2:36 PM EDT This note was created using [employer]. Subjective Philly Ricks is a 67 year old female. HPI Presents with pelvic cramping and urinary frequency over the past week. She has some pressure with urination. She had seen her women's health provider on August 18 and had a negative culture. She states she still continues to have symptoms so she came back in. She does follow back up with them a first. She started off with some low back pain when her symptoms started. Denies any diarrhea or vomiting. No fever. She has had some fatigue. States she has not had a UTI in several years. She has a history of for C-sections and a laparoscopy previously. Review of Systems Constitutional: Positive for fatigue. Negative for fever. HENT: Negative. Respiratory: Negative. Cardiovascular: Negative. Genitourinary: Positive for frequency and pelvic pain. Negative for dysuria and flank pain. Musculoskeletal: Positive for back pain. Neurological: Negative. Hematological: Negative. Psychiatric/Behavioral: Negative. All other systems reviewed and are negative. No past medical history on file. Current Outpatient Medications Medication Sig Dispense Refill amitriptyline (ELAVIL) 25 mg tablet escitalopram oxalate (LEXAPRO) 20 mg tablet levothyroxine (SYNTHROID) 75 mcg tablet losartan (COZAAR) 25 mg tablet metFORMIN ER (GLUCOPHAGE XR) 500 mg 24 hr tablet Take by mouth. pravastatin (PRAVACHOL) 20 mg tablet aspirin, enteric coated (ASPIRIN, ENTERIC COATED) 81 mg EC tablet Take 81 mg by mouth once daily. nitrofurantoin monohydrate and macrocrystal (MACROBID) 100 mg capsule Take 1 capsule by mouth twicedaily with meals for 5 days. 10 capsule 0 No current facility-administered medications for this visit. No past surgical history on file. No family history on file. Social History Tobacco Use Smoking status: Never Smokeless tobacco: Never Objective BP 120/76 Pulse 81 Temp (!) 35.9 C (96.7 F) Resp 18 Wt 70 kg (154 lb 6.4 oz) SpO2 98% Physical Exam Vitals reviewed. Constitutional: Appearance: Normal appearance. HENT: Head: Normocephalic and atraumatic. Cardiovascular: Rate and Rhythm: Normal rate and regular rhythm. Heart sounds: Normal heart sounds. Pulmonary: Effort: Pulmonary effort is normal. Breath sounds: Normal breath sounds. Abdominal: General: Abdomen is flat. Palpations: Abdomen is soft. Neurological: Mental Status: She is alert. Assessment and Plan ASSESSMENT/PLAN: 1. Urinary frequency - ICD9: 788.41, ICD10: R35.0 acute - UA positive for enrico esterase and hematuria - Send urine for culture - Begin treatment with Macrobid 100 mg BID for 5 days -If culture negative follow-up with women's health. September dc antibiotic. - UA DIP, URINE (POC) - URINE CULTURE Vivienne Amaral PA-C [facility] History of Present illness NarrativePresents stating that for the last week she has concerns for possible bladder infection. She initially had some back pain and lower abdominal pressure and a tingling sensation when she urinated. The back pain has resolved and the cranberry juice that she has been drinking recently has to help with her urinary symptoms. She states she still has some suprapubic type pressure. Denies any bowel problems. Denies any vaginal bleeding. Denies any urinary frequency or burning.[address] Work Phone: Evaluation noteNo assessment information available [facility] Work Phone: Evaluation note* Diagnosis Urinary frequency- Primary [facility] Diagnosis Routine general medical examination at health care facility- Primary Routine general medical examination at a health care facility Type 2 diabetes mellitus without complication, without long-term current use of insulin (CMS/HCC) Acquired hypothyroidism Unspecified hypothyroidism Hyperlipemia, mixed Mixed hyperlipidemia Benign essential HTN documented in this encounter [facility] Work Phone: Evaluation note* Diagnosis Type 2 diabetes mellitus without complication, without long-term current use of insulin (CMS/HCC)- Primary Benign essential HTN Acquired hypothyroidism Unspecified hypothyroidism documented in this encounter [facility] Work Phone: Evaluation note* Diagnosis Routine general medical examination at health [facility] facility- Primary Routine general medical examination at a health care facility Hyperlipemia, mixed Mixed hyperlipidemia Anxiety Anxiety state, unspecified Acquired hypothyroidism Unspecified hypothyroidism Benign essential HTN Type 2 diabetes mellitus without complication, without long-term current use of insulin (Multi) documented in this encounter [facility] Work Phone: Evaluation note* Diagnosis Routine general medical examination at [facility] care facility- Primary Routine general medical examination at a health care facility Hyperlipemia, mixed Mixed hyperlipidemia Anxiety Anxiety state, unspecified Acquired hypothyroidism Unspecified hypothyroidism Benign essential HTN Type 2 diabetes mellitus without complication, without long-term current use of insulin Type 2 diabetes mellitus without complication, without long-term current use of insulin- Primary Benign essential HTN Acquired hypothyroidism Unspecified hypothyroidism Anxiety Anxiety state, unspecified documented in this encounter [facility] Work Phone: Evaluation note* Diagnosis Lumbar back pain- Primary Lumbago Lumbar back pain Lumbago [facility] Diagnosis Lumbar back pain Lumbago [facility] encounter [facility] Narrative* The patient is being seen for the subsequent annual wellness visit. * Past Medical, Surgical and Family History: reviewed and updated in chart. * Medications and Supplements: Medications and supplements, including calcium and vitamins reviewed and updated in chart. * No, the patient is not using opioids. * Patient Self Assessment of Health Status: good. * Tobacco use: User * Alcohol use: Non-User * Illicit drug use: Non-User * Current diet: Diabetic Diet, does consume adequate fluids and does consume caffeine. * Exercise Frequency: regularly. * Depression/Suicide Screening: . * During the past 2 weeks, the patient has not felt down, depressed or hopeless. * During the past 2 weeks, the patient has not felt little interest or pleasure in doing things. * Hearing Impairment: none. * Cognitive Impairment: No cognitive impairment observed. * Bathing: performs independently. * Dressing: performs independently. * Walking: performs independently. * Managing Finances: performs independently. * Shopping: performs independently. * Managing Medications: performs independently. * Housework / Basic Home Maintenance: performs independently. * Falls Risk Screening:. PORTIA has not fallen in the last 6 months. * Home safety risk factors: none. * covid shot done * Pneumovax [ rec ], Prevnar [ done ], Shingles [ done ], recommend yearly flu shot. * MMG 2019, due 2021. * Colon due 2021 - Dr Villanueva * Diabetes Type II - Takes and tolerates medications. No hypoglycemia. Counseled on diet with low carbohydrate intake, weight loss and increased activity levels/exercise. * Hypertension - Takes medication without side effects. No CP/SOB/Palpitations. Follows a no added salt diet. Counseled diet, activity and weight loss. * Hypothyroidism - No fatigue/cold intolerance/hair changes/skin changes/weight gain. * Hyperlipidemia - Takes and tolerates medications without fatigue and myalgias. * needs labs [facility] Work Phone: History of Present illness Narrative* only on 2 [facility] ER for stomach issues. stable on 2 pills but last a1c 7.4. * Did feel better clinically when we increase the levothyroxine to 75 mcg. TSH was 2. * Diabetes Type II - Takes and tolerates medications. No hypoglycemia. Counseled on diet with low carbohydrate intake, weight loss and increased activity levels/exercise. * Hypertension - Takes medication without side effects. No CP/SOB/Palpitations. Follows a no added salt diet. Counseled diet, activity and weight loss. * Hypothyroidism - No fatigue/cold intolerance/hair changes/skin changes/weight gain. * Hyperlipidemia - Takes and tolerates medications without fatigue and myalgias. * Cologuard order done today. Stop the aspirin for 1 week before she collects the sample. Then restart the aspirin. [facility] Work Phone: reason for referral (narrative)* Consultation (Routine) - Authorized Specialty Diagnoses / Procedures Referred By Radha malik Referred To Contact Primary Care Procedures Follow Up In Primary Care - [place] [address] [place], [place] [id number] Referral ID Status Reason Start Date Expiration Date V isits Requested Visits Authorized [id number] Authorized 01/04/2023 07/03/2023 1 1 [facility] Work Phone: Refsgh for referral (narrative)* Consultation (Routine) - Authorized Specialty Diagnoses / Procedures Referred By Radha amlik Referred To Contact Primary Care Procedures Follow Up In Primary Care - Established Maria Eugenia Ly MD [address] [place], [place] [id number] Referral ID Status Reason Start Date Expiration Date V isits Requested Visits Authorized [id number] Authorized 06/24/2023 06/23/2024 1 1 [facility] Work Phone: Renlxw for referral (narrative)No reason for referral information availableGrand [facility] Work Phone: Reason for referral (narrative)* Consultation (Routine) - Authorized Specialty Diagnoses / Procedures Referred By Radha malik Referred To Contact Primary Care Procedures Follow Up In Primary Care - Established Maria Eugenia Ly MD [address] [place] [id number] Phone: tel: fax: Referral ID Status Reason Start Date Expiration Date V isits Requested Visits Authorized [id number] Authorized 10/03/2024 10/03/2025 1 1 [facility] Work Phone: reason for visit Narrative* Diagnostic Procedure Only (Urgent) - Closed Specialty Diagnoses / Procedures Referred By Radha malik Referred To Contact XR IMAGING Diagnoses Lumbar back pain Procedures XR LUMBAR GENERAL 3V AP/LAT/L5-S1 RADEX SPINE LUMBOSACRAL 2/3 VIEWS Isaias Schuler PA-C [address] [facility] [address] [place] [address] Phone: tel: fax: [place] [address] Referral ID Status Reason Start Date Expiration Date V isits Requested Visits Authorized [id number] Closed Auto-Generate d Referral 10/15/2024 11/14/2025 1 1 [facility] Summary Purpose Family History No Family History Records FoundUnknown Family Member Name Dates Details Family history of hypertensi on: Mother, Father, Grandparent(V17.49, Z82.49) Status:Active Family history of cerebrovas cular accident (CVA): Mother, Father(V17.1, Z82.3) Status:Active 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 Family history of diabetes m ellitus: Grandparent(V18.0, Z83.3) Status:Active Unknown Family Member Name Dates Details Family history of hypertensi on: Mother, Father, Grandparent(V17.49, Z82.49) Status:Active Family history of cerebrovas cular accident (CVA): Mother, Father(V17.1, Z82.3) Status:Active 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 Family history of diabetes m ellitus: Grandparent(V18.0, Z83.3) Status:Active Unknown Family Member Name Dates Details Family history of hypertensi on: Mother, Father, Grandparent(V17.49, Z82.49) Status:Active Family history of cerebrovas cular accident (CVA): Mother, Father(V17.1, Z82.3) Status:Active 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 Family history of diabetes m ellitus: Grandparent(V18.0, Z83.3) Status:Active Unknown Family Member Name Dates Details Family history of hypertensi on: Mother, Father, Grandparent(V17.49, Z82.49) Status:Active Family history of cerebrovas cular accident (CVA): Mother, Father(V17.1, Z82.3) Status:Active 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 Family history of diabetes m ellitus: Grandparent(V18.0, Z83.3) Status:Active Unknown Family Member Name Dates Details Family history of hypertensi on: Mother, Father, Grandparent(V17.49, Z82.49) Status:Active Family history of cerebrovas cular accident (CVA): Mother, Father(V17.1, Z82.3) Status:Active 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 Family history of diabetes m ellitus: Grandparent(V18.0, Z83.3) Status:Active Unknown Family Member Name Dates Details Family history of hypertensi on: Mother, Father, Grandparent(V17.49, Z82.49) Status:Active Family history of cerebrovas cular accident (CVA): Mother, Father(V17.1, Z82.3) Status:Active 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 Family history of diabetes m ellitus: Grandparent(V18.0, Z83.3) Status:Active Unknown Family Member Name Dates Details Family history of hypertensi on: Mother, Father, Grandparent(V17.49, Z82.49) Status:Active Family history of cerebrovas cular accident (CVA): Mother, Father(V17.1, Z82.3) Status:Active 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 Family history of diabetes m ellitus: Grandparent(V18.0, Z83.3) Status:Active Unknown Family Member Name Dates Details Family history of hypertensi on: Mother, Father, Grandparent(V17.49, Z82.49) Status:Active Family history of cerebrovas cular accident (CVA): Mother, Father(V17.1, Z82.3) Status:Active 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 PT STATES SHE HAS HAD SOME BACK PAIN, AND LOWER ABDOMINAL PRESSURE. PT STATES THE SYMPTOMS HAVE BEEN GOING ON SINCE LAST WEEK. PT ALSO STATES SHE HAS BEEN DRINKING CRANBERRY JUICE TO HELP WITH URINATION. PT STATES WHEN SHE URINATES THERE IS A TINGLING SENSATION. PT DENIES ANY BURNING, AND FREQUENCY OF URINATION. Chief Complaint and Reason for Visit Chief Complaint CP Chief Complaint Admit Date FASTING September 11, 2024 9:02am Additional Source Comments INFORMATION SOURCE (unrecogn ized section and content) DATE CREATED AUTHOR 12/20/2018 [facility] DATE CREATED AUTHOR AUTHOR'S ORGANIZ ATION 03/27/2022 [facility] DATE CREATED AUTHOR AUTHOR'S ORGANIZ ATION 09/07/2022 [employer] DATE CREATED AUTHOR AUTHOR'S ORGANIZ ATION 09/12/2022 [facility] DATE CREATED AUTHOR AUTHOR'S ORGANIZ ATION 03/29/2023 [facility] DATE CREATED AUTHOR AUTHOR'S ORGANIZ ATION 09/17/2024 [facility] DATE CREATED AUTHOR AUTHOR'S ORGANIZ ATION 10/06/2024 [facility] DATE CREATED AUTHOR AUTHOR'S ORGANIZ ATION 10/16/2024 [facility] Goals (unrecognized section and content) Goals may be documented in a n alternate sectionGoals may be documented in an alternate sectionGoals may be documented in an alternate section Source Comments (unrecognize d section and content) In the event this informatio n is protected by the Federal Confidentiality of Alcohol and Drug Abuse Patient Records regulations: The Federal rules restrict any use of the information to criminally investigate or prosecute any alcohol or drug abuse patient.[facility] the event this information is protected by the Federal Confidentiality of Alcohol and Drug Abuse Patient Records regulations: The Federal rules restrict any use of the information to criminally investigate or prosecute any alcohol or drug abuse patient.[facility] the event this information is protected by the Federal Confidentiality of Alcohol and Drug Abuse Patient Records regulations: The Federal rules restrict any use of the information to criminally investigate or prosecute any alcohol or drug abuse patient.[facility] the event this information is protected by the Federal Confidentiality of Alcohol and Drug Abuse Patient Records regulations: The Federal rules restrict any use of the information to criminally investigate or prosecute any alcohol or drug abuse patient.[facility] Reason for Visit (unrecogniz ed section and content) Reason Comments Urinary Frequency With lower abd pain x1 week Reason Comments Medicare Annual Wellness Visit Subsequen t Reason Comments Results Reason Comments Follow-up REV LABS Specialty Diagnoses / Procedures Referred By Contac t Referred To Contact Primary Care Procedures Follow Up In Primary Care - Established Maria Eugenia Ly MD [address] [place] [address] Referral ID Status Reason Start Date Expiration Date V isits Requested Visits Authorized [id number] Authorized 01/04/2023 07/03/2023 1 1 Reason Comments Medicare Annual Wellness Visit Subsequen t Renew meds Specialty Diagnoses / Procedures Referred By Radha t Referred To Contact Primary Care Procedures Follow Up In Primary Care - Established Maria Eugenia Ly MD Phone: tel: fax: Referral ID Status Reason Start Date Expiration Date V isits Requested Visits Authorized [id number] Authorized 06/24/2023 06/23/2024 1 1 Reason Comments Follow-up 6mo chk- rev labs(fr om sonia)-under media tab Specialty Diagnoses / Procedures Referred By Radha malik Referred To Contact Primary Care Procedures Follow Up In Primary Care - Established Maria Eugenia Ly MD [address] [address] Phone: tel: fax: Referral ID Status Reason Start Date Expiration Date V isits Requested Visits Authorized [id number] Authorized 03/16/2024 03/16/2025 1 1 Reason Comments Back Pain Lower back pain x 3 days back spasms when getting up. Care Teams (unrecognized sec tion and content) Sound Effects Supervisor Relationship Specialty Start Date End Date Maria Eugenia Ly MD [address] [place] [address] PCP - General Family Medicine 08/23/22 Team Status: Active Member Role Status Dates Dr. Arturo Bravo MD Family Provider Active Dr. Maria Eugenia Ly MD Primary Care Provider Active Team Status: Inactive Member Role Status Dates Dr. Maria Eugenia Ly MD Primary Care Provider Active Dr. Barb Perrin MD Emergency Provider Active Sound Effects Supervisor Relationship Specialty Start Date End Date Maria Eugenia Ly MD [address] [place] [address] PCP - General 08/18/22 Maria Eugenia Ly MD [address] [place] [address] PCP - [facility] Attributed Provider 05/09/21 Maria Eugenia Ly MD [address] [place] [address] 08/18/22 Sound Effects Supervisor Relationship Specialty Start Date End Date Maria Eugenia Ly MD [address] [place] [address] PCP - General Family Medicine 08/23/22 Sound Effects Supervisor Relationship Specialty Start Date End Date Maria Eugenia Ly MD [address] [place] [address] PCP - General 08/18/22 Maria Eugenia Ly MD [address] [place] [address] PCP - [facility] Attributed Provider 05/09/21 Maria Eugenia Ly MD [address] [place] [address] 08/18/22 Sound Effects Supervisor Relationship Specialty Start Date End Date Maria Eugenia Ly MD PCP - General 08/18/22 Maria Eugenia Ly MD [address] [place] [id number] PCP - [employer] PCP 06/09/23 Maria Eugenia Ly MD 08/18/22 Team Status: Inactive Member Role Status Dates Dr. Maria Eugenia Ly MD Primary Care Provider Active Start: September 11, 2024 End: September 11, 2024 Dr. Maria Eugenia Ly MD Attending Provider Active Start: September 11, 2024 End: September 11, 2024 Dr. Maria Eugenia Ly MD Referring Provider Active Start: September 11, 2024 End: September 11, 2024 Sound Effects Supervisor Relationship Specialty Start Date End Date Maria Eugenia Ly MD [address] [address] PCP General 08/18/22 Maria Eugenia Ly MD [address] [address] PCP - [employer] PCP 06/09/23 Maria Eugenia Ly MD [address] [address] 08/18/22 Sound Effects Supervisor Relationship Specialty Start Date End Date Maria Eugenia Ly MD [address] [place] [address] PCP - [facility] Medicine 08/23/22 Sound Effects Supervisor Relationship Specialty Start Date End Date Maria Eugenia Ly MD [address] [place] [address] PCP - [facility] Family Medicine 08/23/22 FOR RECORDS PERTAINING TO PATIENTS WHO ARE OR HAVE BEEN ENROLLED IN A CHEMICAL DEPENDENCY/SUBSTANCEABUSE PROGRAM, SOME INFORMATION MAY BE OMITTED. This clinical summary was aggregated from multiple sources. Caution should be exercised in using it in the provision of clinical care. This summary normalizes information from multiple sources, and as a consequence, information in this document may materially change the coding, format and clinical context of patient data. In addition, data may be omitted in some cases. CLINICAL DECISIONS SHOULD BE BASED ON THE PRIMARY CLINICAL RECORDS. [facility] [employer] provides no warranty or guarantee of the accuracy or completeness of information in this document.
[2025-03-15 10:13] LABS: Hematocrit 37.4 % (37-47); Hemoglobin 12.4 g/dL (12.0-15.0); Mean Corp Hgb Conc 33.2 g/dL (32-36); Mean Corpuscular Volume 88.6 fL (81-99); Mean Platelet Vol. 8.5 fl (6.2-12.0); Platelet Count 480 K/mm3 (150-450); RBC Distribution Width CV 13.4 % (11.6-14.6); RBC Distribution Width SD 43.8 fl (35.1-43.9); Red Blood Count 4.22 M/mm3 (4.2-5.4); White Blood Count 8.9 K/mm3 (4.4-11.0)
[2025-03-15 10:59] LABS: AST(SGOT) 18 U/L (<=31); Alanine Aminotransfer ALT/SGPT 14 U/L (<=34); Albumin, Serum 4.0 g/dL (3.4-4.8); Alkaline Phosphatase 123 U/L (35-104); Anion Gap 12 (5-15); BUN 11 mg/dL (4-19); BUN/Creat Ratio 16.4 RATIO (10-20); Calcium,Total 9.1 mg/dL (7.6-11.0); Carbon Dioxide 23.6 mmol/L (21.0-32.0); Chloride 103 mmol/L (98-108); Globulin 3.4 g/dL (2.2-4.2); Glucose 156 mg/dL (70-99); Potassium 4.1 mmol/L (3.3-5.1)
== END | disposition home or self-care (01) ==
LOC: MTLAB 09:10
PROVIDERS: PCP Family Medicine; Referring Provider Family Medicine; Visit Provider Family Medicine
DX: E11.9 Type 2 diabetes mellitus without complications (principal); I10 Essential (primary) hypertension; E03.9 Hypothyroidism, unspecified
CPT/HCPCS: 36415; 80053; 83036; 84443; 85027